=== PATIENT | male | born 1940 | race Caucasian/White ===

== ENCOUNTER 2019-08-16 09:16 | Inpatient (IN) | payer OTHER, MEDICARE ==
[2019-08-16] MEDS ORDERED: IPRATROPIUM-ALBUTEROL 3 ML NEB INHALATION STA (09:26)
[2019-08-16] MEDS ORDERED: methylPREDNISolone SOD SUCCI 125 MG/2 ML VIAL IV STA (09:26)
[2019-08-16] MEDS ORDERED: SODIUM CHLORIDE 0.9% 1,000 ML IV STA (09:26)
[2019-08-16] MEDS ORDERED: KETOROLAC 30 MG/ML 1 ML VIAL IVP STA (09:27)
[2019-08-16 09:49] LABS: Basophils % (A) 0 %; Eosinophils # (A) 0.5 k/uL (0-0.7); Eosinophils % (A) 3 %; HCT 45.1 % (39.0-53.0); HGB 13.7 gm/dL (13.0-17.5); Hypochromasia Slight; Lymphocytes # (A) 1.7 k/uL (1.0-4.8); Lymphocytes % (A) 12 %; MCH 29.4 pg (25.0-35.0); MCHC 30.4 g/dL (31.0-37.0); MCV 96.7 fL (80.0-100.0); Mean Platelet Volume 6.3; Monocytes # (A) 0.9 k/uL (0-1.0); Monocytes % (A) 6 %; Neutrophils # (A) 10.9 k/uL (1.3-7.7); Neutrophils % (A) 77 %; Platelet Count 297 k/uL (150-450); RBC 4.67 m/uL (4.30-5.90); RDW 15.1 % (11.5-15.5); WBC 14.2 k/uL (3.8-10.6)
--- NOTE | 2019-08-16 09:52 | ED ---
Chest Pain HPI - General Chief Complaint: Chest Pain Stated Complaint: chest pain Time Seen by Provider: 08/16/19 09:16 Source: patient, family, EMS, RN notes reviewed Mode of arrival: EMS Limitations: no limitations - History of Present Illness Initial Comments: This 79-year-old male with a history of smoking one half to 2 packs a day for a long period time who presents this morning by EMS with complaints of chest pain and shortness of breath. He states he had a cough with clear phlegm sharp left- sided chest pain currently is 4/10 severity though it was worse earlier. He denies any overt fevers chills or sweats. MD Complaint: chest pain, other - Related Data Previous Rx's Medication Instructions Recorded predniSONE 50 mg PO DAILY #5 tab 06/25/15 Allergies Allergy/AdvReac Type Severity Reaction Status Date / Time No Known Allergies Allergy Verified 06/25/15 11:02 Review of Systems ROS Statement: Those systems with pertinent positive or pertinent negative responses have been documented in the HPI. ROS Other: All systems not noted in ROS Statement are negative. Past Medical History Past Medical History: No Reported History History of Any Multi-Drug Resistant Organisms: None Reported Past Surgical History: No Surgical Hx Reported Past Psychological History: No Psychological Hx Reported Smoking Status: Current every day smoker Past Alcohol Use History: None Reported Past Drug Use History: None Reported General Exam - General Exam Comments Initial Comments: Is a well-developed asthenic appearing male who is awake alert oriented 3 Limitations: no limitations General appearance: alert, anxious Head exam: Present: atraumatic, normocephalic, normal inspection Eye exam: Present: normal appearance, PERRL, EOMI. Absent: scleral icterus, conjunctival injection, periorbital swelling ENT exam: Present: mucous membranes dry Neck exam: Present: normal inspection, full ROM, other (Stridor JVD or bruits). Absent: tenderness, meningismus, lymphadenopathy Respiratory exam: Present: wheezes, decreased breath sounds. Absent: respiratory distress, rales, rhonchi, stridor Cardiovascular Exam: Present: regular rate, normal rhythm, normal heart sounds. Absent: systolic murmur, diastolic murmur, rubs, gallop, clicks GI/Abdominal exam: Present: soft, normal bowel sounds. Absent: distended, tenderness, guarding, rebound, rigid, bruit, pulsatile mass Rectal exam: Present: deferred Extremities exam: Present: full ROM, normal capillary refill, other (Essential tremor noted to his right upper extremity trace edema to the lower extremities). Absent: tenderness, pedal edema, joint swelling, calf tenderness Back exam: Present: normal inspection Neurological exam: Present: alert, oriented X3, CN II-XII intact Psychiatric exam: Present: normal affect, normal mood Skin exam: Present: warm, dry, intact, normal color. Absent: rash Course Vital Signs 08/16/19 08/16/19 08/16/19 09:18 09:19 09:30 Temperature 98.0 F Pulse Rate 81 85 Respiratory 20 18 Rate Blood Pressure 157/69 157/69 O2 Sat by Pulse 98 96 98 Oximetry 08/16/19 08/16/19 08/16/19 09:48 09:57 10:00 Temperature Pulse Rate 72 74 71 Respiratory 18 Rate Blood Pressure 135/62 O2 Sat by Pulse 98 Oximetry 08/16/19 08/16/19 08/16/19 10:30 11:00 11:30 Temperature Pulse Rate 66 65 64 Respiratory 18 20 18 Rate Blood Pressure 133/62 104/60 126/56 O2 Sat by Pulse 98 96 97 Oximetry 08/16/19 12:00 Temperature Pulse Rate 66 Respiratory 18 Rate Blood Pressure 110/47 O2 Sat by Pulse 96 Oximetry - Reevaluation(s) Reevaluation #1: 08/16/19 14:55 Reevaluation patient revealed some improvement in his aeration hour he still markedly dyspneic still his vital signs do appear stable however he has diffuse wheezing still and accessory muscle use. Procedures - Smoking Cessation Time Spent Discussing Smoking Cessation w/Patient (Minutes): 3 Patient Acknowledges Need for Cessation: Yes Chest Pain MDM - MDM Patient already chest pain though he is still dyspneic. I did discuss the case with the patient family as well as with Dr. Vega who is covering Dr. Enoch Vu today. Patient be admitted with consultation by Dr. Longo. Disposition Clinical Impression: COPD exacerbation, Chest pain, Smoking Disposition: ADMITTED IP TO THIS [facility] Condition: Fair Referrals: Carlos Mireles MD [Primary Care Provider] - 1-2 days
[2019-08-16 09:57] LABS: INR 0.9 (<1.2); Partial Thromboplastin Time 23.8 sec (22.0-30.0); Prothrombin Time 10.2 sec (9.0-12.0)
[2019-08-16 10:00] LABS: ALT 32 U/L (21-72); AST 27 U/L (17-59); African American GFR (CKD) >90 (>60 ml/min/1.73 sqM); Albumin 4.1 g/dL (3.5-5.0); Alkaline Phosphatase 78 U/L (38-126); Anion Gap 6 mmol/L; Blood Urea Nitrogen 21 mg/dL (9-20); Calcium 9.4 mg/dL (8.4-10.2); Carbon Dioxide 31 mmol/L (22-30); Chloride 104 mmol/L (98-107); Creatine Kinase <20 U/L (55-170); Glucose 125 mg/dL (74-99); Magnesium 1.9 mg/dL (1.6-2.3); Non-African American GFR(CKD) 86 (>60 ml/min/1.73 sqM); Potassium 5.2 mmol/L (3.5-5.1); Sodium 141 mmol/L (137-145); Total Bilirubin 0.6 mg/dL (0.2-1.3); Total Protein 7.4 g/dL (6.3-8.2)
[2019-08-16] MEDS ORDERED: NICOTINE 21MG/24HR PATCH TRANSDERM STA (15:02)
[2019-08-16] MEDS: IPRATROPIUM-ALBUTEROL 3 ML NEB INHALATION SCH ×3 (15:44→23:48)
[2019-08-16] MEDS: SODIUM CHLORIDE 0.9% 1,000 ML IV SCH ×2 (17:01→22:56)
--- NOTE | 2019-08-16 17:27 | XR ---
EXAMINATION TYPE: XR chest 2V DATE OF EXAM: 08/16/2019 COMPARISON: NONE TECHNIQUE: PA and lateral views submitted. HISTORY: Difficulty breathing FINDINGS: The lungs are clear and there is no pneumothorax, pleural effusion, or focal pneumonia. Hyperinflat ion suggests COPD. Degenerative change of the spine. No overt failure. Diffuse osteopenia. IMPRESSION: 1. Correlate for COPD. Mild interstitial prominence may represent chronic lung disease. With no prior exam available for comparison mild venous congestion would be difficult to exclude correlate clinica lly..
[2019-08-16] MEDS: methylPREDNISolone SOD SUCCI 125 MG/2 ML VIAL IV SCH ×2 (18:10→22:56)
[2019-08-16] MEDS: HEPARIN SODIUM,PORCINE 5,000 UNIT/ML 1 ML VIAL SQ SCH (19:30)
[2019-08-16] MEDS: ATORVASTATIN 20 MG TAB PO SCH (19:30)
[2019-08-16 20:10] LABS: Glucose,Whole Blood 314 mg/dL (75-99)
[2019-08-16] MEDS: INSULIN ASPART (NovoLOG) 100 UNIT/ML VIAL SQ SCH (20:12)
[2019-08-17] MEDS: IPRATROPIUM-ALBUTEROL 3 ML NEB INHALATION SCH ×5 (03:48→19:57)
[2019-08-17 06:29] LABS: Glucose,Whole Blood 174 mg/dL (75-99)
[2019-08-17] MEDS: INSULIN ASPART (NovoLOG) 100 UNIT/ML VIAL SQ SCH ×4 (06:29→20:57)
[2019-08-17] MEDS: PANTOPRAZOLE 40 MG TABLET PO SCH (06:29)
[2019-08-17] MEDS: methylPREDNISolone SOD SUCCI 125 MG/2 ML VIAL IV SCH ×4 (06:29→23:16)
[2019-08-17] MEDS: HEPARIN SODIUM,PORCINE 5,000 UNIT/ML 1 ML VIAL SQ SCH ×2 (08:15→20:57)
[2019-08-17] MEDS: NADOLOL 20 MG TAB PO SCH (08:15)
[2019-08-17] MEDS: CLOPIDOGREL 75 MG TAB PO SCH (08:15)
[2019-08-17] MEDS: SODIUM CHLORIDE 0.9% 1,000 ML IV SCH ×2 (11:24→23:18)
[2019-08-17] MEDS: AZITHROMYCIN 500 MG TAB PO SCH (11:24)
--- NOTE | 2019-08-17 11:54 | P.HPIM ---
History of Present Illness H&P Date: 08/17/19 Chief Complaint: Chest pain This is an 79-year-old male patient of Dr. Carlos Mireles with past medical history of severe peripheral vascular disease treated at [facility], COPD, hyperlipidemia. Patient presented complaining of achy-type midsternal chest pain onset while he was watching TV. He states he has never had this type of pain before. He denies any nausea. No dizziness or lightheadedness. No sweats. Patient states his legs do get tired when he ambulates. Patient is noted to have right hand and mouth tremors which he states of been chronic. No new onset of tremors. Patient presented to [facility] emergency center for evaluation. EKG was a sinus arrhythmia. WBC 14.2, hemoglobin 13.7, BUN 21 creatinine 0.75, potassium 5.2. Initial blood sugar 125. Troponins negative on 2 draws. Chest x-ray shows COPD. Mild interstitial prominence may represent chronic lung disease. No prior exam for comparison. Patient was admitted to the cardiac stepdown unit and consult requested with holding medicine and cardiology. Subs equently d-dimer was elevated 1.[address] of the chest will be ordered. Review of Systems Constitutional: Denies chills, Denies fever, Denies poor appetite, Denies weakness Eyes: denies blurred vision, denies pain Ears, nose, mouth and throat: Denies headache, Denies nasal congestion, Denies nasal discharge, Denies sore throat, Denies vertigo Cardiovascular: Reports chest pain, Reports dyspnea on exertion, Reports shortness of breath, Denies edema, Denies leg edema Respiratory: Reports cough, Reports cough with sputum, Reports dyspnea, Denies excessive sputum, Denies hemoptysis, Denies home oxygen, Denies sleep apnea Gastrointestinal: Denies abdominal pain, Denies diarrhea, Denies loss of appetite, Denies nausea, Denies vomiting Genitourinary: Denies dysuria, Denies urinary retention Musculoskeletal: Reports muscle weakness, Denies frequent falls, Denies myalgias Integumentary: Denies pruritus, Denies rash, Denies wounds Neurological: Denies change in mentation, Denies change in speech, Denies numbness, Denies weakness Psychiatric: Denies anxiety, Denies depression Endocrine: Denies fatigue, Denies weight change Past Medical History Past Medical History: No Reported History, Hyperlipidemia, Hypertension Additional Past Medical History / Comment(s): Peripheral vascular disease History of Any Multi-Drug Resistant Organisms: None Reported Past Surgical History: No Surgical Hx Reported Additional Past Surgical History / Comment(s): Fem-fem bypass at [facility] Past Anesthesia/Blood Transfusion Reactions: No Reported Reaction Past Psychological History: No Psychological Hx Reported Smoking Status: Current every day smoker Past Alcohol Use History: None Reported Additional Past Alcohol Use History / Comment(s): Patient is a smoker of 2 packs per day of cigars ([employer]) and has been smoking for almost 70 years. He denies any alcohol use. Past Drug Use History: None Reported - Past Family History Father History Unknown: Yes Additional Family Medical History / Comment(s): Father at age 93 from old age. Mother Family Medical History: CVA/TIA Additional Family Medical History / Comment(s): Mother in her 70s. Unknown cause. Sister(s) Additional Family Medical History / Comment(s): Patient has 4 sisters and 2 from motor vehicle accident. Patient has one son that suffers from alcohol abuse. Patient has 2 daughters and one has from a brain aneurysm. Medications and Allergies Home Medications Medication Instructions Recorded Confirmed Type Atorvastatin [Lipitor] 20 mg PO HS 08/16/19 08/16/19 History Clopidogrel [Plavix] 75 mg PO DAILY 08/16/19 08/16/19 History Nadolol 40 mg PO DAILY 08/16/19 08/16/19 History Allergies Allergy/AdvReac Type Severity Reaction Status Date / Time No Known Allergies Allergy Verified 08/16/19 15:47 Physical Exam Vitals: Vital Signs Temp Pulse Pulse Resp BP BP Pulse Ox 08/17/19 08:50 72 93 L 08/17/19 08:00 97.9 F 79 18 111/60 95 08/17/19 04:07 62 08/17/19 03:49 67 94 L 08/17/19 03:36 98.2 F 58 L 18 126/58 97 08/17/19 00:02 64 08/16/19 23:55 57 L 18 124/56 96 08/16/19 23:49 64 08/16/19 20:52 68 16 08/16/19 20:39 65 98 08/16/19 19:31 98 F 59 L 20 148/64 97 08/16/19 16:00 66 22 130/42 125/62 92 L 08/16/19 15:30 130/63 97 08/16/19 15:00 59 L 18 133/64 97 08/16/19 14:00 51 L 18 120/65 96 08/16/19 13:00 56 L 18 105/56 95 08/16/19 12:00 66 18 110/47 96 08/16/19 11:30 64 18 126/56 97 08/16/19 11:00 65 20 104/60 96 08/16/19 10:30 66 18 133/62 98 08/16/19 10:00 71 18 135/62 98 08/16/19 09:57 74 08/16/19 09:48 72 08/16/19 09:30 85 18 157/69 98 08/16/19 09:19 96 08/16/19 09:18 98.0 F 81 20 157/69 98 Intake and Output 08/16/19 08/17/19 08/17/19 22:59 06:59 14:59 Intake Total 700 Balance 700 Intake: Intake, IV Titration 200 Amount Sodium Chloride 0.9% 1, 200 000 ml @ 100 mls/hr IV . Q10H [facility] Rx#:[id number] Oral 500 Other: # Voids 0 1 Weight 45.359 kg 46.1 kg Gen: This is a thin cachectic appearing 79-year-old male. He is resting in bed and appears to be comfortable and in no acute distress. No resp iratory distress noted. HEENT: Head is atraumatic, normocephalic. Pupils equal, round. Sclerae is an icteric. NECK: Supple. No JVD. No lymphadenopathy. No thyromegaly. LUNGS: Bilateral expiratory wheezing. Prolonged expiratory phase. No intercostal retractions. No intercostal retractions. HEART: Regular rate and rhythm. No murmur. ABDOMEN: Soft. Bowel sounds are present. No masses. No tenderness. EXTREMITIES: No pedal edema. No calf tenderness. Dorsalis pedis +1 bilaterally. Right hand and mouth tremor. NEUROLOGICAL: Patient is awake, alert and oriented x3. Cranial nerves 2 through 12 are grossly intact. Results CBC & Chem 7: 08/16/19 09:30 08/16/19 09:30 Labs: Abnormal Lab Results - Last 24 Hours (Table) 08/16/19 08/16/19 08/16/19 Range/Units 09:30 09:30 20:09 WBC 14.2 H (3.8-10.6) k/uL MCHC 30.4 L (31.0-37.0) g/dL Neutrophils # 10.9 H (1.3-7.7) k/uL Potassium 5.2 H (3.5-5.1) mmol/L Carbon Dioxide 31 H (22-30) mmol/L BUN 21 H (9-20) mg/dL Glucose 125 H (74-99) mg/dL POC Glucose (mg/dL) 314 H (75-99) mg/dL Creatine Kinase <20 L (55-170) U/L 08/17/19 Range/Units 06:27 WBC (3.8-10.6) k/uL MCHC (31.0-37.0) g/dL Neutrophils # (1.3-7.7) k/uL Potassium (3.5-5.1) mmol/L Carbon Dioxide (22-30) mmol/L BUN (9-20) mg/dL Glucose (74-99) mg/dL POC Glucose (mg/dL) 174 H (75-99) mg/dL Creatine Kinase (55-170) U/L Thrombosis Risk Factor Assmnt - DVT/VTE Prophylaxis DVT/VTE Prophylaxis: Pharmacologic Prophylaxis ordered - Choose All That Apply Each Factor Represents 1 point: Abnormal pulmonary function (COPD) Each Risk Factor Represents 2 Points: Arthroscopic surgery Other congenital or acquired thrombophilia - If yes, enter type in comment: No Thrombosis Risk Factor Assessment Total Risk Factor Score: 3 Thrombosis Risk Factor Assessment Level: Moderate Risk Assessment and Plan Plan: 1. Acute chest pain. Consult with cardiology, echocardiogram. 2. Acute exacerbation of COPD. Consult with Dr. Aj. Continue DuoNeb sj atments every 4 hours, Solu-Medrol 60 mg IV every 6 hours. CTA of the chest ordered for elevated d-dimer. 3. Severe peripheral vascular disease. Continue Plavix 75 mg daily, atorvastatin 60 mg daily. 4. Hypertension. Continue Corgard 40 mg daily. 5. Tobacco use and dependence. Continue nicotine patch. 6. DVT prophylaxis. Heparin subcu. 7. GI prophylaxis. Protonix. Patient will be admitted to the hospital for a minimum of 2 night stay. Discharge plan: Most likely return home. Impression and plan of care have been directed as dictated by the signing physician. Lexie Montenegro nurse practitioner acting as scribe for signing physician.
[2019-08-17 11:57] LABS: Glucose,Whole Blood 170 mg/dL (75-99)
--- NOTE | 2019-08-17 13:08 | CT ---
EXAMINATION TYPE: CT angio chest DATE OF EXAM: 08/17/2019 12:35 PM COMPARISON: None. HISTORY: Dyspnea CT DLP: 227 mGycm Automated exposure control for dose reduction was used. CONTRAST: CTA scan of the thorax is performed with IV Contrast, patient injected with 68 mL of Isovue 370, pulm onary embolism protocol. . FINDINGS: There are emphysematous changes throughout the lungs with bullous changes at the lung apice s. There is some dependent atelectasis within the dependent portions of the lungs. There is no significant axillary, mediastinal or hilar adenopathy. There is no evidence of pulmonary embolus. The aorta is normal in caliber without evidence of dissection. There is no pleural or pericardial flu id. The heart is not enlarged. Visualized portions of the upper abdomen are unremarkable. There is hypertrophic spondylosis and degenerative disc disease within the dorsal spine. IMPRESSION: 1. THIS EXAMINATION IS NEGATIVE FOR PULMONARY EMBOLUS. 2. MODERATE CHANGES OF EMPHYSEMA. 3. DEGENERATIVE CHANGES IN SPINE
--- NOTE | 2019-08-17 13:08 | P.CNPUL ---
History of Present Illness Consult date: 08/17/19 Reason for consult: dyspnea, chest pain Chief complaint: Dyspnea, chest pain History of present illness: This is a 79-year-old white male patient of Dr. Mireles, with extensive history of smoking, patient smokes 2 packs a day for almost 70 years, COPD, severe peripheral vascular disease, who presented to the emergency department on 08/16/2019 with complaints of increasing shortness of breath and pressure-like sensation in his mid sternum. The pressure in his chest had started on Sunday night, and patient was taken to baby aspirin every 4 hours with no relief, he continued on until 7:00 Sunday morning, and patient came into the emergency department for evaluation, he denied any cough or congestion, denied any wheezing, no fever or chills, nausea, or vomiting. Denied any diaphoresis, denied pain radiating to his arms or his neck. He is not normally on any oxygen, he is not on any inhalers or breathing treatments, has never seen a lung doctor before. EKG showed normal sinus rhythm with sinus arrhythmia with no acute ischemic changes. Chest x-ray showed COPD, mild interstitial prominence, possibly representing chronic lung disease. Labs showed white blood cell count of 14.2, hemoglobin of 13.7, platelet count of 297, coagulation profile was within normal limits, sodium is 141, potassium is 5.2, chloride is 104, CO2 31, BUN is 21 creatinine 0.75, troponin was negative 2, proBNP was 344. Patient was given supplement oxygen, and breathing treatments in the emergency department, and currently his midsternal chest pain has resolved, he is calm and comfortable, he is eating his breakfast. Room air pulse ox is 94%. Occasional cough, not any worse than usual, patient denied any hemoptysis, he does admit to 25 pound weight loss in the last 6 months, however his eating habits have changed as well and patient is eating a lot of frozen dinners. He was started on nebulized bronchodilators, and admitted for further management. Review of Systems All systems: negative Constitutional: Denies chills, Denies fever Eyes: denies blurred vision, denies pain Ears, nose, mouth and throat: Denies headache, Denies sore throat Cardiovascular: Reports chest pain, Denies shortness of breath Respiratory: Reports dyspnea, Denies cough Gastrointestinal: Denies abdominal pain, Denies diarrhea, Denies nausea, Denies vomiting Musculoskeletal: Denies myalgias Integumentary: Denies pruritus, Denies rash Neurological: Denies numbness, Denies weakness Psychiatric: Denies anxiety, Denies depression Endocrine: Denies fatigue, Denies weight change Past Medical History Past Medical History: No Reported History, Hyperlipidemia, Hypertension Additional Past Medical History / Comment(s): Peripheral vascular disease History of Any Multi-Drug Resistant Organisms: None Reported Past Surgical History: No Surgical Hx Reported Additional Past Surgical History / Comment(s): Fem-fem bypass at [facility] Past Anesthesia/Blood Transfusion Reactions: No Reported Reaction Past Psychological History: No Psychological Hx Reported Smoking Status: Current every day smoker Past Alcohol Use History: None Reported Additional Past Alcohol Use History / Comment(s): Patient is a smoker of 2 packs per day of cigars ([employer]) and has been smoking for almost 70 years. He denies any alcohol use. Past Drug Use History: None Reported - Past Family History Father History Unknown: Yes Additional Family Medical History / Comment(s): Father at age 93 from old age. Mother Family Medical History: CVA/TIA Additional Family Medical History / Comment(s): Mother in her 70s. Unknown cause. Sister(s) Additional Family Medical History / Comment(s): Patient has 4 sisters and 2 from motor vehicle accident. Patient has one son that suffers from alcohol abuse. Patient has 2 daughters and one has from a brain aneurysm. Medications and Allergies Home Medications Medication Instructions Recorded Confirmed Type Atorvastatin [Lipitor] 20 mg PO HS 08/16/19 08/16/19 History Clopidogrel [Plavix] 75 mg PO DAILY 08/16/19 08/16/19 History Nadolol 40 mg PO DAILY 08/16/19 08/16/19 History Allergies Allergy/AdvReac Type Severity Reaction Status Date / Time No Known Allergies Allergy Verified 08/16/19 15:47 Physical Exam Vitals: Vital Signs Temp Pulse Pulse Resp BP BP Pulse Ox 08/17/19 12:00 70 18 08/17/19 11:58 72 08/17/19 11:52 72 08/17/19 11:22 97.9 F 70 18 133/65 94 L 08/17/19 09:06 68 08/17/19 08:50 72 93 L 08/17/19 08:00 97.9 F 79 18 111/60 95 08/17/19 04:07 62 08/17/19 03:49 67 94 L 08/17/19 03:36 98.2 F 58 L 18 126/58 97 08/17/19 00:02 64 08/16/19 23:55 57 L 18 124/56 96 08/16/19 23:49 64 08/16/19 20:52 68 16 08/16/19 20:39 65 98 08/16/19 19:31 98 F 59 L 20 148/64 97 08/16/19 16:00 66 22 130/42 125/62 92 L 08/16/19 15:30 130/63 97 08/16/19 15:00 59 L 18 133/64 97 08/16/19 14:00 51 L 18 120/65 96 08/16/19 13:00 56 L 18 105/56 95 Intake and Output 08/16/19 08/17/19 08/17/19 22:59 06:59 14:59 Intake Total 700 480 Balance 700 480 Intake: Intake, IV Titration 200 Amount Sodium Chloride 0.9% 1, 200 000 ml @ 100 mls/hr IV . Q10H [facility] Rx#:[id number] Oral 500 480 Other: # Voids 0 1 Weight 45.359 kg 46.1 kg GENERAL EXAM: Alert, very pleasant, 79-year-old white male, on room air, with a pulse ox of 94% comfortable in no apparent distress. HEAD: Normocephalic/atraumatic. EYES: Normal reaction of pupils, equal size. Conjunctiva pink, sclera white. NOSE: Clear with pink turbinates. THROAT: No erythema or exudates. NECK: No masses, no JVD, no thyroid enlargement, no adenopathy. CHEST: No chest wall deformity. Symmetrical expansion. LUNGS: Equal air entry with basilar crackles, no wheeze, rhonchi or dullness. CVS: Regular rate and rhythm, normal S1 and S2, no gallops, no murmurs, no rubs ABDOMEN: Soft, nontender. No hepatosplenomegaly, normal bowel sounds, no guarding or rigidity. EXTREMITIES: No clubbing, no edema, no cyanosis, 2+ pulses and upper and lower extremities. MUSCULOSKELETAL: Muscle strength and tone normal. SPINE: No scoliosis or deformity SKIN: No rashes CENTRAL NERVOUS SYSTEM: Alert and oriented -3. No focal deficits, tone is normal in all 4 extremities. PSYCHIATRIC: Alert and oriented -3. Appropriate affect. Intact judgment and insight. Results - Laboratory Findings CBC and BMP: 08/16/19 09:30 08/16/19 09:30 PT/INR, D-dimer PT 10.2 sec (9.0-12.0) 08/16/19 09:30 INR 0.9 (<1.2) 08/16/19 09:30 D-Dimer 1.04 mg/L FEU (<0.60) H 08/17/19 08:56 Abnormal lab findings: Abnormal Labs 08/16/19 08/16/19 08/16/19 09:30 09:30 20:09 WBC 14.2 H MCHC 30.4 L Neutrophils # 10.9 H D-Dimer Potassium 5.2 H Carbon Dioxide 31 H BUN 21 H Glucose 125 H POC Glucose (mg/dL) 314 H Creatine Kinase <20 L 08/17/19 08/17/19 08/17/19 06:27 08:56 11:50 WBC MCHC Neutrophils # D-Dimer 1.04 H Potassium Carbon Dioxide BUN Glucose POC Glucose (mg/dL) 174 H 170 H Creatine Kinase - Diagnostic Findings Chest x-ray: report reviewed, image reviewed Assessment and Plan Plan: Assessment: #1. Acute dyspnea likely related to acute exacerbation of chronic obstructive pulmonary disease #2. Elevated d-dimer, rule out thromboembolic disease #3. Chest pain, troponins were negative 2, EKG without acute ischemic changes #4. 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 Chronic and ongoing nicotine dependence, 2 packs per day for 70 years #6. Recent weight loss 25 pounds in the last 6 months #7. Severe peripheral vascular disease #8. Hypertension #9. Hyperlipidemia Plan: Chest x-ray has been reviewed, showing COPD with interstitial prominence could be related to underlying chronic lung disease, CTA chest ending to rule out p ulmonary embolism. Hemodynamically patient is stable. We'll add Zithromax for empiric antibiotic coverage, continue with nebulized bronchodilators, and steroids. We'll continue to follow. Patient is being treated for acute exacerbation of COPD. Cardiac evaluation is pending I performed a history & physical examination of the patient and discussed their management with my nurse practitioner, Olivia Toledo. I reviewed the nurse practitioner's note and agree with the documented findings and plan of care. Lung sounds are positive for diffuse wheezes throughout the lung vazquez. The findings and the impression was discussed with the patient. I attest to the documentation by the nurse practitioner. Time with Patient: Greater than 30
[2019-08-17 14:19] VITALS: BMI 18.6
[2019-08-17 17:01] LABS: Glucose,Whole Blood 166 mg/dL (75-99)
[2019-08-17 17:50] LABS: Glucose,Whole Blood 151 mg/dL (75-99)
[2019-08-17 20:28] LABS: Glucose,Whole Blood 186 mg/dL (75-99)
[2019-08-17] MEDS: ATORVASTATIN 20 MG TAB PO SCH (20:57)
[2019-08-17] MEDS ORDERED: IPRATROPIUM-ALBUTEROL 3 ML NEB INHALATION PRN (22:01)
[2019-08-18] MEDS: methylPREDNISolone SOD SUCCI 125 MG/2 ML VIAL IV SCH ×4 (06:25→23:17)
[2019-08-18] MEDS: PANTOPRAZOLE 40 MG TABLET PO SCH (06:25)
[2019-08-18] MEDS: INSULIN ASPART (NovoLOG) 100 UNIT/ML VIAL SQ SCH ×4 (06:26→20:46)
[2019-08-18] MEDS: IPRATROPIUM-ALBUTEROL 3 ML NEB INHALATION SCH ×4 (07:00→20:07)
[2019-08-18] MEDS: HEPARIN SODIUM,PORCINE 5,000 UNIT/ML 1 ML VIAL SQ SCH ×2 (08:42→20:47)
[2019-08-18] MEDS: AZITHROMYCIN 500 MG TAB PO SCH (08:45)
[2019-08-18] MEDS: NADOLOL 20 MG TAB PO SCH (08:45)
[2019-08-18] MEDS: CLOPIDOGREL 75 MG TAB PO SCH (08:45)
[2019-08-18] MEDS: NICOTINE 21MG/24HR PATCH TRANSDERM SCH (08:45)
--- NOTE | 2019-08-18 10:35 | ECHOF ---
Referral Reason:LVF MEASUREMENTS -------- HEIGHT: 157.5 cm WEIGHT: 45.8 kg BP: IVSd: 1.1 cm (0.6 - 1.1) LVIDd: 3.0 cm (3.9 - 5.3) LVPWd: 1.3 cm (0.6 - 1.1) IVSs: 1.4 cm LVIDs: 2.0 cm LVPWs: 1.7 cm LAESV Index (A-L): 24.41 ml/m Ao Diam: 2.5 cm (2.0 - 3.7) AV Cusp: 1.6 cm (1.5 - 2.6) LA Diam: 3.4 cm (2.7 - 3.8) MV EXCURSION: 11.540 mm (> 18.000) MV EF SLOPE: 67 mm/s (70 - 150) EPSS: 0.6 cm MV E Juan A: 0.85 m/s MV DecT: 193 ms MV A Juan A: 0.91 m/s MV E/A Ratio: 0.93 RAP: 5.00 mmHg RVSP: 35.93 mmHg TAPSE: 21.87 mm FINDINGS -------- Sinus rhythm. This was a technically good study. The left ventricular size is normal. There is mild concentric left ventricular hypertrophy. Overa ll left ventricular systolic function is normal with, an EF between 55 - 60 %. The diastolic fillin g pattern is normal for the age of the patient 13.29. The right ventricle is normal in size. The right ventricular systolic function is normal. The left atrial size is normal. The right atrial size is normal. Aortic valve is trileaflet and is mildly thickened. The mitral valve is normal. The mitral valve leaflets are mildly thickened. Tsmg-gg-icivegyk mitr al regurgitation is present. The tricuspid valve appears structurally normal. Mild tricuspid regurgitation present. There is m ild pulmonary hypertension. The right ventricular systolic pressure, as measured by Doppler, is 35. 93mmHg. There is no pulmonic regurgitation present. The aortic root size is normal. Normal inferior vena cava with normal inspiratory collapse consistent with estimated right atrial pre ssure of 5 mmHg. There is no pericardial effusion. CONCLUSIONS -------- 1. Sinus rhythm. 2. This was a technically good study. 3. The left ventricular size is normal. 4. There is mild concentric left ventricular hypertrophy. 5. Overall left ventricular systolic function is normal with, an EF between 55 - 60 %. 6. The diastolic filling pattern is normal for the age of the patient 13.29 7. The right ventricle is normal in size. 8. The right ventricular systolic function is normal. 9. The left atrial size is normal. 10. The right atrial size is normal. 11. Aortic valve is trileaflet and is mildly thickened. 12. The mitral valve is normal. 13. The mitral valve leaflets are mildly thickened. 14. Oves-rn-cpfbuacv mitral regurgitation is present. 15. The tricuspid valve appears structurally normal. 16. Mild tricuspid regurgitation present. 17. There is mild pulmonary hypertension. 18. The right ventricular systolic pressure, as measured by Doppler, is 35.93mmHg. 19. There is no pulmonic regurgitation present. 20. The aortic root size is normal. 21. Normal inferior vena cava with normal inspiratory collapse consistent with estimated right atrial pressure of 5 mmHg. 22. There is no pericardial effusion. IT CONSULTANT: Gita Lutz RDCS
[2019-08-18 12:04] LABS: Glucose,Whole Blood 157 mg/dL (75-99)
--- NOTE | 2019-08-18 13:31 | CONS ---
CONSULTATION Mr. Leonard is an 79-year-old gentleman who is seen for cardiac evaluation. This patient has an extensive history of smoking. He has smoked 2 packs per day for last 70 years. Has a history of COPD and peripheral vascular disease. Patient presented with the symptoms of shortness of breath with some pressure-like sensation in the sternum. He has been having some cough with expectoration. He denied any significant chest pain. Patient does not have any prior history of myocardial infarction, diabetes or hypertension. Patient denies any orthopnea or PND. He did not have any fever or chills. PAST MEDICAL HISTORY: Past medical history includes history of fem-fem bypass at [facility], history of hypertension, hyperlipidemia, and peripheral vascular disease. HOME MEDICATIONS: Home medications include Lipitor, Plavix, nadolol 40 mg daily. In the emergency room, patient's oxygen saturation was 92% to 94%. At present, patient is lying comfortably in the bed without any respiratory distress. The heart rate is 60 per minute, blood pressure is 121/52 mmHg. HEENT examination is negative. Neck is supple. There is no increase in jugular venous pressure. Both the carotid pulses are felt. There is no bruit. Chest is symmetrical. HEART: The PMI is not felt. First and second heart sounds are heard. Lung examination revealed bilateral rhonchi. Abdomen is soft. Liver and spleen are not enlarged. EXTREMITIES: There is no evidence of any significant leg edema. Patient's chest x-ray does not show any left ventricular failure. The patient's proBNP level he is 344. EKG shows a normal sinus rhythm without any acute ischemic changes. FINAL IMPRESSION: This patient is primarily admitted with acute exacerbation chronic obstructive pulmonary disease. There is no evidence of any significant congestive cardiac failure. We will continue the current medications. Echocardiogram reveals normal left ventricular systolic function. MMODL / IJN: [id number] /
--- NOTE | 2019-08-18 13:51 | P.PN ---
Subjective Progress Note Date: 08/18/19 This is an 79-year-old male patient of Dr. Carlos Mireles with past medical history of severe peripheral vascular disease treated at [facility], COPD, hyperlipidemia. Patient presented complaining of achy-type midsternal chest pain onset while he was watching TV. He states he has never had this type of pain before. He denies any nausea. No dizziness or lightheadedness. No sweats. Patient states his legs do get tired when he ambulates. Patient is noted to have right hand and mouth tremors which he states of been chronic. No new onset of tremors. Patient presented to [facility] emergency center for evaluation. EKG was a sinus arrhythmia. WBC 14.2, hemoglobin 13.7, BUN 21 creatinine 0.75, potassium 5.2. Initial blood sugar 125. Troponins negative on 2 draws. Chest x-ray shows COPD. Mild interstitial prominence may represent chronic lung disease. No prior exam for comparison. Patient was admitted to the cardiac stepdown unit and consult requested with holding medicine and cardiology. Subsequently d-dimer was elevated 1.[address] of the chest will be ordered. 08/18: Patient continues to still have difficulty breathing and lungs are tight with wheezing. No change in medications will be made. He denies having any chest pain. IV fluids will be changed to saline lock. Echocardiogram revealed EF of 55-60%, mild to moderate mitral regurgitation, mild tricuspid regurgitation, mild pulmonary hypertension. Patient was seen in consultation by cardiology. CTA of the chest was negative for pulmonary embolus. Moderate changes of emphysema. Degenerative changes in spine. Patient voices frustration with a heart healthy diet. Patient's diet will be changed to regular and Ensure added. Review of Systems Constitutional: Denies chills, Denies fever, Denies poor appetite, Denies weakness Eyes: denies blurred vision, denies pain Ears, nose, mouth and throat: Denies headache, Denies nasal congestion, Denies nasal discharge, Denies sore throat, Denies vertigo Cardiovascular: Denies chest pain, Reports dyspnea on exertion, Reports shortness of breath, Denies edema, Denies leg edema Respiratory: Reports cough, Reports cough with sputum, Reports dyspnea, Denies excessive sputum, Denies hemoptysis, Denies home oxygen, Denies sleep apnea Gastrointestinal: Denies abdominal pain, Denies diarrhea, Denies loss of appetite, Denies nausea, Denies vomiting Genitourinary: Denies dysuria, Denies urinary retention Musculoskeletal: Reports muscle weakness, Denies frequent falls, Denies myalgias Integumentary: Denies pruritus, Denies rash, Denies wounds Neurological: Denies change in mentation, Denies change in speech, Denies numbness, Denies weakness Psychiatric: Denies anxiety, Denies depression Endocrine: Denies fatigue, Denies weight change Objective - Vital Signs Vital signs: Vital Signs Temp 97.8 F 08/18/19 08:00 Pulse 63 08/18/19 08:00 Resp 20 08/18/19 08:00 BP 138/62 08/18/19 08:00 Pulse Ox 94 L 08/18/19 08:00 Intake & Output 08/17/19 08/18/19 08/18/19 18:59 06:59 18:59 Intake Total 480 480 Balance 480 480 Weight 46.1 kg 47.8 kg Intake: Oral 480 480 Other: Voiding Method Toilet # Voids 3 - Exam Gen: This is a thin cachectic appearing 79-year-old male. He is resting in bed and appears to be comfortable and in no acute distress. No respiratory distress noted. HEENT: Head is atraumatic, normocephalic. Pupils equal, round. Sclerae is anicteric. NECK: Supple. No JVD. No lymphadenopathy. No thyromegaly. LUNGS: Bilateral expiratory wheezing. Prolonged expiratory phase. No intercostal retractions. No intercostal retractions. HEART: Regular rate and rhythm. No murmur. ABDOMEN: Soft. Bowel sounds are present. No masses. No tenderness. EXTREMITIES: No pedal edema. No calf tenderness. Dorsalis pedis +1 bilaterally. Right hand and mouth tremor. NEUROLOGICAL: Patient is awake, alert and oriented x3. Cranial nerves 2 through 12 are grossly intact. - Labs CBC & Chem 7: 08/16/19 09:30 08/16/19 09:30 Labs: Abnormal Lab Results - Last 24 Hours (Table) 08/17/19 08/17/19 08/17/19 Range/Units 11:50 16:59 17:49 POC Glucose (mg/dL) 170 H 166 H 151 H (75-99) mg/dL 08/17/19 Range/Units 20:25 POC Glucose (mg/dL) 186 H (75-99) mg/dL Assessment and Plan Plan: 1. Acute chest pain. Acute coronary syndrome ruled out. Consult with cardiology appreciated, echocardiogram. As above 2. Acute exacerbation of COPD. Consult with Dr. Longo. Continue DuoNeb treatments every 4 hours, Solu-Medrol 60 mg IV every 6 hours. CTA of the chest ruled out pulmonary embolism. 3. Severe peripheral vascular disease. Continue Plavix 75 mg daily, atorvastatin 60 mg daily. 4. Hypertension. Continue Corgard 40 mg daily. 5. Tobacco use and dependence. Continue nicotine patch. 6. DVT prophylaxis. Heparin subcu. 7. GI prophylaxis. Protonix. 8. Moderate protein calorie malnutrition. Diet changed to regular and Ensure added. Discharge plan: Most likely return home. Impression and plan of care have been directed as dictated by the signing physician. Lexie Montenegro nurse practitioner acting as scribe for signing physician.
--- NOTE | 2019-08-18 14:13 | P.PN ---
Subjective Progress Note Date: 08/18/19 Principal diagnosis: Dyspnea, chest pain This is a 79-year-old white male patient of Dr. Mireles, with extensive history of smoking, patient smokes 2 packs a day for almost 70 years, COPD, severe peripheral vascular disease, who presented to the emergency department on 08/16/2019 with complaints of increasing shortness of breath and pressure-like sensation in his mid sternum. The pressure in his chest had started on Sunday night, and patient was taken to baby aspirin every 4 hours with no relief, he continued on until 7:00 Sunday morning, and patient came into the emergency department for evaluation, he denied any cough or congestion, denied any wheezing, no fever or chills, nausea, or vomiting. Denied any diaphoresis, denied pain radiating to his arms or his neck. He is not normally on any oxygen, he is not on any inhalers or breathing treatments, has never seen a lung doctor before. EKG showed normal sinus rhythm with sinus arrhythmia with no acute ischemic changes. Chest x-ray showed COPD, mild interstitial prominence, possibly representing chronic lung disease. Labs showed white blood cell count of 14.2, hemoglobin of 13.7, platelet count of 297, coagulation profile was within normal limits, sodium is 141, potassium is 5.2, chloride is 104, CO2 31, BUN is 21 creatinine 0.75, troponin was negative 2, proBNP was 344. Patient was given supplement oxygen, and breathing treatments in the emergency department, and currently his midsternal chest pain has resolved, he is calm and comfortable, he is eating his breakfast. Room air pulse ox is 94%. Occasional cough, not any worse than usual, patient denied any hemoptysis, he does admit to 25 pound weight loss in the last 6 months, however his eating habits have changed as well and patient is eating a lot of frozen dinners. He was started on nebulized bronchodilators, and admitted for further management. On 08/28/2019 patient seen in follow-up on selective care unit, he is awake and alert, in no acute distress, he denies any chest pain, he denies any worsening of his breathing, lung sounds are diminished and are positive for end expiratory wheezing, no significant cough or congestion, yesterday CT chest was completed showing no evidence of pulmonary embolism and moderate changes of emphysema. 2 Sets of troponins were negative, echocardiogram revealed preserved left ventricular systolic function with an EF of 55-60%, mild to moderate mitral regurg, mild tricuspid regurg, mild pulmonary hypertension with right-sided pressures of 35 mmHg. Patient is on a combination of oral antibiotics, IV steroids, nebulized bronchodilators. Objective - Vital Signs Vital signs: Vital Signs Temp 97.8 F 08/18/19 11:28 Pulse 57 L 08/18/19 11:28 Resp 20 08/18/19 11:28 BP 121/52 08/18/19 11:28 Pulse Ox 95 08/18/19 11:28 Intake & Output 08/17/19 08/18/19 08/18/19 18:59 06:59 18:59 Intake Total 480 480 780 Balance 480 480 780 Weight 46.1 kg 47.8 kg Intake: IV 600 Sodium Chloride 0.9% 1, 600 000 ml @ 75 mls/hr IV . [id number] [facility] Rx#:[id number] Oral 480 480 180 Other: Voiding Method Toilet Toilet # Voids 3 - Exam GENERAL EXAM: Alert, very pleasant, 79-year-old white male, on room air, with a pulse ox of 95% 2 L of oxygen comfortable in no apparent distress. HEAD: Normocephalic/atraumatic. EYES: Normal reaction of pupils, equal size. Conjunctiva pink, sclera white. NOSE: Clear with pink turbinates. THROAT: No erythema or exudates. NECK: No masses, no JVD, no thyroid enlargement, no adenopathy. CHEST: No chest wall deformity. Symmetrical expansion. LUNGS: Equal air entry with basilar crackles, no wheeze, rhonchi or dullness. CVS: Regular rate and rhythm, normal S1 and S2, no gallops, no murmurs, no rubs ABDOMEN: Soft, nontender. No hepatosplenomegaly, normal bowel sounds, no guarding or rigidity. EXTREMITIES: No clubbing, no edema, no cyanosis, 2+ pulses and upper and lower extremities. MUSCULOSKELETAL: Muscle strength and tone normal. SPINE: No scoliosis or deformity SKIN: No rashes CENTRAL NERVOUS SYSTEM: Alert and oriented -3. No focal deficits, tone is normal in all 4 extremities. PSYCHIATRIC: Alert and oriented -3. Appropriate affect. Intact judgment and insight. - Labs CBC & Chem 7: 08/16/19 09:30 08/16/19 09:30 Labs: Abnormal Lab Results - Last 24 Hours (Table) 08/17/19 08/17/19 08/17/19 Range/Units 16:59 17:49 20:25 POC Glucose (mg/dL) 166 H 151 H 186 H (75-99) mg/dL 08/18/19 Range/Units 12:02 POC Glucose (mg/dL) 157 H (75-99) mg/dL Assessment and Plan Plan: Assessment: #1. Acute dyspnea likely related to acute exacerbation of chronic obstructive pulmonary disease #2. Elevated d-dimer, rule out thromboembolic disease #3. Chest pain, troponins were negative 2, EKG without acute ischemic changes #4. 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 Chronic and ongoing nicotine dependence, 2 packs per day for 70 years #6. Recent weight loss 25 pounds in the last 6 months #7. Severe peripheral vascular disease #8. Hypertension #9. Hyperlipidemia Plan: Continue current medical treatment, patient was seen by cardiology, and echocardiogram results were noted, preserved left ventricular systolic function, no recurrence of chest pain, troponins were negative, we'll treat the patient's COPD, patient started to improve some, continue IV steroids, antibiotics and nebulized bronchodilators, will follow I performed a history & physical examination of the patient and discussed their management with my nurse practitioner, Olivia Toledo. I reviewed the nurse practitioner's note and agree with the documented findings and plan of care. Lung sounds are positive for diffuse wheezes throughout the lung vazquez. The findings and the impression was discussed with the patient. I attest to the documentation by the nurse practitioner. Time with Patient: Less than 30
[2019-08-18 16:52] LABS: Glucose,Whole Blood 286 mg/dL (75-99)
[2019-08-18 20:39] LABS: Glucose,Whole Blood 184 mg/dL (75-99)
[2019-08-18] MEDS: ATORVASTATIN 20 MG TAB PO SCH (20:47)
[2019-08-19 06:50] LABS: Glucose,Whole Blood 139 mg/dL (75-99)
[2019-08-19] MEDS: INSULIN ASPART (NovoLOG) 100 UNIT/ML VIAL SQ SCH ×4 (06:50→20:20)
[2019-08-19] MEDS: PANTOPRAZOLE 40 MG TABLET PO SCH (06:50)
[2019-08-19] MEDS: methylPREDNISolone SOD SUCCI 125 MG/2 ML VIAL IV SCH (06:50)
[2019-08-19] MEDS: CLOPIDOGREL 75 MG TAB PO SCH (09:09)
[2019-08-19] MEDS: NADOLOL 20 MG TAB PO SCH (09:09)
[2019-08-19] MEDS: NICOTINE 21MG/24HR PATCH TRANSDERM SCH (09:09)
[2019-08-19] MEDS: HEPARIN SODIUM,PORCINE 5,000 UNIT/ML 1 ML VIAL SQ SCH ×2 (09:09→20:20)
[2019-08-19] MEDS: AZITHROMYCIN 500 MG TAB PO SCH (09:09)
[2019-08-19] MEDS: IPRATROPIUM-ALBUTEROL 3 ML NEB INHALATION SCH ×4 (09:29→19:09)
[2019-08-19 11:43] LABS: Glucose,Whole Blood 228 mg/dL (75-99)
--- NOTE | 2019-08-19 13:06 | P.PN ---
Subjective Progress Note Date: 08/19/19 This is an 79-year-old male patient of Dr. Carlos Mireles with past medical history of severe peripheral vascular disease treated at [facility], COPD, hyperlipidemia. Patient presented complaining of achy-type midsternal chest pain onset while he was watching TV. He states he has never had this type of pain before. He denies any nausea. No dizziness or lightheadedness. No sweats. Patient states his legs do get tired when he ambulates. Patient is noted to have right hand and mouth tremors which he states of been chronic. No new onset of tremors. Patient presented to [facility] emergency center for evaluation. EKG was a sinus arrhythmia. WBC 14.2, hemoglobin 13.7, BUN 21 creatinine 0.75, potassium 5.2. Initial blood sugar 125. Troponins negative on 2 draws. Chest x-ray shows COPD. Mild interstitial prominence may represent chronic lung disease. No prior exam for comparison. Patient was admitted to the cardiac stepdown unit and consult requested with holding medicine and cardiology. Subsequently d-dimer was elevated 1.[address] of the chest will be ordered. 08/18: Patient continues to still have difficulty breathing and lungs are tight with wheezing. No change in medications will be made. He denies having any chest pain. IV fluids will be changed to saline lock. Echocardiogram revealed EF of 55-60%, mild to moderate mitral regurgitation, mild tricuspid regurgitation, mild pulmonary hypertension. Patient was seen in consultation by cardiology. CTA of the chest was negative for pulmonary embolus. Moderate changes of emphysema. Degenerative changes in spine. Patient voices frustration with a heart healthy diet. Patient's diet will be changed to regular and Ensure added. 08/19: Patient has been afebrile, heart rate 60, blood pressure 121/67, pulse ox 90% on 3 L nasal cannula. Blood sugars running between 139 and 228. Patient has been seen by cardiology and pulmonary medicine. He denies having any chest pain. Breathing is improved from yesterday. We will plan to decrease IV steroids to 40 mg every 8 hours with plan for probable discharge on Sunday or . It appears patient most likely will require home oxygen. Review of Systems Constitutional: Denies chills, Denies fever, Denies poor appetite, Denies weakness Ears, nose, mouth and throat: Denies headache, Denies nasal congestion, Denies nasal discharge, Denies sore throat, Denies vertigo Cardiovascular: Denies chest pain, Reports dyspnea on exertion, Reports shortness of breath, Denies edema, Denies leg edema Respiratory: Reports cough, Reports cough with sputum, Reports dyspnea, Denies excessive sputum, Denies hemoptysis, Denies home oxygen, Denies sleep apnea Gastrointestinal: Denies abdominal pain, Denies diarrhea, Denies loss of appetite, Denies nausea, Denies vomiting Genitourinary: Denies dysuria, Denies urinary retention Musculoskeletal: Reports muscle weakness, Denies frequent falls, Denies myalgias Integumentary: Denies pruritus, Denies rash, Denies wounds Neurological: Denies change in mentation, Denies change in speech, Denies numbness, Denies weakness Psychiatric: Denies anxiety, Denies depression Endocrine: Denies fatigue, Denies weight change Objective - Vital Signs Vital signs: Vital Signs Temp 97.7 F 08/19/19 08:00 Pulse 68 08/19/19 09:46 Resp 20 08/19/19 08:00 BP 133/67 08/19/19 08:00 Pulse Ox 90 L 08/19/19 08:00 Intake & Output 08/18/19 08/19/19 08/19/19 18:59 06:59 18:59 Intake Total 1170 240 240 Balance 1170 240 240 Weight 48 kg Intake: IV 600 Sodium Chloride 0.9% 1, 600 000 ml @ 75 mls/hr IV . [id number] [facility] Rx#:[id number] Oral 570 240 240 Other: Voiding Method Toilet Toilet # Voids 1 2 1 - Exam Gen: This is a thin cachectic appearing 79-year-old male. He is resting in bed and appears to be comfortable and in no acute distress. No respiratory distress noted. HEENT: Head is atraumatic, normocephalic. Pupils equal, round. Sclerae is anicteric. NECK: Supple. No JVD. No lymphadenopathy. No thyromegaly. LUNGS: Bilateral expiratory wheezing. Improved from yesterday. Prolonged expiratory phase. No intercostal retractions. No intercostal retractions. HEART: Regular rate and rhythm. No murmur. ABDOMEN: Soft. Bowel sounds are present. No masses. No tenderness. EXTREMITIES: No pedal edema. No calf tenderness. Dorsalis pedis +1 bilaterally. Right hand and mouth tremor. NEUROLOGICAL: Patient is awake, alert and oriented x3. Cranial nerves 2 through 12 are grossly intact. - Labs CBC & Chem 7: 08/16/19 09:30 08/16/19 09:30 Labs: Abnormal Lab Results - Last 24 Hours (Table) 08/18/19 08/18/19 08/18/19 Range/Units 12:02 16:38 20:38 POC Glucose (mg/dL) 157 H 286 H 184 H (75-99) mg/dL 08/19/19 Range/Units 06:48 POC Glucose (mg/dL) 139 H (75-99) mg/dL Assessment and Plan Plan: 1. Acute chest pain. Acute coronary syndrome ruled out. Consult with c ardiology appreciated, echocardiogram. As above 2. Acute exacerbation of COPD. Consult with Dr. Longo. Continue DuoNeb treatments every 4 hours, Solu-Medrol decreased to 40 mg every 8 hours. CTA of the chest ruled out pulmonary embolism. 3. Severe peripheral vascular disease. Continue Plavix 75 mg daily, atorvastatin 60 mg daily. 4. Hypertension. Continue Corgard 40 mg daily. 5. Tobacco use and dependence. Continue nicotine patch. 6. DVT prophylaxis. Heparin subcu. 7. GI prophylaxis. Protonix. 8. Moderate protein calorie malnutrition. Diet changed to regular and Ensure added. Discharge plan: Most likely return home on Sunday or . Impression and plan of care have been directed as dictated by the signing physician. Lexie Montenegro nurse practitioner acting as scribe for signing physician.
--- NOTE | 2019-08-19 13:28 | P.PN ---
Subjective Progress Note Date: 08/19/19 Principal diagnosis: Acute exacerbation of chronic obstructive pulmonary disease. This is a 79-year-old white male patient of Dr. Mireles, with extensive history of smoking, patient smokes 2 packs a day for almost 70 years, COPD, severe peripheral vascular disease, who presented to the emergency department on 08/16/2019 with complaints of increasing shortness of breath and pressure-like sensation in his mid sternum. The pressure in his chest had started on Sunday night, and patient was taken to baby aspirin every 4 hours with no relief, he continued on until 7:00 Sunday morning, and patient came into the emergency department for evaluation, he denied any cough or congestion, denied any wheezing, no fever or chills, nausea, or vomiting. Denied any diaphoresis, de nied pain radiating to his arms or his neck. He is not normally on any oxygen, he is not on any inhalers or breathing treatments, has never seen a lung doctor before. EKG showed normal sinus rhythm with sinus arrhythmia with no acute ischemic changes. Chest x-ray showed COPD, mild interstitial prominence, possibly representing chronic lung disease. Labs showed white blood cell count of 14.2, hemoglobin of 13.7, platelet count of 297, coagulation profile was within normal limits, sodium is 141, potassium is 5.2, chloride is 104, CO2 31, BUN is 21 creatinine 0.75, troponin was negative 2, proBNP was 344. Patient was given supplement oxygen, and breathing treatments in the emergency depar tment, and currently his midsternal chest pain has resolved, he is calm and comfortable, he is eating his breakfast. Room air pulse ox is 94%. Occasional cough, not any worse than usual, patient denied any hemoptysis, he does admit to 25 pound weight loss in the last 6 months, however his eating habits have changed as well and patient is eating a lot of frozen dinners. He was started on nebulized bronchodilators, and admitted for further management. The patient is seen today 08/19/2019 in follow-up on the selective care unit. He is awake and alert in no acute distress. His breathing is improved but not quite back to his baseline. He did desaturate to 85% according to his nurse and will need home oxygen. Currently maintaining O2 saturations 90% on 3 L/m per nasal cannula. He's been afebrile. Hemodynamically stable. He is maintained on DuoNeb inhalations, IV Solu-Medrol, antibiotics in the form of azithromycin and NicoDerm patch. Objective - Vital Signs Vital signs: Vital Signs Temp 97 F L 08/19/19 11:44 Pulse 64 08/19/19 12:33 Resp 20 08/19/19 11:44 BP 121/67 08/19/19 11:44 Pulse Ox 90 L 08/19/19 11:44 Intake & Output 08/18/19 08/19/19 08/19/19 18:59 06:59 18:59 Intake Total 1170 240 240 Balance 1170 240 240 Weight 48 kg Intake: IV 600 Sodium Chloride 0.9% 1, 600 000 ml @ 75 mls/hr IV . [id number] [facility] Rx#:[id number] Oral 570 240 240 Other: Voiding Method Toilet Toilet Toilet # Voids 1 2 1 - Exam GENERAL EXAM: Alert, very pleasant, 79-year-old male patient, on 3 L nasal cannula, with a pulse ox of 90% comfortable in no apparent distress. HEAD: Normocephalic/atraumatic. EYES: Normal reaction of pupils, equal size. Conjunctiva pink, sclera white. NOSE: Clear with pink turbinates. THROAT: No erythema or exudates. NECK: No masses, no JVD, no thyroid enlargement, no adenopathy. CHEST: No chest wall deformity. Symmetrical expansion. LUNGS: Equal air entry with basilar crackles, no wheeze, rhonchi or dullness. CVS: Regular rate and rhythm, normal S1 and S2, no gallops, no murmurs, no rubs ABDOMEN: Soft, nontender. No hepatosplenomegaly, normal bowel sounds, no guarding or rigidity. EXTREMITIES: No clubbing, no edema, no cyanosis, 2+ pulses and upper and lower extremities. MUSCULOSKELETAL: Muscle strength and tone normal. SPINE: No scoliosis or deformity SKIN: No rashes CENTRAL NERVOUS SYSTEM: No focal deficits, tone is normal in all 4 extremities. PSYCHIATRIC: Alert and oriented -3. Appropriate affect. Intact judgment and insight. - Labs CBC & Chem 7: 08/16/19 09:30 08/16/19 09:30 Labs: Abnormal Lab Results - Last 24 Hours (Table) 08/18/19 08/18/19 08/19/19 Range/Units 16:38 20:38 06:48 POC Glucose (mg/dL) 286 H 184 H 139 H (75-99) mg/dL 08/19/19 Range/Units 11:41 POC Glucose (mg/dL) 228 H (75-99) mg/dL Assessment and Plan Assessment: Assessment: #1. Acute dyspnea likely related to acute exacerbation of chronic obstructive pulmonary disease #2. Elevated d-dimer, rule out thromboembolic disease #3. Chest pain, troponins were negative 2, EKG without acute ischemic changes #4. 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 Chronic and ongoing nicotine dependence, 2 packs per day for 70 years #6. Recent weight loss 25 pounds in the last 6 months #7. Severe peripheral vascular disease #8. Hypertension #9. Hyperlipidemia Plan: The patient was seen and evaluated by Dr. Mera. He is improved today compared to yesterday. Not quite back to his baseline. Tapering steroids. Continue bronchodilators. Add Symbicort. He did desaturate to 85% according to staff on room air. Back up into the 90s on 3 L/m per nasal cannula. He will require home oxygen. He is educated again regarding the importance of complete smoking cessation. NicoDerm patch is in place. He would benefit from a follow-up in our office 1-2 weeks post discharge. We'll perform full pulmonary function testing and make further recommendations regarding maintenance medications. We'll continue to follow. I, the cosigning physician, performed a history & physical examination of the patient. Lungs sounds with bilateral end expiratory wheeze, diminished. Maintaining good O2 saturations in the 90s on 3 L/m per nasal cannula. I discussed the assessment and plan of care with my nurse practitioner, Farhana Matthews. I attest to the above note as dictated by her.
[2019-08-19] MEDS: methylPREDNISolone SOD SUCCI 40 MG/ML 1 ML VIAL IV SCH ×2 (16:16→23:25)
[2019-08-19 16:48] LABS: Glucose,Whole Blood 185 mg/dL (75-99)
[2019-08-19] MEDS: SYMBICORT 160-4.5 MCG INHALER INHALATION SCH (19:09)
[2019-08-19 20:04] LABS: Glucose,Whole Blood 223 mg/dL (75-99)
[2019-08-19] MEDS: ATORVASTATIN 20 MG TAB PO SCH (20:20)
[2019-08-20 06:17] LABS: Glucose,Whole Blood 175 mg/dL (75-99)
[2019-08-20] MEDS: INSULIN ASPART (NovoLOG) 100 UNIT/ML VIAL SQ SCH ×2 (06:18→13:31)
[2019-08-20] MEDS: PANTOPRAZOLE 40 MG TABLET PO SCH (06:18)
[2019-08-20 09:13] VITALS: BP 152/70; RESP 18; TEMP 97.5
[2019-08-20] MEDS: SYMBICORT 160-4.5 MCG INHALER INHALATION SCH (09:17)
[2019-08-20] MEDS: IPRATROPIUM-ALBUTEROL 3 ML NEB INHALATION SCH ×2 (09:18→12:47)
[2019-08-20] MEDS: methylPREDNISolone SOD SUCCI 40 MG/ML 1 ML VIAL IV SCH (09:24)
[2019-08-20] MEDS: NICOTINE 21MG/24HR PATCH TRANSDERM SCH (09:24)
[2019-08-20] MEDS: NADOLOL 20 MG TAB PO SCH (09:25)
[2019-08-20] MEDS: AZITHROMYCIN 500 MG TAB PO SCH (09:25)
[2019-08-20] MEDS: CLOPIDOGREL 75 MG TAB PO SCH (09:25)
[2019-08-20] MEDS: HEPARIN SODIUM,PORCINE 5,000 UNIT/ML 1 ML VIAL SQ SCH (09:25)
[2019-08-20 11:08] VITALS: PULSE 56
[2019-08-20 12:25] LABS: Glucose,Whole Blood 223 mg/dL (75-99)
--- NOTE | 2019-08-20 14:10 | P.PN ---
Subjective Progress Note Date: 08/20/19 Principal diagnosis: Acute exacerbation of chronic obstructive pulmonary disease. This is a 79-year-old white male patient of Dr. Mireles, with extensive history of smoking, patient smokes 2 packs a day for almost 70 years, COPD, severe peripheral vascular disease, who presented to the emergency department on 08/16/2019 with complaints of increasing shortness of breath and pressure-like sensation in his mid sternum. The pressure in his chest had started on Sunday night, and patient was taken to baby aspirin every 4 hours with no relief, he continued on until 7:00 Sunday morning, and patient came into the emergency department for evaluation, he denied any cough or congestion, denied any wheezing, no fever or chills, nausea, or vomiting. Denied any diaphoresis, de nied pain radiating to his arms or his neck. He is not normally on any oxygen, he is not on any inhalers or breathing treatments, has never seen a lung doctor before. EKG showed normal sinus rhythm with sinus arrhythmia with no acute ischemic changes. Chest x-ray showed COPD, mild interstitial prominence, possibly representing chronic lung disease. Labs showed white blood cell count of 14.2, hemoglobin of 13.7, platelet count of 297, coagulation profile was within normal limits, sodium is 141, potassium is 5.2, chloride is 104, CO2 31, BUN is 21 creatinine 0.75, troponin was negative 2, proBNP was 344. Patient was given supplement oxygen, and breathing treatments in the emergency depar tment, and currently his midsternal chest pain has resolved, he is calm and comfortable, he is eating his breakfast. Room air pulse ox is 94%. Occasional cough, not any worse than usual, patient denied any hemoptysis, he does admit to 25 pound weight loss in the last 6 months, however his eating habits have changed as well and patient is eating a lot of frozen dinners. He was started on nebulized bronchodilators, and admitted for further management. The patient is seen today 08/19/2019 in follow-up on the selective care unit. He is awake and alert in no acute distress. His breathing is improved but not quite back to his baseline. He did desaturate to 85% according to his nurse and will need home oxygen. Currently maintaining O2 saturations 90% on 3 L/m per nasal cannula. He's been afebrile. Hemodynamically stable. He is maintained on DuoNeb inhalations, IV Solu-Medrol, antibiotics in the form of azithromycin and NicoDerm patch. The patient is seen today 08/20/2019 in follow-up on the selective care unit. He is awake and alert in no acute distress. He is back to his baseline. Hoping to go home. He is maintaining good O2 saturations in the 90s on 2 L/m per nasal cannula. He's been afebrile. Hemodynamically stable. He is continued on DuoNeb inhalations, Symbicort, IV Solu-Medrol and azithromycin. NicoDerm patch in place. Objective - Vital Signs Vital signs: Vital Signs Temp 97.5 F L 08/20/19 08:35 Pulse 64 08/20/19 09:30 Resp 18 08/20/19 08:35 BP 152/70 08/20/19 08:35 Pulse Ox 92 L 08/20/19 08:35 Intake & Output 08/19/19 08/20/19 08/20/19 18:59 06:59 18:59 Intake Total 240 232 240 Balance 240 232 240 Weight 48.9 kg Intake: IV 10 Invasive Line 1 10 Oral 240 222 240 Other: Voiding Method Toilet Toilet Toilet # Voids 1 1 - Exam GENERAL EXAM: Alert, very pleasant, 79-year-old male patient, on 2 L nasal cannula, with a pulse ox of 92% comfortable in no apparent distress. HEAD: Normocephalic/atraumatic. EYES: Normal reaction of pupils, equal size. Conjunctiva pink, sclera white. NOSE: Clear with pink turbinates. THROAT: No erythema or exudates. NECK: No masses, no JVD, no thyroid enlargement, no adenopathy. CHEST: No chest wall deformity. Symmetrical expansion. LUNGS: Equal air entry with basilar crackles, no wheeze, rhonchi or dullness. CVS: Regular rate and rhythm, normal S1 and S2, no gallops, no murmurs, no rubs ABDOMEN: Soft, nontender. No hepatosplenomegaly, normal bowel sounds, no guarding or rigidity. EXTREMITIES: No clubbing, no edema, no cyanosis, 2+ pulses and upper and lower extremities. MUSCULOSKELETAL: Muscle strength and tone normal. SPINE: No scoliosis or deformity SKIN: No rashes CENTRAL NERVOUS SYSTEM: No focal deficits, tone is normal in all 4 extremities. PSYCHIATRIC: Alert and oriented -3. Appropriate affect. Intact judgment and insight. - Labs CBC & Chem 7: 08/16/19 09:30 08/16/19 09:30 Labs: Abnormal Lab Results - Last 24 Hours (Table) 08/19/19 08/19/19 08/20/19 Range/Units 16:47 20:03 06:16 POC Glucose (mg/dL) 185 H 223 H 175 H (75-99) mg/dL 08/20/19 Range/Units 12:14 POC Glucose (mg/dL) 223 H (75-99) mg/dL Assessment and Plan Assessment: Assessment: #1. Acute dyspnea likely related to acute exacerbation of chronic obstructive pulmonary disease #2. Elevated d-dimer, rule out thromboembolic disease #3. Chest pain, troponins were negative 2, EKG without acute ischemic changes #4. 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 Chronic and ongoing nicotine dependence, 2 packs per day for 70 years #6. Recent weight loss 25 pounds in the last 6 months #7. Severe peripheral vascular disease #8. Hypertension #9. Hyperlipidemia Plan: The patient was seen and evaluated by Dr. Mera. He is cleared for discharge from the pulmonary standpoint. Continue bronchodilators. Continue Symbicort. Complete prednisone burst and taper starting at 40 mg daily for 4 days. Complete course of antibiotics. He did desaturate to 84% according to staff on room air. Back up into the 90s on 2 L/m per nasal cannula. He will require home oxygen. He is educated again regarding the importance of complete smoking cessation. NicoDerm patch is in place. He would benefit from a follow-up in our office 1-2 weeks post discharge. We'll perform full pulmonary function testing and make further recommendations regarding maintenance medications. He is encouraged to call sooner with any recurrence of symptoms or other questions or concerns. I, the cosigning physician, performed a history & physical examination of the patient. Lungs sounds with bilateral end expiratory wheeze, diminished. Maintaining good O2 saturations in the 90s on 2 L/m per nasal cannula. I discussed the assessment and plan of care with my nurse practitioner, Farhana Matthews. I attest to the above note as dictated by her.
--- NOTE | 2019-08-20 14:19 | P.DS ---
Providers Date of admission: 08/18/19 11:30 Expected date of discharge: 08/20/19 Attending physician: Kelsey Vega Consults: 08/16/19 14:58 Consult Physician Routine Consulting Provider: Dayday Longo Consult Reason/Comments: COPD with exacerbation Do you want consulting provider notified?: Yes 08/17/19 09:09 Consult Physician Routine Consulting Provider: Monisha Golden Consult Reason/Comments: chest pain Do you want consulting provider notified?: Yes Primary care physician: Carlos Mireles [facility] Course: This is an 79-year-old male patient of Dr. Carlos Mireles with past medical history of severe peripheral vascular disease treated at [facility], COPD, hyperlipidemia. Patient presented complaining of achy-type midsternal chest pain onset while he was watching TV. He states he has never had this type of pain before. He denies any nausea. No dizziness or lightheadedness. No sweats. Patient states his legs do get tired when he ambulates. Patient is noted to have right hand and mouth tremors which he states of been chronic. No new onset of tremors. Patient presented to [facility] emergency center for evaluation. EKG was a sinus arrhythmia. WBC 14.2, hemoglobin 13.7, BUN 21 creatinine 0.75, potassium 5.2. Initial blood sugar 125. Troponins negative on 2 draws. Chest x-ray shows COPD. Mild interstitial prominence may represent chronic lung disease. No prior exam for comparison. Patient was admitted to the cardiac stepdown unit and consult requested with holding medicine and cardiology. Subsequently d-dimer was elevated 1.[address] of the chest will be ordered. 08/18: Patient continues to still have difficulty breathing and lungs are tight with wheezing. No change in medications will be made. He denies having any chest pain. IV fluids will be changed to saline lock. Echocardiogram revealed EF of 55-60%, mild to moderate mitral regurgitation, mild tricuspid regurgitation, mild pulmonary hypertension. Patient was seen in consultation by cardiology. CTA of the chest was negative for pulmonary embolus. Moderate changes of emphysema. Degenerative changes in spine. Patient voices frustrati on with a heart healthy diet. Patient's diet will be changed to regular and Ensure added. 08/19: Patient has been afebrile, heart rate 60, blood pressure 121/67, pulse ox 90% on 3 L nasal cannula. Blood sugars running between 139 and 228. Patient has been seen by cardiology and pulmonary medicine. He denies having any chest pain. Breathing is improved from yesterday. We will plan to decrease IV steroids to 40 mg every 8 hours with plan for probable discharge on Sunday or . It appears patient most likely will require home oxygen. 08/20: Patient states that his breathing is much improved today. He still has some mild muscle wheezing but lung sounds are much improved. His pulse ox is at 88% on room air at rest and on 85% with ambulation. Patient will be set up for home oxygen need as well as a nebulizer will be ordered and a walker. He has been afebrile, heart rate 58, blood pressure 146/62, pulse ox 95% on 2 L nasal cannula. Blood sugars running 175-223 secondary to steroids. Patient will be discharged home today in stable condition. Discharge diagnoses: 1. Acute chest pain. Acute coronary syndrome ruled out. Chest pain secondary to COPD and cough. 2. Acute exacerbation of COPD. 3. Severe peripheral vascular disease. 4. Hypertension. 5. Tobacco use and dependence. 6. Moderate protein calorie malnutrition. 7. Chronic hypoxic respiratory failure requiring home oxygen. 8. Hyperglycemia secondary to steroids Discharge plan: home. Patient refused home care. Home oxygen, nebulizer and walker arranged for home. Impression and plan of care have been directed as dictated by the signing physician. Lexie Montenegro nurse practitioner acting as scribe for signing physician. Patient Condition at Discharge: Good Plan - Discharge Summary Discharge Rx Participant: Yes New Discharge Prescriptions: New Ipratropium-Albuterol Nebulize [Duoneb 0.5 mg-3 mg/3 ml Soln] 3 ml INHALATION RT-QID #120 ampul.neb Nicotine 21Mg/24Hr Patch [Habitrol] 1 patch TRANSDERM DAILY #30 patch predniSONE 0 mg PO DIRECTED #30 tab Pantoprazole [Protonix] 40 mg PO AC-BRKFST #30 tablet. Budesonide-Formot 160-4.5 Mcg [Symbicort 160-4.5 Mcg Inhaler] 2 puff INHALATION RT-BID #1 inhaler Azithromycin [Zithromax] 500 mg PO DAILY #5 tab Continue Nadolol 40 mg PO DAILY Atorvastatin [Lipitor] 20 mg PO HS Clopidogrel [Plavix] 75 mg PO DAILY Discharge Medication List Atorvastatin [Lipitor] 20 mg PO HS 08/16/19 [History] Clopidogrel [Plavix] 75 mg PO DAILY 08/16/19 [History] Nadolol 40 mg PO DAILY 08/16/19 [History] Azithromycin [Zithromax] 500 mg PO DAILY #5 tab 08/20/19 [Rx] Budesonide-Formot 160-4.5 Mcg [Symbicort 160-4.5 Mcg Inhaler] 2 puff INHALATION RT-BID #1 inhaler 08/20/19 [Rx] Ipratropium-Albuterol Nebulize [Duoneb 0.5 mg-3 mg/3 ml Soln] 3 ml INHALATION RT-QID #120 ampul.neb 08/20/19 [Rx] Nicotine 21Mg/24Hr Patch [Habitrol] 1 patch TRANSDERM DAILY #30 patch 08/20/19 [Rx] Pantoprazole [Protonix] 40 mg PO AC-BRKFST #30 tablet. 08/20/19 [Rx] predniSONE 0 mg PO DIRECTED #30 tab 08/20/19 [Rx] Follow up Appointment(s)/Referral(s): Richie Rueda MD [STAFF PHYSICIAN] - 09/02/19 10:45 am (Sunday with CLERK SUPERVISOR) [facility] [NON-STAFF] - As Needed Farhana Matthews NPC [Nurse Practitioner] - 09/04/19 3:15 pm () Carlos Mireles MD [Primary Care Provider] - 08/26/19 1:45 pm (Sunday) Patient Instructions/Handouts: How to Stop Smoking (DC), COPD (Chronic Obstructive Pulmonary Disease) (DC) Discharge Disposition: HOME SELF-CARE
== END 2019-08-20 14:23 | disposition home or self-care (01) | DRG 191 ==
LOC: EC 09:16 → 3SCARD 15:10 → OBSVTOIN 08-18 11:30 → 3SCARD 08-19 22:45
PROVIDERS: ADMIT Internal Medicine; ATTEND Internal Medicine
DX: J43.9 Emphysema, unspecified (principal); E44.0 Moderate protein-calorie malnutrition; Z68.1 Body mass index [BMI] 19.9 or less, adult; J96.11 Chronic respiratory failure with hypoxia; J96.12 Chronic respiratory failure with hypercapnia; E78.5 Hyperlipidemia, unspecified; F17.290 Nicotine dependence, other tobacco product, uncomplicated; I08.1 Rheumatic disorders of both mitral and tricuspid valves; I10 Essential (primary) hypertension; I27.20 Pulmonary hypertension, unspecified; R25.1 Tremor, unspecified; R73.9 Hyperglycemia, unspecified; T38.0X5A Adverse effect of glucocorticoids and synthetic analogues, initial encounter; R79.1 Abnormal coagulation profile; Z79.02 Long term (current) use of antithrombotics/antiplatelets; Z79.899 Other long term (current) drug therapy; Z99.81 Dependence on supplemental oxygen; R63.4 Abnormal weight loss; I73.9 Peripheral vascular disease, unspecified; Z81.1 Family history of alcohol abuse and dependence; Z82.3 Family history of stroke
CPT/HCPCS: 36415; 71046; 71275; 80053; 82550; 83735; 83880; 84484; 85025; 85379; 85610; 85730; 93005; 93306; 94640; 94760; 96361; 96374; 96375; 99285; 99406

== ENCOUNTER 2020-11-14 10:54 | Emergency (ER) | payer MEDICARE, OTHER ==
[2020-11-14] MEDS ORDERED: RX INFO: IV CONTRAST WAS GIVEN 1 EACH MISC MISCELLANE PRN (11:33)
[2020-11-14 12:00] LABS: Basophils # (A) 0.1 k/uL (0-0.2); Basophils % (A) 1 %; Eosinophils # (A) 0.6 k/uL (0-0.7); Eosinophils % (A) 6 %; HCT 43.8 % (39.0-53.0); HGB 14.1 gm/dL (13.0-17.5); Lymphocytes % (A) 31 %; MCH 30.7 pg (25.0-35.0); MCHC 32.3 g/dL (31.0-37.0); MCV 95.1 fL (80.0-100.0); Mean Platelet Volume 6.9; Monocytes # (A) 0.7 k/uL (0-1.0); Monocytes % (A) 7 %; Neutrophils # (A) 5.2 k/uL (1.3-7.7); Neutrophils % (A) 53 %; Platelet Count 299 k/uL (150-450); RDW 14.5 % (11.5-15.5); WBC 9.8 k/uL (3.8-10.6)
[2020-11-14 12:14] LABS: African American GFR (CKD) >90 (>60 ml/min/1.73 sqM); Anion Gap 7 mmol/L; Blood Urea Nitrogen 23 mg/dL (9-20); Calcium 9.1 mg/dL (8.4-10.2); Carbon Dioxide 29 mmol/L (22-30); Chloride 104 mmol/L (98-107); Glucose 93 mg/dL (74-99); Non-African American GFR(CKD) 87 (>60 ml/min/1.73 sqM); Potassium 5.3 mmol/L (3.5-5.1); Sodium 140 mmol/L (137-145)
--- NOTE | 2020-11-14 12:27 | ED ---
Lower Extremity Injury HPI - General Chief Complaint: Extremity Injury, Lower Stated Complaint: Riht Knee Pain Time Seen by Provider: 11/14/20 10:59 Source: patient Mode of arrival: ambulatory Limitations: no limitations - History of Present Illness Initial Comments: 80-year-old male with history of oxygen dependent COPD, peripheral artery disease presents to the emergency department with a chief complaint of right knee pain. Patient reports the pain started at 3 AM and woke him out of his sleep. Patient reports the pain is exacerbated with ambulation and weightbearing. Patient reports she is not able to stand for long periods of time. He denies any injury. He states he feels like the right leg is colder than the other one. He does have history of angioplasty. He denies any ecchymosis on the right lower extremity. - Related Data Home Medications Medication Instructions Recorded Confirmed Atorvastatin [Lipitor] 20 mg PO DAILY 08/16/19 11/14/20 Nadolol 40 mg PO BID 08/16/19 11/14/20 Allergies Allergy/AdvReac Type Severity Reaction Status Date / Time No Known Allergies Allergy Verified 11/14/20 12:16 Review of Systems ROS Statement: Those systems with pertinent positive or pertinent negative responses have been documented in the HPI. ROS Other: All systems not noted in ROS Statement are negative. Past Medical History Past Medical History: COPD, Hyperlipidemia, Hypertension Additional Past Medical History / Comment(s): Peripheral vascular disease History of Any Multi-Drug Resistant Organisms: None Reported Past Surgical History: No Surgical Hx Reported Additional Past Surgical History / Comment(s): Fem-fem bypass at [facility] Past Anesthesia/Blood Transfusion Reactions: No Reported Reaction Past Psychological History: No Psychological Hx Reported Smoking Status: Current every day smoker Past Alcohol Use History: None Reported Past Drug Use History: None Reported - Past Family History Father History Unknown: Yes Additional Family Medical History / Comment(s): Father at age 93 from old age. Mother Family Medical History: CVA/TIA Additional Family Medical History / Comment(s): Mother in her 70s. Unknown cause. Sister(s) Additional Family Medical History / Comment(s): Patient has 4 sisters and 2 from motor vehicle accident. Patient has one son that suffers from alcohol abuse. Patient has 2 daughters and one has from a brain aneurysm. General Exam Limitations: no limitations General appearance: alert, in no apparent distress Head exam: Present: atraumatic, normocephalic, normal inspection Eye exam: Present: normal appearance, PERRL, EOMI Pupils: Present: normal accommodation ENT exam: Present: normal exam, normal oropharynx, mucous membranes moist Neck exam: Present: normal inspection, full ROM. Absent: tenderness Respiratory exam: Present: normal lung sounds bilaterally. Absent: respiratory distress Cardiovascular Exam: Present: regular rate, normal rhythm, normal heart sounds Extremities exam: Present: normal inspection, full ROM (Full range of motion in the right knee), tenderness (Mild tenderness to the lateral aspect of her right knee), normal capillary refill, other (Unable to detect pulses in the right lower extremity even with a Doppler ultrasound.). Absent: pedal edema, joint swelling, calf tenderness Back exam: Present: normal inspection, full ROM Neurological exam: Present: alert, oriented X3 Psychiatric exam: Present: normal affect, normal mood Skin exam: Present: warm, dry, intact, normal color Course Vital Signs 11/14/20 11:01 Temperature 98.1 F Pulse Rate 68 Respiratory 20 Rate Blood Pressure 173/73 O2 Sat by Pulse 97 Oximetry Medical Decision Making - Medical Decision Making 80-year-old male was is to emergency department with a chief complaint of right knee pain. On physical examination, patient does have slight temperature difference right versus left lower extremity. Not able to detect DP and PT them with a Doppler ultrasound. CBC and BMP unremarkable. CTA of the right lower extremity reveals an occlusion at the right iliac stent. We spoke with our vascular team who suggested patient be transferred. Patient had a stent placed about 4-5 years ago by at [facility]. I spoke with Dr Donald who accepted the patient for transfer. Patient is acceptable of transfer. covid Pending. Case discussed with my attending Dr. Osorio. - Lab Data Result diagrams: 11/14/20 11:51 11/14/20 11:51 Lab Results 11/14/20 11/14/20 11/14/20 Range/Units 11:51 11:51 14:33 WBC 9.8 (3.8-10.6) k/uL RBC 4.60 (4.30-5.90) m/uL Hgb 14.1 (13.0-17.5) gm/dL Hct 43.8 (39.0-53.0) % MCV 95.1 (80.0-100.0) fL MCH 30.7 (25.0-35.0) pg MCHC 32.3 (31.0-37.0) g/dL RDW 14.5 (11.5-15.5) % Plt Count 299 (150-450) k/uL MPV 6.9 Neutrophils % 53 % Lymphocytes % 31 % Monocytes % 7 % Eosinophils % 6 % Basophils % 1 % Neutrophils # 5.2 (1.3-7.7) k/uL Lymphocytes # 3.0 (1.0-4.8) k/uL Monocytes # 0.7 (0-1.0) k/uL Eosinophils # 0.6 (0-0.7) k/uL Basophils # 0.1 (0-0.2) k/uL Sodium 140 (137-145) mmol/L Potassium 5.3 H (3.5-5.1) mmol/L Chloride 104 (98-107) mmol/L Carbon Dioxide 29 (22-30) mmol/L Anion Gap 7 mmol/L BUN 23 H (9-20) mg/dL Creatinine 0.72 (0.66-1.25) mg/dL Est GFR (CKD-EPI)AfAm >90 (>60 ml/min/1.73 sqM) Est GFR (CKD-EPI)NonAf 87 (>60 ml/min/1.73 sqM) Glucose 93 (74-99) mg/dL Plasma Lactic Acid Landen 1.2 (0.7-2.0) mmol/L Calcium 9.1 (8.4-10.2) mg/dL Disposition 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 Specs Out of Hospital Transfer - Requested Specifics: Other Emergency Center ([facility])
--- NOTE | 2020-11-14 13:33 | CT ---
CT angiogram of the right leg HISTORY: Limb ischemia, cold leg, no pulse Helical acquisition obtained through the lower extremities following dynamic administration of 100 cc Isovue-370 IV. Three-dimensional reconstructions performed on an alternate workstation. Automated ex posure control for dose reduction, DLP 676.7 mGycentimeters No comparisons Abdominal aorta shows atheromatous change and is patent, at the origin of the right common iliac jean pierre ry there is no enhancement, no enhancement seen to the level of the deep femoral artery branches on t he right. External iliac and common femoral artery on the right are occluded, superficial femoral art jocelynn on the right are occluded. There is reconstitution of the superficial femoral artery distal to it s origin which is diminutive in size. Popliteal arteries are patent, the anterior tibial artery is pa tent peripherally at least to the distal leg, peroneal and posterior tibial arteries are not seen to enhance proximally, there may be some segmental reconstitution of the peroneal artery on the right pr oximally. The left common iliac, internal and external iliac, common femoral, deep and superficial fe moral arteries enhance. There is extensive atheromatous change, segmental occlusion of the superficia l femoral artery on the left likely at Gerson's canal with reconstitution of the popliteal artery scotty triston high-grade stenosis is present. The tibioperoneal trunk, anterior tibial arteries enhance, perone al artery also show some enhancement, there is poor enhancement of the posterior tibial artery distal to its origin. Anterior tibial artery also shows poor enhancement distal to the mid leg, peroneal ar fransisco also shows poor enhancement distally. Stent placement is present throughout the distribution of the right iliac system as well as left exte rnal iliac artery. The left common iliac artery shows stenosis at its midportion, suspect there is a stent present and stenosis is present distal to the stent. Femoral femoral bypass graft appears blind -ending right of midline and does not enhance. IMPRESSION: Occlusion of patient's right iliac stents, extensive peripheral vascular occlusive diseas e as described
[2020-11-14 16:20] LABS: Prothrombin Time 10.3 sec (9.0-12.0)
[2020-11-14 16:22] LABS: Partial Thromboplastin Time 19.6 sec (22.0-30.0)
[2020-11-14 16:58] VITALS: BP 143/63; PULSE 55; RESP 17; TEMP 97.7
== END 2020-11-14 17:03 | disposition other institution (70) ==
LOC: EC 10:54
DX: I74.5 Embolism and thrombosis of iliac artery (principal); I73.9 Peripheral vascular disease, unspecified; J44.9 Chronic obstructive pulmonary disease, unspecified; E78.5 Hyperlipidemia, unspecified; I10 Essential (primary) hypertension; F17.200 Nicotine dependence, unspecified, uncomplicated; Z99.81 Dependence on supplemental oxygen
CPT/HCPCS: 36415; 86900; 86901; 80048; 83605; 85025; 85610; 85730; 86850; 87635; 73706; 99284; Q9967

== ENCOUNTER 2021-11-07 18:52 | Inpatient (IN) | payer MEDICARE, OTHER ==
[2021-11-07] MEDS ORDERED: SODIUM CHLORIDE 0.9% 1,000 ML IV ONE (20:04)
[2021-11-07 20:35] LABS: Anisocytosis Slight; Basophils % (A) 0 %; Eosinophils # (A) 0.2 k/uL (0-0.7); Eosinophils % (A) 2 %; HCT 44.9 % (39.0-53.0); Hypochromasia Slight; Lymphocytes # (A) 1.3 k/uL (1.0-4.8); Lymphocytes % (A) 20 %; MCH 28.9 pg (25.0-35.0); MCHC 31.2 g/dL (31.0-37.0); MCV 92.8 fL (80.0-100.0); Mean Platelet Volume 7.7; Monocytes # (A) 0.4 k/uL (0-1.0); Monocytes % (A) 6 %; Neutrophils # (A) 4.7 k/uL (1.3-7.7); Neutrophils % (A) 69 %; Platelet Count 287 k/uL (150-450); RBC 4.84 m/uL (4.30-5.90); RDW 17.2 % (11.5-15.5); WBC 6.8 k/uL (3.8-10.6)
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
[2021-11-07 20:51] LABS: ALT 15 U/L (4-49); AST 25 U/L (17-59); Acetaminophen <10.0 ug/mL; African American GFR (CKD) 33 (>60 ml/min/1.73 sqM); Alcohol <10 mg/dL; Alkaline Phosphatase 73 U/L (38-126); Anion Gap 12 mmol/L; Blood Urea Nitrogen 50 mg/dL (9-20); Calcium 8.6 mg/dL (8.4-10.2); Carbon Dioxide 23 mmol/L (22-30); Chloride 102 mmol/L (98-107); Glucose 152 mg/dL (74-99); Non-African American GFR(CKD) 28 (>60 ml/min/1.73 sqM); Potassium 4.3 mmol/L (3.5-5.1); Salicylate <1.0 mg/dL; Sodium 137 mmol/L (137-145); Total Bilirubin 0.4 mg/dL (0.2-1.3); Total Protein 7.3 g/dL (6.3-8.2)
[2021-11-07 20:58] LABS: INR 0.9 (<1.2); Prothrombin Time 9.9 sec (9.0-12.0)
--- NOTE | 2021-11-07 21:07 | XR ---
EXAMINATION TYPE: XR chest 2V DATE OF EXAM: 11/07/2021 COMPARISON: 08/16/2019 HISTORY: Chest pain TECHNIQUE: FINDINGS: There is no heart failure nor confluent pneumonic infiltrate. Costophrenic angles are clear . There are no hilar masses. Thoracic aorta is atheromatous. There is no pleural effusion. IMPRESSION: No active cardiopulmonary disease. No change
--- NOTE | 2021-11-07 21:42 | CT ---
EXAMINATION TYPE: CT brain cspine wo con DATE OF EXAM: 11/07/2021 COMPARISON: CT scan cervical spine 06/25/2015 HISTORY: Pain CT DLP: mGycm Automated exposure control for dose reduction was used. Images of the brain and cervical spine obtained without contrast. There is cerebral cortical atrophy. There is 3.5 cm area of hypodensity in the mckeon and white matter of left parietal lobe consistent with an old infarct. There is no mass effect or midline shift. There is no sign of intracranial hemorrhage. There is 8 mm hypodensities in the left thalamus consistent w ith old lacunar infarcts. The calvarium is intact. The skull base is intact. There is normal aeration of the mastoid sinuses. The cervical vertebra show fairly normal alignment. There is no compression fracture. There is some d egenerative disc space narrowing at C5-6 and C6-7 with spurring of the endplates. Facet joints are in tact. Prevertebral soft tissues are intact. IMPRESSION: Spondylotic changes in the lower cervical spine. No fracture. There is slight progression of the spur formation compared to old exam. Cerebral atrophy. 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 No acute intracranial abnormality.
[2021-11-07] MEDS ORDERED: NALOXONE 0.4 MG/ML 1 ML VIAL IV PRN (23:37)
[2021-11-08 00:04] LABS: Appearance,Urine Clear (Clear); Bilirubin,Urine Negative (Negative); Blood,Urine Negative (Negative); Color,Urine Yellow; Glucose,Urine (UA) Negative (Negative); Ketones,Urine Negative (Negative); Leukocyte Esterase,Urine Negative (Negative); Nitrite,Urine Negative (Negative); Protein,Urine Trace (Negative); Specific Gravity,Urine 1.017 (1.001-1.035); Urobilinogen,Urine <2.0 mg/dL (<2.0)
--- NOTE | 2021-11-08 00:32 | US ---
EXAMINATION TYPE: US renals and bladder DATE OF EXAM: 11/07/2021 COMPARISON: NONE CLINICAL HISTORY: sherita. EXAM MEASUREMENTS: Right Kidney: 10.7 x 3.5 x 4.4 cm Left Kidney: 9.8 x 4.6 x 4.0 cm Limited exam due to patient immobility Right Kidney: No hydronephrosis or masses seen Left Kidney: No hydronephrosis or masses seen; limited visualization due to overlying bowel gas and r ib shadowing. Bladder: Not seen; patient voided just prior to examination Bilateral Jets seen: No IMPRESSION: No evidence of renal mass or obstruction. Urinary bladder was empty during the exam.
[2021-11-08 06:01] LABS: Anisocytosis Slight; Basophils # (A) 0.1 k/uL (0-0.2); Basophils % (A) 1 %; Eosinophils # (A) 0.3 k/uL (0-0.7); Eosinophils % (A) 4 %; HCT 40.9 % (39.0-53.0); HGB 12.8 gm/dL (13.0-17.5); Hypochromasia Slight; Lymphocytes # (A) 2.1 k/uL (1.0-4.8); Lymphocytes % (A) 27 %; MCH 28.9 pg (25.0-35.0); MCHC 31.4 g/dL (31.0-37.0); Mean Platelet Volume 7.5; Monocytes # (A) 0.6 k/uL (0-1.0); Monocytes % (A) 7 %; Neutrophils # (A) 4.7 k/uL (1.3-7.7); Neutrophils % (A) 60 %; Platelet Count 231 k/uL (150-450); RBC 4.44 m/uL (4.30-5.90); RDW 16.6 % (11.5-15.5); WBC 7.8 k/uL (3.8-10.6)
[2021-11-08 06:17] LABS: Calcium 8.3 mg/dL (8.4-10.2); Potassium 4.7 mmol/L (3.5-5.1)
[2021-11-08] MEDS ORDERED: CLOPIDOGREL 75 MG TAB PO STA (12:38)
[2021-11-08] MEDS: ASPIRIN 81 MG PO SCH (13:51)
--- NOTE | 2021-11-08 13:56 | US ---
EXAMINATION TYPE: US carotid duplex BILAT DATE OF EXAM: 11/08/2021 COMPARISON: NONE CLINICAL HISTORY: cva. cva EXAM MEASUREMENTS: RIGHT: Peak Systolic Velocity (PSV) cm/sec ----- Right CCA: 91.5 ----- Right ICA: 87.1 ----- Right ECA: 107.5 ICA/CCA ratio: 1.0 RIGHT: End Diastole cm/sec ----- Right CCA: 17.3 ----- Right ICA: 18.8 ----- Right ECA: 0 LEFT: Peak Systolic Velocity (PSV) cm/sec ----- Left CCA: 67.1 ----- Left ICA: 76.9 ----- Left ECA: 82.7 ICA/CCA ratio: 0.9 LEFT: End Diastole cm/sec ----- Left CCA: 15.8 ----- Left ICA: 12.9 ----- Left ECA: 8.9 VERTEBRALS (direction of flow): Right Vertebral: Antegrade Left Vertebral: Antegrade Rhythm: Normal No significant stenosis seen Moderate hyperechoic plaque right carotid bulb extending into the external carotid artery. Moderate t o severe peripheral plaque left carotid bulb. Blastic measurements and ratios remain within normal li mits bilaterally. IMPRESSION: Moderate to severe atherosclerotic changes bilaterally without hemodynamically signifi cant stenosis clearly seen in either internal carotid artery. Criteria for Assigning % of Stenosis / Diameter reduction (Estimation based on the indirect measurements of the internal carotid artery velocities (ICA PSV). 1. Normal (no stenosis)=ICA PSV < 125 cm/s: ratio < 2.0: ICA EDV<40 cm/s. 2. Less than 50% stenosis=ICA PSV < 125 cm/s: ratio < 2.0: ICA EDV<40 cm/s. 3. 50 to 69% stenosis=ICA PSV of 125 to 230 cm/s: ration 2.0 ? 4.0: ICA EDV 40-100 cm/s. 4. Greater than 70% stenosis to near occlusion= ICA PSV > 230 cm/s: ratio > 4.0: ICA EDV > 100 cm/s. 5. Near occlusion= ICA PSV velocities may be low or undetectable: variable ratio and ICA EDV. 6. Total occlusion=unable to detect flow.
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
[2021-11-08] MEDS: ATORVASTATIN 40 MG TAB PO SCH (20:40)
[2021-11-09 00:43] LABS: Chol/HDL Ratio 5.35 Ratio
[2021-11-09] MEDS: ASPIRIN 81 MG PO SCH (07:40)
[2021-11-09] MEDS: CLOPIDOGREL 75 MG TAB PO SCH (07:40)
--- NOTE | 2021-11-09 10:00 | ECHOF ---
Referral Reason:LVF MEASUREMENTS -------- HEIGHT: 152.4 cm WEIGHT: 45.4 kg BP: RVIDd: 2.2 cm (< 3.3) IVSd: 0.9 cm (0.6 - 1.1) LVIDd: 4.2 cm (3.9 - 5.3) LVPWd: 1.0 cm (0.6 - 1.1) IVSs: 1.2 cm LVIDs: 2.6 cm LVPWs: 1.4 cm LA Diam: 3.0 cm (2.7 - 3.8) MV EXCURSION: 13.550 mm (> 18.000) MV EF SLOPE: 72 mm/s (70 - 150) EPSS: 0.3 cm MV E Juan A: 0.45 m/s MV DecT: 174 ms MV A Juan A: 0.69 m/s MV E/A Ratio: 0.65 RAP: 5.00 mmHg RVSP: 29.62 mmHg FINDINGS -------- Sinus rhythm. This was a technically adequate study. LV size, wall thickness and systolic function are normal, with an EF greater than 55%. The left maksim tricular size is normal. The right ventricle is normal in size. The left atrial size is normal. The right atrial size is normal. There is mild aortic valve sclerosis. There is no evidence of aortic regurgitation. Mild mitral regurgitation is present. The tricuspid valve appears structurally normal. No regurgitation noted There is no pulmonic regurgitation present. There is no pericardial effusion. CONCLUSIONS -------- 1. LV size, wall thickness and systolic function are normal, with an EF greater than 55%. 2. The left ventricular size is normal. 3. The right ventricle is normal in size. 4. The left atrial size is normal. 5. The right atrial size is normal. 6. There is mild aortic valve sclerosis. 7. Mild mitral regurgitation is present. 8. The tricuspid valve appears structurally normal. 9. There is no pulmonic regurgitation present. 10. There is no pericardial effusion. TICKET PRINTER AND TAGGER: Yancy Leija RDCS
--- NOTE | 2021-11-09 12:14 | P.PN ---
Subjective Progress Note Date: 11/09/21 The patient is seen at bedside and he feels from neurologically he is doing well. He denies of any neurological problems. Per nurse no seizure-like activity noted. Objective - Vital Signs Vital signs: Vital Signs Temp 97.5 F L 11/09/21 11:56 Pulse 53 L 11/09/21 11:56 Resp 16 11/09/21 11:56 BP 134/72 11/09/21 11:56 Pulse Ox 100 11/09/21 11:56 Intake & Output 11/08/21 11/09/21 11/09/21 18:59 06:59 18:59 Output Total 800 Balance -800 Weight 45.359 kg Output: Urine 800 Other: Voiding Method Urinal Urinal - Exam GENERAL: The patient is lying in bed and appers uncared for (long nails and seem discolored) and somewhat cachectic. Patient is in no acute distress. NEUROLOGICAL: Higher mental function: The patient is awake, alert, oriented to self, place and time. Patient is following commands. No aphasia and no neglect. Cranial nerves: The pupils are round, equal and reactive to light and accommodation. Visual vazquez are full to confrontation throughout. Extraocular movement is intact no nystagmus is noted. Facial sensation is normal to touch throughout. The facial strength is normal throughout. Hearing is very hard of hearing bilaterally to hand rub. Tongue is midline and moved [id number] without any difficulty. No dysarthria is noted. Shoulder shrug is normal bilaterally. Motor: Gait is deferred. The strength is lifting all extremities above gravity and no focality noted. Appears seems decreased bulk throughout. Normal tone. Cerebellum: Normal finger to nose bilaterally. Sensation: Sensation is normal to touch throughout. Reflexes (right/left): 1+ throughout. Plantars are downgoing bilaterally. WORK-UP: Urine analysis is negative for urinary tract infection. Urine drug screen is sessile it's less than 1.0, serum within less than 10.0, serum alcohol was less than 10 Lipid panel triglycerides 185, cholesterol is 2:30, LDL is 158, HDL is 43. Serum folate 7.80 Vitamin B12 is a 50 TSH is the 2.[address] is 5.8. [address] of the head is reported as cerebral atrophy. Old left parietal infarct and lacunar infarct in the left thalamus and left internal capsule. No acute intracranial abnormality. It seems that the comparison to this current CT was in 2015. I personally reviewed the CT of the head and I agree that the patient has old stroke over the left frontal parietal region, patient has lacunar infarct in the left basal ganglia and left thalamus. I do not appreciate any acute subacute ischemic stroke or any interpretable hemorrhage. There is no prior CT of head in the system for me to review. CT cervical spine is a reported as spondylitic changes in the lower cervical spine. There are no fracture. There is slight progression of the aspirin form ation compared to old exam. And is reported in the body report there is some degenerative disc space narrowing at C5-C6 C6-C7 with spurring of the endplate. Carotid duplex is reported as moderate to severe at this chronic changes bilaterally without hemodynamically significant stenosis clearly seen in either internal carotid artery. 2-D echo was reported as limbic O size is normal. Ejection fraction 55% and greater. Left atrial size is normal. - Labs CBC & Chem 7: 11/08/21 05:41 11/08/21 05:41 Labs: Abnormal Lab Results - Last 24 Hours (Table) 11/08/21 Range/Units 15:46 Triglycerides 185.00 H (0.00-149.00) mg/dL Cholesterol 230.00 H (0.00-200.00) mg/dL LDL Cholesterol, Calc 150.0 H (0.0-131.0) mg/dL Assessment and Plan Assessment: Encephalopathy of unknown etiology. Patient has been having lack of appetite and eating recently and as a result he has acute kidney injury. Cannot rule out seizure since daughter found him down (history of stroke can increase risk of seizure). 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 If negative for acute or subacute stroke (on MRI Brain) recommend only ASA 81mg daily from neurological perspective. Continue Lipitor 40 mg daily at bedtime Pending routine EEG. I will not start the patient on antiepileptic drug unless there is epileptiform discharges or seizure on the EEG. Pending MRI the brain w/o Primary team consulted cardiology for a JOSIE for multiple strokes. From a neurologic perspective JOSIE is not needed as inpatient and can be considered as outpatient. Patient had left basal ganglia stroke which is due to patient's small vessel disease which includes hypertension age. Left parietal frontal ischemic stroke seems more due to embolic. Continue neuro checks PT and OT is consulted We'll defer the rest of the medical management to primary team Since the patient's son is having difficulty taking care of him recommend placement and we'll defer that to the social service director/primary team. Patient was counseled on tobacco cessation. Upon discharge recommend the patient follow-up with a neurologist as an outpatient. The plan is discussed with the patient's nurse. Star Mera M.D. Neuro-hospitalist Time with Patient: Less than 30
--- NOTE | 2021-11-09 14:08 | EEG ---
ELECTROENCEPHALOGRAM REPORT DATE OF SERVICE: 11/09/2021. CLINICAL HISTORY: This is an 81-year-old gentleman who has a history of stroke and presented to the hospital because of altered mental status. The video EEG is obtained to evaluate for seizure epileptiform activity. RELEVANT MEDICATION: The patient is not on any antiepileptic drugs. EEG TYPE: A routine 21-channel EEG is performed with video using the 10/20 electrode placement system. DESCRIPTION: Wakefulness and drowsiness are obtained. During wakefulness, the posterior- dominant rhythm consists of low to moderate voltage, well modulated, well sustained of 7.5 to 8 hertz activity. There is no physiological stage 2 sleep architecture. There is no focal slowing. Interictal and ictal is none. ACTIVATION PROCEDURE: Photic stimulation did not evoke a posterior driving response. There is no abnormality during photic stimulation. Hyperventilation was not performed. CLINICAL INTERPRETATION: This is a normal routine EEG. There is no focal slowing, epileptiform discharges or seizure on the EEG. Clinical correlation is recommended. LATESHA / NIRALI: [id number] / BREANN
[2021-11-09] MEDS ORDERED: IPRATROPIUM-ALBUTEROL 3 ML NEB INHALATION PRN (14:42)
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
--- NOTE | 2021-11-09 15:52 | MR ---
MR brain without contrast HISTORY: Altered mental status, encephalopathy, stroke Multiplanar multisequence imaging obtained through the brain without contrast Correlation to CT brain 10/30/2021 There is a focus of hyperintensity seen on inversion recovery sequences in the periventricular white matter with corresponding hyperintensity on inversion recovery T2-weighted sequences, vague hypoatten uation on brain CT, on axial image 20 of series 305 ADC map there is a question of some crescentic lo w signal suggesting the possibility of small area of subacute infarct at the periphery of what is lik david a chronic infarct. Cortical atrophy is again noted. Fast brain protocol was utilized due to patient's debility. The corpus callosum, pituitary, cervical medullary junction are within normal limits. There is confluent and scattered hyperintensity within t he periventricular, pericallosal and subcortical white matter greater in the left frontoparietal albaro on. There is no hemorrhage or hydrocephalus. Cerebellopontine angles are unremarkable, orbits are sym metric. Mild mucosal disease present in the ethmoid air cells. Lacunar infarct present within the reg ion of the thalamus and posterior limb of the internal capsule. There are expected vascular flow void s. IMPRESSION: Difficult to exclude a component of subacute on chronic small vessel ischemic changes as described, findings of questionable acuity. Mild sinus disease.
[2021-11-09] MEDS: ATORVASTATIN 40 MG TAB PO SCH (19:53)
[2021-11-09] MEDS: SYMBICORT 160-4.5 MCG INHALER INHALATION SCH (20:19)
[2021-11-10 04:24] VITALS: RESP 16
[2021-11-10] MEDS: SYMBICORT 160-4.5 MCG INHALER INHALATION SCH (07:21)
[2021-11-10] MEDS: ASPIRIN 81 MG PO SCH (08:41)
[2021-11-10] MEDS: CLOPIDOGREL 75 MG TAB PO SCH (08:41)
[2021-11-10 09:28] LABS: African American GFR (CKD) 42.3 (60.0-200.0); Albumin 3.1 g/dL (3.8-4.9); Albumin/Globulin Ratio 1.35 (1.60-3.17); Anion Gap 9.7 mmol/L (10.00-18.00); BUN/Creat Ratio 20.76 Ratio (12.00-20.00); Blood Urea Nitrogen 35.3 mg/dL (9.0-27.0); Calcium 8.1 mg/dL (8.7-10.3); Carbon Dioxide 24.3 mmol/L (20.0-27.5); Globulin 2.3 g/dL (1.6-3.3); Non-African American GFR(CKD) 36.5 (60.0-200.0); Potassium 4.7 mmol/L (3.5-5.5); Total Bilirubin 0.2 mg/dL (0.30-1.20); Total Protein 5.4 g/dL (6.2-8.2)
--- NOTE | 2021-11-10 11:12 | P.DS ---
Providers Date of admission: 11/07/21 23:38 Expected date of discharge: 11/10/21 Attending physician: Ale Ochoa MD Consults: 11/08/21 12:36 Consult Physician Routine Consulting Provider: Willi Hines Consult Reason/Comments: multiple cvas JOSIE Do you want consulting provider notified?: Yes 11/08/21 12:39 Consult Physician Routine Consulting Provider: Star Mera Consult Reason/Comments: r/o cva, multiple infarcts on CT, MS change Do you want consulting provider notified?: Yes Primary care physician: Carlos Mireles [facility] Course: HISTORY OF PRESENT ILLNESS This is an 81-year-old male patient of Dr. Carlos Mireles with past medical history of COPD, hypertension, hyperlipidemia, peripheral vascular disease, history of fem-fem bypass, tobacco use and dependence. Patient's been brought into the hospital due to confusion. Patient is not had anything to eat or drink in several days and not getting base. Patient possibly has not been taking any home medications. Patient's medication list is no home medications. Patient is very vague and unable to obtain full information from him. He just states that his son is a drunken no longer able to take care of him. He states there is no one else at home to help him. Apparently he last saw Dr. Enoch Mireles one year ago. Patient is obviously not been bathing and is unkempt. Patient presented to [facility] emergency center for evaluation. He was found to be afebrile, heart rate in the 50s, blood pressure 110/58, pulse ox 100% on room air. EKG sinus rhythm with no acute ST changes. CBC is unremarkable. Electrolytes normal. BUN 15 creatinine 2.09. Liver function tests are normal. CK 21, troponin negative. Albumin 4.0. Urinalysis negative for infection. Salicylate acetaminophen and alcohol levels normal. CAT scan of the brain and cervical spine revealed cerebral atrophy. 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 No acute intracranial abnormality. Spondylotic changes in the lower cervical spine. No fracture. Slight progression of the spur formation compared to old exam. Chest x-ray reveals no acute cardiopulmonary disease. Bladder scan was done and patient was straight cath for 400 ML's. Renal ultrasound revealed no evidence of renal mass or obstruction. Patient has been started on IV fluids 0.9 normal saline at 75 mL per hour. Patient is seen today in the emergency center waiting for a bed on the MedSurg floor. Consults added for neurology for mental status change rule out CVA, cardiology due to multiple strokes and JOSIE, patient started on aspirin, Plavix, Lipitor. Carotid ultrasound, echocardiogram and lipid panel ordered. 3/2: Patient has been seen by neurology and advised that JOSIE is not needed as inpatient can be considered as an outpatient and cardiology is also in agreement we'll plan for outpatient follow-up and cancel cardiology consult. EEG has been ordered and no antiepileptic drug has been started and last EEG is showing signs of seizure disorder. MRI of the brain without contrast has been ordered and if negative recommendations are for only aspirin 81 mg daily from neurology as well as continuing the Lipitor. No need at that point for Plavix. Echocardiogram reveals EF of 55% with mild aortic valve sclerosis, mild mitral regurgitation. Carotid ultrasound reveals moderate to severe atherosclerotic changes bilaterally without hemodynamically significant stenosis. Repeat blood work reveals sodium 136, BUN 47 creatinine 1.9. Hemoglobin is 1 2.8. Triglycerides 185, cholesterol 230, LDL 150, HDL 43. TSH 2.08. Homocystine 11.4. Folate 7.8. Vitamin B12 815. PT has evaluated the patient with recommendations for subacute rehab with / are. 3/3: Patient is seen today sitting in a chair and appears to be in no acute distress. He denies any new concerns. Patient has been afebrile, heart rate in the 60s, blood pressure 134/58, pulse ox 100% on 2 L nasal cannula. Repeat blood work today reveals BUN of 35 and creatinine 1.7. Patient is awake alert and oriented 3 and cooperative. No seizure activity has been noted. Neurology is recommended outpatient follow-up with neurologist. Discharge plan is for subacute rehab at [facility]. Patient will be discharged today in stable condition. Patient will be discharged on aspirin 81 mg daily which will be discontinued after 21 days, Plavix will be continued indefinitely. MRI of the brain reads difficult to exclude component of subacute on chronic small vessel ischemic changes. Mild sinus disease. EEG is normal. DISCHARGE DIAGNOSES 1. Metabolic encephalopathy secondary to acute kidney injury 2. Acute kidney injury. 3. 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 History of left basal ganglia stroke due to small vessel disease 5. Hypertension. 6. Hyperlipidemia. 7. Peripheral vascular disease status post fem-fem bypass. 8. COPD, stable without exacerbation. 9. Tobacco use and dependence. 10. Cachexia with moderate protein calorie malnutrition, BMI 18 CODE STATUS: No code DISCHARGE PLAN Subacute rehab at [facility] Greater than 35 minutes was utilized and coordinating patient's discharge. Impression and plan of care have been directed as dictated by the signing physician. Lexie Montenegro nurse practitioner acting as scribe for signing physician. Patient Condition at Discharge: Stable Plan - Discharge Summary New Discharge Prescriptions: New Atorvastatin [Lipitor] 40 mg PO HS tab Clopidogrel [Plavix] 75 mg PO DAILY tab Budesonide-Formot 160-4.5 Mcg [Symbicort 160-4.5 Mcg Inhaler] 2 puff INHALATION RT-BID gm Aspirin 81 mg PO DAILY Ipratropium-Albuterol Nebulize [Duoneb 0.5 mg-3 mg/3 ml Soln] 3 ml INHALATION RT-TID PRN ml PRN Reason: Shortness Of Breath Or Wheezing Discharge Medication List Aspirin 81 mg PO DAILY 11/10/21 [Rx] Atorvastatin [Lipitor] 40 mg PO HS tab 11/10/21 [Rx] Budesonide-Formot 160-4.5 Mcg [Symbicort 160-4.5 Mcg Inhaler] 2 puff INHALATION RT-BID gm 11/10/21 [Rx] Clopidogrel [Plavix] 75 mg PO DAILY tab 11/10/21 [Rx] Ipratropium-Albuterol Nebulize [Duoneb 0.5 mg-3 mg/3 ml Soln] 3 ml INHALATION RT-TID PRN ml 11/10/21 [Rx] Follow up Appointment(s)/Referral(s): Richie Rueda MD [STAFF PHYSICIAN] - 1 Week Jose Juan Jacobson [NON-STAFF] - 1 Week Carlos Mireles MD [Primary Care Provider] - 1 Week (after discharge from rehab) Discharge Disposition: TRANSFER TO SNF/ECF
[2021-11-10 11:47] VITALS: BP 161/62; PULSE 59; TEMP 97.4
--- NOTE | 2021-11-10 12:24 | P.PN ---
Subjective Progress Note Date: 11/10/21 The patient is seen at bedside and he feels he is about the same. Per the same no change in his neurological exam. Objective - Vital Signs Vital signs: Vital Signs Temp 97.4 F L 11/10/21 11:08 Pulse 59 L 11/10/21 11:08 Resp 16 11/10/21 11:08 BP 161/62 11/10/21 11:08 Pulse Ox 99 11/10/21 11:08 Intake & Output 11/09/21 11/10/21 11/10/21 18:59 06:59 18:59 Output Total 330 400 Balance -330 -400 Output: Urine 330 400 Other: Voiding Method Urinal Urinal Urinal - Exam GENERAL: The patient is lying in bed and appers uncared for (long nails and seem discolored) and somewhat cachectic. Patient is in no acute distress. NEUROLOGICAL: Higher mental function: The patient is awake, alert, oriented to self, place and time. Patient is following commands. No aphasia and no neglect. Cranial nerves: The pupils are round, equal and reactive to light and accommodation. Visual vazquez are full to confrontation throughout. Extraocular movement is intact no nystagmus is noted. Facial sensation is normal to touch throughout. The facial strength is normal throughout. Hearing is very hard of hearing bilaterally to hand rub. Tongue is midline and moved [id number] without any difficulty. No dysarthria is noted. Shoulder shrug is normal bilaterally. Motor: Gait is deferred. The strength is lifting all extremities above gravity and no focality noted. Appears seems decreased bulk throughout. Normal tone. Cerebellum: Normal finger to nose bilaterally. Sensation: Sensation is normal to touch throughout. Reflexes (right/left): 1+ throughout. Plantars are downgoing bilaterally. WORK-UP: Urine analysis is negative for urinary tract infection. Urine drug screen is sessile it's less than 1.0, serum within less than 10.0, serum alcohol was less than 10 Lipid panel triglycerides 185, cholesterol is 2:30, LDL is 158, HDL is 43. Serum folate 7.80 Vitamin B12 is a 50 TSH is the 2.[address]c is 5.8. CT of the head is reported as cerebral atrophy. Old left parietal infarct and lacunar infarct in the left thalamus and left internal capsule. No acute intracranial abnormality. It seems that the comparison to this current CT was in 2014. I personally reviewed the CT of the head and I agree that the patient has old stroke over the left frontal parietal region, patient has lacunar infarct in the left basal ganglia and left thalamus. I do not appreciate any acute subacute ischemic stroke or any interpretable hemorrhage. There is no prior CT of head in the system for me to review. CT cervical spine is a reported as spondylitic changes in the lower cervical spine. There are no fracture. There is slight progression of the aspirin formation compared to old exam. And is reported in the body report there is some degenerative disc space narrowing at C5-C6 C6-C7 with spurring of the endplate. MRI of the brain on 11/09/2021 is reported as difficult to exclude a component of subacute on chronic small vessel ischemic change. In the body report and it is reported the patient has focused hyperintensity seen in inversion recovery sequences in the periventricular white matter with corresponding hyperintensity on emerging recovery T2 weighted sequence, vague hypoattenuation on the brain CT I felt the location was mostly the right periventricular white matter and it appears more chronic. Carotid duplex is reported as moderate to severe at this chronic changes bilaterally without hemodynamically significant stenosis clearly seen in either internal carotid artery. 2-D echo was reported as limbic O size is normal. Ejection fraction 55% and greater. Left atrial size is normal. Routine EEG is normal. There is no focal slowing, epileptiform discharges or seizure in the EEG - Labs CBC & Chem 7: 11/08/21 05:41 11/10/21 06:11 Labs: Abnormal Lab Results - Last 24 Hours (Table) 11/10/21 Range/Units 06:11 Anion Gap 9.70 L (10.00-18.00) mmol/L BUN 35.3 H (9.0-27.0) mg/dL Creatinine 1.7 H (0.6-1.5) mg/dL Est GFR (CKD-EPI)AfAm 42.3 L (60.0-200.0) Est GFR (CKD-EPI)NonAf 36.5 L (60.0-200.0) BUN/Creatinine Ratio 20.76 H (12.00-20.00) Ratio Calcium 8.1 L (8.7-10.3) mg/dL Total Bilirubin 0.20 L (0.30-1.20) mg/dL ALT 8 L (10-49) U/L Total Protein 5.4 L (6.2-8.2) g/dL Albumin 3.1 L (3.8-4.9) g/dL Albumin/Globulin Ratio 1.35 L (1.60-3.17) g/dL Assessment and Plan Assessment: Probable subacute to chronic ischemic stroke over right periventricular (on examination no focal deficits). Encephalopathy of unknown etiology. Patient has been having lack of appetite and eating recently and as a result he has acute kidney injury. --he was back to baseline on presentation to hospital History of old left frontal parietal ischemic stroke History of left basal ganglia stroke (seems due to small vessel disease) Dyslipidemia Acute kidney injury--slightly trending down Hypertension and on presentation blood pressure is controlled History of peripheral vascular disease History of COPD Tobacco use (1.5 PPD for years) Plan: MRI of the brain on 11/09/2021 is reported as difficult to exclude a component of subacute on chronic small vessel ischemic change. In the body report and it is reported the patient has focused hyperintensity seen in inversion recovery sequences in the periventricular white matter with corresponding hyperintensity on emerging recovery T2 weighted sequence, vague hypoattenuation on the brain CT I felt the location was mostly the right periventricular white matter and it appears more chronic. Routine EEG is normal. Ppatient is on dual antiplatelets, aspirin 81 mg daily and Plavix 75 mg daily (new during this addmission). Continue dual antiplatelets for 21 days then after that stop Plavix but continue aspirin indefinitelyContinue Lipitor 40 mg daily at bedtime Primary team consulted cardiology for a JOSIE for multiple strokes. From a neurologic perspective JOSIE is not needed as inpatient and can be considered as outpatient. Patient had left basal ganglia stroke which is due to patient's small vessel disease which includes hypertension age. Left parietal frontal ischemic stroke seems more due to embolic. Continue neuro checks PT and OT is consulted We'll defer the rest of the medical management to primary team Since the patient's son is having difficulty taking care of him recommend placement and we'll defer that to the clinical social work aide/primary team. Patient was counseled on tobacco cessation. Upon discharge recommend the patient follow-up with a neurologist as an outpatient within 1-2 weeks as outpatient. The plan is discussed with the patient and his nurse. There is no further neurological work-up. Star Mera M.D. Neuro-hospitalist Time with Patient: Less than 30
== END 2021-11-10 14:57 | DRG 64 ==
LOC: EC 18:52 → 5NMEDONC 23:38
PROVIDERS: ADMIT Internal Medicine; ATTEND Internal Medicine
DX: I63.89 Other cerebral infarction (principal); G93.41 Metabolic encephalopathy; N17.9 Acute kidney failure, unspecified; E44.0 Moderate protein-calorie malnutrition; Z68.1 Body mass index [BMI] 19.9 or less, adult; R64 Cachexia; E78.5 Hyperlipidemia, unspecified; E86.0 Dehydration; F17.210 Nicotine dependence, cigarettes, uncomplicated; H91.90 Unspecified hearing loss, unspecified ear; Z71.6 Tobacco abuse counseling; I10 Essential (primary) hypertension; I73.9 Peripheral vascular disease, unspecified; J44.9 Chronic obstructive pulmonary disease, unspecified; M50.322 Other cervical disc degeneration at C5-C6 level; Z86.73 Personal history of transient ischemic attack (TIA), and cerebral infarction without residual deficits; Z95.828 Presence of other vascular implants and grafts; Z82.3 Family history of stroke
CPT/HCPCS: 36415; 51798; 70450; 70551; 71046; 72125; 76770; 80048; 80053; 80061; 80143; 80179; 80320; 81003; 82140; 82550; 82607; 82746; 83036; 83090; 84443; 84484; 85025; 85610; 85730; 93005; 93306; 93880; 94640; 95816; 96360; 99285

== ENCOUNTER 2022-08-05 15:03 | Inpatient (IN) | payer MEDICARE, OTHER ==
[2022-08-05 15:57] LABS: Basophils # (A) 0.1 k/uL (0-0.2); Basophils % (A) 1 %; Eosinophils # (A) 0.1 k/uL (0-0.7); Eosinophils % (A) 1 %; HCT 42.5 % (39.0-53.0); HGB 13.9 gm/dL (13.0-17.5); Lymphocytes # (A) 1.4 k/uL (1.0-4.8); Lymphocytes % (A) 17 %; MCH 30.5 pg (25.0-35.0); MCHC 32.6 g/dL (31.0-37.0); MCV 93.7 fL (80.0-100.0); Mean Platelet Volume 7.6; Monocytes # (A) 0.5 k/uL (0-1.0); Monocytes % (A) 6 %; Neutrophils # (A) 6.4 k/uL (1.3-7.7); Neutrophils % (A) 74 %; Platelet Count 306 k/uL (150-450); RBC 4.54 m/uL (4.30-5.90); RDW 13.6 % (11.5-15.5); WBC 8.7 k/uL (3.8-10.6)
--- NOTE | 2022-08-05 15:59 | CT ---
CT scan of the brain. History weakness. Comparison 11/07/2021. FINDINGS: There is 3 cm area of mckeon and white matter hypodensity left parietal lobe consistent with old infarc t. There is no mass effect nor midline shift. There is cerebral cortical atrophy. No evidence of intr acranial hemorrhage. The calvarium is intact. Skull base is intact. There is a 1 cm hypodensity in the left thalamus related to old lacunar infarct. There is 6 mm hypode nsity in the anterior left internal capsule related to old lacunar infarct. IMPRESSION: Old left-sided infarcts as above. Cerebral atrophy. No acute intracranial abnormality. No significant change compared to the old exam.
[2022-08-05 16:11] LABS: Albumin 4.2 g/dL (3.5-5.0); Calcium 8.8 mg/dL (8.4-10.2); Potassium 5.7 mmol/L (3.5-5.1); Total Bilirubin 0.7 mg/dL (0.2-1.3); Total Protein 7.1 g/dL (6.3-8.2)
--- NOTE | 2022-08-05 16:22 | CT ---
EXAMINATION TYPE: CODE STROKE: CTA head neck DATE OF EXAM: 08/05/2022 COMPARISON: None HISTORY: Neuro deficit, acute, stroke suspected CT DLP: 347.4 mGycm Automated exposure control for dose reduction was used. CONTRAST: Performed with IV Contrast, patient injected with 65cc mL of Isovue 370. Images obtained from the aortic arch to the vertex of the brain with the IV contrast. There are Three -D postprocessed images. Thoracic aorta is atheromatous. No mediastinal adenopathy. No evidence of aortic dissection. There is arterial flow in both subclavian arteries. There is arterial flow in the common internal and externa l carotid arteries bilaterally. There is mild plaque formation at the carotid artery bifurcations and estimated 10% stenosis left internal carotid artery origin. There is estimated 40% stenosis at the o rigin of the right internal carotid artery. There is arterial flow in both vertebral arteries. There is arterial flow in the vertebral basilar artery system. No evidence of carotid or vertebral artery a neurysm or dissection. There is arterial flow in the anterior middle and posterior cerebral arteries bilaterally. No mass ef fect. No evidence of intracranial aneurysm or neovascularity. No evidence of intracranial hemodynamic arterial stenosis. There is normal enhancement of the venous sinuses. IMPRESSION: Mild plaque formation at the carotid artery bifurcations and mild stenosis at the origins of both int ernal carotid arteries. No evidence of hemodynamic stenosis. No evidence of intracranial angiographic abnormality.
--- NOTE | 2022-08-05 16:54 | ED ---
General Adult HPI - General Chief complaint: Altered Mental Status Stated complaint: SOB Time Seen by Provider: 08/05/22 15:11 Source: patient Mode of arrival: EMS Limitations: no limitations - History of Present Illness Initial comments: This is an 82-year-old male with a past medical history including COPD and coronary artery disease presented to [facility] department via EMS after being found down in the hallway of his assisted home with reported shortness of breath. When they arrived, the patient did have a right facial droop and some drooling. The patient was taken to the emergency department immediately however reported stroke scale by EMS was negative. The patient was pleasantly confused, ANO 2. The patient was unable to provide any history at the sun did present to the emergency department. It is reported the patient was last seen normal at 11 AM approximately 4 hours and 40 minutes prior to arrival. The patient denied of any facial droop nor drooling or any weakness noted. The patient was however resting in bed comfortably without any acute pain or distress. - Related Data Home Medications Medication Instructions Recorded Confirmed No Known Home Medications 08/05/22 08/05/22 Allergies Allergy/AdvReac Type Severity Reaction Status Date / Time No Known Allergies Allergy Verified 08/05/22 16:05 Review of Systems ROS Statement: Those systems with pertinent positive or pertinent negative responses have been documented in the HPI. ROS Other: All systems not noted in ROS Statement are negative. Past Medical History Past Medical History: COPD, Hyperlipidemia, Hypertension Additional Past Medical History / Comment(s): Peripheral vascular disease History of Any Multi-Drug Resistant Organisms: None Reported Past Surgical History: No Surgical Hx Reported Additional Past Surgical History / Comment(s): Fem-fem bypass at [facility] Past Anesthesia/Blood Transfusion Reactions: No Reported Reaction Past Psychological History: No Psychological Hx Reported Smoking Status: Current every day smoker Past Alcohol Use History: None Reported Past Drug Use History: None Reported - Past Family History Father History Unknown: Yes Additional Family Medical History / Comment(s): Father at age 93 from old age. Mother Family Medical History: CVA/TIA Additional Family Medical History / Comment(s): Mother in her 70s. Unknown cause. Sister(s) Additional Family Medical History / Comment(s): Patient has 4 sisters and 2 from motor vehicle accident. Patient has one son that suffers from alcohol abuse. Patient has 2 daughters and one has from a brain aneurysm. General Exam Limitations: altered mental status General appearance: alert, in no apparent distress Head exam: Present: atraumatic, normocephalic Eye exam: Present: normal appearance, PERRL Pupils: Present: normal accommodation ENT exam: Present: normal exam, normal oropharynx, mucous membranes moist Neck exam: Present: normal inspection, full ROM Respiratory exam: Present: normal lung sounds bilaterally Cardiovascular Exam: Present: regular rate, normal rhythm, normal heart sounds GI/Abdominal exam: Present: soft, normal bowel sounds Extremities exam: Present: normal inspection, full ROM Back exam: Present: normal inspection, full ROM Neurological exam: Present: alert, altered, other (Patient had right-sided facial droop with right tongue deviation. Patient denied of any weakness or deficits noted in the bilateral upper or lower extremities.) Psychiatric exam: Present: normal affect, normal mood Skin exam: Present: warm, dry Course Vital Signs 08/05/22 08/05/22 08/05/22 15:14 15:20 19:17 Temperature 97.7 F Pulse Rate 72 87 74 Respiratory 16 16 18 Rate Blood Pressure 178/66 178/66 169/79 O2 Sat by Pulse 97 99 95 Oximetry 08/05/22 08/05/22 08/05/22 19:36 20:00 20:20 Temperature Pulse Rate 78 71 70 Respiratory 16 16 18 Rate Blood Pressure 179/73 179/70 174/72 O2 Sat by Pulse 96 97 93 L Oximetry 08/05/22 22:03 Temperature Pulse Rate 71 Respiratory 16 Rate Blood Pressure 178/78 O2 Sat by Pulse 96 Oximetry EKG Findings - EKG Comments: EKG Findings:: An EKG was obtained and was read by myself. EKG showed a rate of 77, OH interval 133, QRS duration of 83 and QTC of 380. This EKG showed a normal sinus rhythm however had some artifact secondary to the patient movement. There is no ST segment elevations or depressions noted however. Medical Decision Making - Medical Decision Making The patient was seen and evaluated numerous department. Physical exam, the patient did have a right facial droop with right-sided tongue deviation which was confirmed by the son to be new. The patient was outside the TPA window on arrival however a code stroke was called immediately. CT head and CTA of the head and neck was obtained. Laboratory workup was also obtained at this time. All CT images were negative and the neuro interventional physician, was contacted and did state there was no further intervention needed at this time and for medical management. The only lab abnormality was hyperkalemia however there was no EKG changes noted so this was not treated at this time. While the patient was in the emergency department, the patient had an evolving right-sided deficit including inability to have any motor function in the right arm as well as worsening a fascia and right-sided facial droop. The patient's family was witnessing this and was concerned about this however there was no intervention that can be done. The neuro interventional physician was also contacted once again and continued to reinforce this. The patient did have a d- dimer elevation of 1.66 however due to the patient's contrast load from the angioma of the head and neck, a CTA of the chest was not obtained at this time. The patient will have deferred VQ scan potential for the admitting team. Due to the patient's evolving CVA and right-sided deficit, the patient's primary care physician, was covered by Dr. Duran and did recommend admission to the ICU. The patient was accepted for admission at 1914. The counter professional was contacted shortly after 193. The patient's family was told this plan of admis mercy and an MRI of the brain with and without contrast was obtained. Neurology was also placed on consult. The patient continued to remain stable and was left nothing by mouth at this time. The patient was placed in ICU in critical condition with a worsening evolving right-sided stroke. - Lab Data Result diagrams: 08/05/22 15:49 08/05/22 15:49 Lab Results 08/05/22 08/05/22 08/05/22 Range/Units 15:49 15:49 15:49 WBC 8.7 (3.8-10.6) k/uL RBC 4.54 (4.30-5.90) m/uL Hgb 13.9 (13.0-17.5) gm/dL Hct 42.5 (39.0-53.0) % MCV 93.7 (80.0-100.0) fL MCH 30.5 (25.0-35.0) pg MCHC 32.6 (31.0-37.0) g/dL RDW 13.6 (11.5-15.5) % Plt Count 306 (150-450) k/uL MPV 7.6 Neutrophils % 74 % Lymphocytes % 17 % Monocytes % 6 % Eosinophils % 1 % Basophils % 1 % Neutrophils # 6.4 (1.3-7.7) k/uL Lymphocytes # 1.4 (1.0-4.8) k/uL Monocytes # 0.5 (0-1.0) k/uL Eosinophils # 0.1 (0-0.7) k/uL Basophils # 0.1 (0-0.2) k/uL D-Dimer 1.66 H (<0.60) mg/L FEU Sodium 140 (137-145) mmol/L Potassium 5.7 H (3.5-5.1) mmol/L Chloride 102 (98-107) mmol/L Carbon Dioxide 31 H (22-30) mmol/L Anion Gap 7 mmol/L BUN 19 (9-20) mg/dL Creatinine 1.11 (0.66-1.25) mg/dL Est GFR (CKD-EPI)AfAm 70 (>60 ml/min/1.73 sqM) Est GFR (CKD-EPI)NonAf 61 (>60 ml/min/1.73 sqM) Glucose 207 H (74-99) mg/dL Calcium 8.8 (8.4-10.2) mg/dL Total Bilirubin 0.7 (0.2-1.3) mg/dL AST 23 (17-59) U/L ALT 16 (4-49) U/L Alkaline Phosphatase 91 (38-126) U/L Troponin I (0.000-0.034) ng/mL NT-Pro-B Natriuret Pep pg/mL Total Protein 7.1 (6.3-8.2) g/dL Albumin 4.2 (3.5-5.0) g/dL Lipase 97 (23-300) U/L 08/05/22 08/05/22 Range/Units 15:49 15:49 WBC (3.8-10.6) k/uL RBC (4.30-5.90) m/uL Hgb (13.0-17.5) gm/dL Hct (39.0-53.0) % MCV (80.0-100.0) fL MCH (25.0-35.0) pg MCHC (31.0-37.0) g/dL RDW (11.5-15.5) % Plt Count (150-450) k/uL MPV Neutrophils % % Lymphocytes % % Monocytes % % Eosinophils % % Basophils % % Neutrophils # (1.3-7.7) k/uL Lymphocytes # (1.0-4.8) k/uL Monocytes # (0-1.0) k/uL Eosinophils # (0-0.7) k/uL Basophils # (0-0.2) k/uL D-Dimer (<0.60) mg/L FEU Sodium (137-145) mmol/L Potassium (3.5-5.1) mmol/L Chloride (98-107) mmol/L Carbon Dioxide (22-30) mmol/L Anion Gap mmol/L BUN (9-20) mg/dL Creatinine (0.66-1.25) mg/dL Est GFR (CKD-EPI)AfAm (>60 ml/min/1.73 sqM) Est GFR (CKD-EPI)NonAf (>60 ml/min/1.73 sqM) Glucose (74-99) mg/dL Calcium (8.4-10.2) mg/dL Total Bilirubin (0.2-1.3) mg/dL AST (17-59) U/L ALT (4-49) U/L Alkaline Phosphatase (38-126) U/L Troponin I 0.035 H* (0.000-0.034) ng/mL NT-Pro-B Natriuret Pep 335 pg/mL Total Protein (6.3-8.2) g/dL Albumin (3.5-5.0) g/dL Lipase (23-300) U/L Critical Care Time Total Critical Care Time: 62 Disposition Clinical Impression: CVA (cerebral vascular accident) Disposition: ADMITTED IP TO THIS HOSP Condition: Critical Is patient prescribed a controlled substance at d/c from ED?: No Time of Disposition: 19:15 Decision to Admit Reason: Admit from EC Decision Date: 08/05/22 Decision Time: 19:15
--- NOTE | 2022-08-05 17:53 | XR ---
EXAMINATION TYPE: XR chest 2V DATE OF EXAM: 08/05/2022 COMPARISON: 11/07/2021 HISTORY: Altered mental status TECHNIQUE: 2 views FINDINGS: There is no heart failure nor confluent pneumonic infiltrate. Costophrenic angles are clear . There are no hilar masses. Bony thorax is intact. There are chest leads. IMPRESSION: No active cardiopulmonary disease. No change.
[2022-08-05] MEDS ORDERED: ASPIRIN 300 MG SUPP RECTAL STA (18:46)
[2022-08-05] MEDS ORDERED: TICAGRELOR 90 MG TAB PO STA (18:46)
[2022-08-05] MEDS ORDERED: NALOXONE 0.4 MG/ML 1 ML VIAL IV PRN (19:41)
[2022-08-05 23:23] LABS: Glucose,Whole Blood 109 mg/dL (70-110)
[2022-08-06 03:59] LABS: Basophils # (A) 0.1 k/uL (0-0.2); Basophils % (A) 1 %; Eosinophils # (A) 0.3 k/uL (0-0.7); Eosinophils % (A) 3 %; HCT 40.1 % (39.0-53.0); Lymphocytes # (A) 2.2 k/uL (1.0-4.8); Lymphocytes % (A) 27 %; MCH 29.8 pg (25.0-35.0); MCHC 32.3 g/dL (31.0-37.0); MCV 92.3 fL (80.0-100.0); Mean Platelet Volume 7.5; Monocytes # (A) 0.6 k/uL (0-1.0); Monocytes % (A) 8 %; Neutrophils # (A) 4.8 k/uL (1.3-7.7); Neutrophils % (A) 59 %; Platelet Count 315 k/uL (150-450); RBC 4.35 m/uL (4.30-5.90); RDW 13.8 % (11.5-15.5); WBC 8.3 k/uL (3.8-10.6)
[2022-08-06 04:06] LABS: Albumin 3.8 g/dL (3.5-5.0); Calcium 8.6 mg/dL (8.4-10.2); Potassium 3.9 mmol/L (3.5-5.1); Total Bilirubin 0.6 mg/dL (0.2-1.3); Total Protein 6.6 g/dL (6.3-8.2)
[2022-08-06] MEDS: SODIUM CHLORIDE 0.9% 1,000 ML IV SCH (08:00)
[2022-08-06 08:43] LABS: Glucose,Whole Blood 83 mg/dL (70-110)
--- NOTE | 2022-08-06 10:02 | P.CNPUL ---
History of Present Illness Consult date: 08/06/22 Chief complaint: CVA History of present illness: Male patient with known history of COPD, hypertension, hyperlipidemia, peripheral vascular disease and previous history of fem-fem bypass surgery and the patient is a chronic smoker who lives in an assisted living. The patient has a previous history of CVA also. 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 He was treated and he was discharged to subacute rehabilitation at [facility] and following that to assisted living. He was taking Plavix 75 mg by mouth daily on outpatient basis. The patient came into the hospital yesterday and he was found down in the hallway of his assisted home. When he arrived to our ED, the patient had a right facial droop and right-sided weakness involving the right upper and right lower extremity. He was confused and aphasic. The patient was unable to provide any history in the emergency department. He was last seen normal at around 11 AM and he was outside the window for thrombolytics. Based on that, no thrombus 6 was done and the patient was admitted to the hospital. The cardiac rhythm is sinus. He is hemodynamically stable. His initial CAT scan of the brain that was done in the emergency department showed old left-sided infarct and cerebral atrophy. The patient also had an old lacunar infarct. This involved the left thalamus and old infarct in the internal capsule. There was also an old frontoparietal infarct. The CT angiogram was also done in the same setting and the patient was found to have mild plaque formation of the carotids and there was no evidence of any intra cerebral artery stenosis. As such, the patient was not given any thrombolytics. He was admitted to the intensive care unit. His chest x-ray showed no acute abnormalities. He is white cell cause of 8.3 with a hemoglobin of 15. Rest of the blood work and electrodes are normal. Troponins at 0.03 and a proBNP level is not elevated and the morning blood sugars at 83. D-dimer was at 1.16 6. He is currently resting comfortably in bed. No further neurologic decompensation since yesterday. His morning Review of Systems Constitutional: No fever, no chills, no night sweats. No weight change. No weakness, fatigue or lethargy. No daytime sleepiness. EENT: No headache. No blurred vision or double vision, no loss of vision. No loss of Hearing, no ringing in the ears, no dizziness. No nasal drainage or congestion. No epistaxis. No sore throat. Lungs: No shortness of breath, cough, no sputum production. No wheezing. Cardiovascular: No chest pain, no lower extremity edema. No palpitations. No paroxysmal nocturnal dyspnea. No orthopnea. No lightheadedness or dizziness. No syncopal episodes. Abdominal: No abdominal pain. No nausea, vomiting. No diarrhea. No constipation. No bloody or tarry stools. No loss of appetite. Genitourinary: No dysuria, increased frequency, urgency. No urinary retention. Musculoskeletal: No myalgias. No muscle weakness, no gait dysfunction, no frequent falls. No back pain. No neck pain. Integumentary: No wounds, no lesions. No rash or pruritus. No unusual bruising. No change in hair or nails. Neurologic: aphasia , right sided weakness Psychiatric: No depression. No anxiety. No mood swings. Endocrine: No abnormal blood sugars. No weight change. No excessive sweating or thirst. No cold intolerance. 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 History of Any Multi-Drug Resistant Organisms: None Reported Past Surgical History: No Surgical Hx Reported Additional Past Surgical History / Comment(s): Fem-fem bypass at [facility] Past Anesthesia/Blood Transfusion Reactions: No Reported Reaction Past Psychological History: No Psychological Hx Reported Smoking Status: Current every day smoker Past Alcohol Use History: None Reported Past Drug Use History: None Reported - Past Family History Father History Unknown: Yes Additional Family Medical History / Comment(s): Father at age 93 from old age. Mother Family Medical History: CVA/TIA Additional Family Medical History / Comment(s): Mother in her 70s. Unknown cause. Sister(s) Additional Family Medical History / Comment(s): Patient has 4 sisters and 2 from motor vehicle accident. Patient has one son that suffers from alcohol abuse. Patient has 2 daughters and one has from a brain aneurysm. Medications and Allergies Home Medications Medication Instructions Recorded Confirmed Type No Known Home Medications 08/05/22 08/05/22 History Allergies Allergy/AdvReac Type Severity Reaction Status Date / Time No Known Allergies Allergy Verified 08/05/22 16:05 Physical Exam Vitals: Vital Signs Temp Pulse Resp BP Pulse Ox 08/06/22 08:00 97.8 F 63 17 136/55 95 08/06/22 07:00 66 16 136/55 96 08/06/22 06:00 69 16 124/110 96 08/06/22 05:00 63 12 124/110 96 08/06/22 04:00 64 18 157/80 97 08/06/22 03:00 77 23 144/100 94 L 08/06/22 02:00 97.5 F L 73 16 159/73 95 08/06/22 01:30 66 17 155/76 86 L 08/06/22 01:00 93 25 H 174/86 91 L 08/06/22 00:30 98 F 78 21 174/86 93 L 08/06/22 00:00 81 20 92 L 08/05/22 23:34 76 20 92 L 08/05/22 23:00 173/93 08/05/22 22:33 75 16 140/50 96 08/05/22 22:30 89 183/81 95 08/05/22 22:03 71 16 178/78 96 08/05/22 22:00 75 186/86 96 08/05/22 21:30 88 169/68 95 08/05/22 21:00 71 176/72 94 L 08/05/22 20:30 75 164/63 95 08/05/22 20:20 70 18 174/72 93 L 08/05/22 20:00 79 16 179/73 95 08/05/22 19:36 78 16 179/73 96 08/05/22 19:30 80 169/79 96 08/05/22 19:17 74 18 169/79 95 08/05/22 19:00 76 191/76 97 08/05/22 18:30 80 174/76 98 08/05/22 18:00 69 178/66 97 08/05/22 17:30 69 178/66 98 08/05/22 17:00 75 178/66 97 08/05/22 16:30 75 178/66 96 08/05/22 16:00 80 / 96 08/05/22 15:30 96 08/05/22 15:20 87 16 99 08/05/22 15:14 97.7 F 72 16 98 Intake and Output 08/05/22 08/06/22 08/06/22 22:59 06:59 14:59 Intake Total 85 Output Total 300 0 Balance -300 85 Intake: IV 85 Invasive Line 1 10 Sodium Chloride 0.9% 1, 75 000 ml @ 75 mls/hr IV . [id number] Rx#:[id number] Output: Urine 300 0 Stool 0 Emesis 0 Other: Voiding Method Urinal Urinal # Voids 0 0 # Bowel Movements 0 Weight 45.359 kg 46 kg GENERAL EXAM: Alert, very pleasant, 82-year-old white male, on room air, with a pulse ox of 95% 2 L of oxygen comfortable in no apparent distress. HEAD: Normocephalic/atraumatic. EYES: Normal reaction of pupils, equal size. Conjunctiva pink, sclera white. NOSE: Clear with pink turbinates. THROAT: No erythema or exudates. NECK: No masses, no JVD, no thyroid enlargement, no adenopathy. CHEST: No chest wall deformity. Symmetrical expansion. LUNGS: Equal air entry with basilar crackles, no wheeze, rhonchi or dullness. CVS: Regular rate and rhythm, normal S1 and S2, no gallops, no murmurs, no rubs ABDOMEN: Soft, nontender. No hepatosplenomegaly, normal bowel sounds, no guarding or rigidity. EXTREMITIES: No clubbing, no edema, no cyanosis, 2+ pulses and upper and lower extremities. MUSCULOSKELETAL: Muscle strength and tone normal. SPINE: No scoliosis or deformity SKIN: No rashes CENTRAL NERVOUS SYSTEM: Unable to communicate, aphasic, following simple commands, withdraws to painful stimulation in the right lower extremity, the right upper extremity is extremely weak and had a tick. There is some facial asymmetry with a facial droop on the right. Pupils are equal and reactive to light. No preferential gaze. Tongue is in the midline. Babinski's are mute. Motor function is also reduced on the left. Predominantly is reduced on the right where the motor function is 0 out of 5 in the right upper extremity. Positive cough and a gag. Following dictated failed swallow evaluation and emergency department. PSYCHIATRIC: Alert and oriented -3. Appropriate affect. Intact judgment and insight. Results - Laboratory Findings CBC and BMP: 08/06/22 03:28 08/06/22 03:28 PT/INR, D-dimer D-Dimer 1.66 mg/L FEU (<0.60) H 08/05/22 15:49 Abnormal lab findings: Abnormal Labs 08/05/22 08/05/22 08/05/22 15:49 15:49 15:49 D-Dimer 1.66 H Sodium Potassium 5.7 H Carbon Dioxide 31 H Glucose 207 H Troponin I 0.035 H* 08/06/22 03:28 D-Dimer Sodium 136 L Potassium Carbon Dioxide Glucose Troponin I - Diagnostic Findings Chest x-ray: image reviewed Assessment and Plan Plan: Acute CVA with aphasia and right-sided weakness. Rule out left sided MCA distribution stroke. Initial CAT scan of the brain showed old infarcts involving the left parietal lobe and left internal capsule/thalamus lacunar infarcts. No acute abnormalities were noted. Repeat CAT scan of the brain/MRI will be needed. The patient was outside the window for thrombolytics and the patient is currently hemodynamically stable. Cardiac rhythm is sinus. Bilateral nonocclusive carotid artery disease Old CVA Failed swallow evaluation secondary to CVA COPD Chronic smoker more than [id number] Ongoing weight loss Severe peripheral vascular disease with the various fem-fem bypass surgery Hypertension Hyperlipidemia Plan Will need follow-up CAT scan of the brain and MRI is the follow Neurology consultation Continue rectal aspirin The patient was supposed to be on Plavix on outpatient basis. I'm not sure if he was taken the medication Consult neurology Evaluate swallow Avoid any systolic blood pressure above 180 and diastolic above 110 IV fluids with 0.9 saline at rate of 75 mL's an hour Keep the patient nothing by mouth for now Unable to take aggressively oral medication for now and those will be placed on hold Compression devices lower extremities Do a fasting lipid profile We'll continue to follow Time with Patient: Greater than 30
[2022-08-06] MEDS ORDERED: ASPIRIN 300 MG SUPP RECTAL SCH (10:30)
[2022-08-06] MEDS: PANTOPRAZOLE 40 MG/10 ML VIAL IVP SCH (11:54)
[2022-08-06 12:27] LABS: Appearance,Urine Clear (Clear); Bilirubin,Urine Negative (Negative); Blood,Urine Trace (Negative); Color,Urine Yellow; Glucose,Urine (UA) Negative (Negative); Ketones,Urine 1+ (Negative); Leukocyte Esterase,Urine Negative (Negative); Mucus,Urine Rare /hpf; Nitrite,Urine Negative (Negative); PH, Urine 6.5 (5.0-8.0); Protein,Urine Trace (Negative); RBC,Urine 10 /hpf (0-5); Specific Gravity,Urine 1.037 (1.001-1.035); WBC,Urine 1 /hpf (0-5)
--- NOTE | 2022-08-06 13:56 | MR ---
EXAMINATION TYPE: MR brain wo/w con DATE OF EXAM: 08/06/2022 COMPARISON: None HISTORY: CVA. TECHNIQUE: Multiplanar, multisequence images of the brain and brainstem is performed without and with IV contras t, utilizing 4.5 mL intravenous Gadavist . FINDINGS: On the T1-weighted sagittal images midline structures including the craniovertebral junction relation ships appear normal. The ventricles, basal cisterns and sulci over the convexities are within normal limits for the patien t's age and there is no mass, mass effect or shift of the midline structures. On the FLAIR axial images there are mild scattered areas of chronic ischemic white matter demyelinati on. On the diffusion-weighted images, there is a focal area of diffusion restriction in the left basal g anglia and adjacent deep periventricular white matter consistent with an acute ischemic infarct. There is a small remote lacunar infarct in the left internal capsule. There is a lacunar deep white matter of the left frontal lobe white matter adjacent to the anterior h orn of the left lateral ventricle Following contrast administration, there is no pathological enhancement throughout the brain parenchy ma. The posterior fossa including the brainstem, fourth ventricle and cerebellar pontine angles appear no rmal. The intraorbital contents appear normal and symmetric. Visualized paranasal sinuses and mastoid air cells are well aerated. IMPRESSION: 1 Acute infarct involving the left basal ganglia and adjacent periventricular white matter 2. Few scattered remote lacunar infarcts as described above. 3. No mass mass effect or shift of midline structures. .
[2022-08-06] MEDS ORDERED: TICAGRELOR 90 MG TAB PO STA (14:25)
--- NOTE | 2022-08-06 15:42 | P.CNNES ---
History of Present Illness Consult date: 08/06/22 Requesting physician: Anthony Hutton Reason for Consult: CVA History of Present Illness: Patient is a 82-year-old right-handed male, with history of hypertension, hyperlipidemia, previous stroke, chronic heavy tobacco use, noncompliant with medications, was brought to the hospital by ambulance yesterday at 3:03 PM. Sanjiv auguste's multiple family members were present, who provided with a history. One of the son who was present at the time of this interview, mentioned that he was with his dad in the morning and talked to the patient yesterday and he was fine before he left at 11 am. Apparently the other son came to him at around 2:30 PM and patient was laying in the hallway, with strokelike symptoms. He called the ambulance and patient was brought to the hospital. As per EMS flow sheet, when they arrived, patient was in the hallway supine on the floor with staff just outside of his door residence at [facility]. Patient was alert and oriented 3 with GCS of 14 with some confusion. Patient is on home oxygen at 2-3 L/m. Patient is a current smoker COPD and hypertension. Patient tried to answer questions but speech was not normal, difficult to express himself and becomes very emotional. [place] stroke scale was positive for right facial droop. Bilateral equal wave solder offbearer. Patient able to move lower extremities. Patient's blood glucose was 268. Patient was confused as to how he got in the hallway. No bleeding noticed. Patient's son concurred that patient's speech was slightly more garbled than usual. Patient's vitals at the scene was blood pressure 188/81, pulse rate 98, respiration 18, saturation 100% and blood sugar 268. Patient's blood test shows normal CBC, d-dimer is 1.66, sodium is normal potassium 5.7. Renal functions are normal. Hepatic panel normal. Troponin borderline 0.035. UA is negative. CT head showed old left-sided infarct in the thalamus. Cerebral atrophy. No acute intracranial abnormality. No significant change compared to the old exam. I personally reviewed CT head and is evidence of an old lacunar infarct left thalamus and subacute to chronic infarct in the left interior capsule. Also evidence of old encephalomalacia in the left posterior frontal region. CTA of head and neck showed mild plaque formation at the carotid artery bifurcations and mild stenosis at the origin of both ICAs. No evidence of hemodynamic stenosis. No evidence of intracranial angiographic abnormality. EKG shows sinus rhythm with marked sinus arrhythmia. Chest x-ray showed no active cardiopulmonary disease. On review of the ED records, initial NIH stroke scale was documented as 4. Stroke code was activated and ED staff discussed case with Neuro-intervention Dr. Go and patient was considered not a candidate for TPA, as per ED report, he was outside the window for TPA at that time. Please refer to ED note for further details. Apparently while in t ER at around 6:30 PM patient's symptoms got worse and he became right hemiparetic with NIHSS of 7. It appears that ED staff contacted stroke neurologist Dr Velez again and no intervention was recommended, as there was no LVO. Aspirin and Brilinta was recommended. Patient was not able to take anything by mouth therefore patient was given aspirin 300 mg rectally in ED, and patient could not receive Brilinta in the ER due to dysphagia. I was informed about this patient this morning. Per nurse and patient's family report, patient was worse in the morning today, but now he is slightly better. Patient has passed bedside swallow as per nurse statement. On review of records, patient was seen by Dr. Star Mera on 11/08/2021 for confusion, unable to take care of himself and decreased oral intake. MRI of the brain was done, which revealed subacute to chronic ischemic stroke over the right periventricular region. Examination showed no focal deficits at that time. Patient has history of left basal ganglia stroke due to small vessel disease. Patient had dyslipidemia, acute kidney injury, hypertension, PAD and tobacco use. Patient was placed on dual antiplatelet medication at that time including Plavix and aspirin. Patient was discharged on aspirin 81 mg, Lipitor 40 mg and Plavix 75 mg. Apparently patient has stopped taking all medications including aspirin. He is not taking any medication as per family's statement. I called [facility] pharmacy, and he was prescribed Plavix 75 mg, #90 tablets and Lipitor 40 mg, #90 tablets by his visiting physician Dr. Peter العراقي. He picked both of these scripts on 12/19/2021. Both of these scripts had two refills available (for 6 months), which he never availed. Patient has history of smoking at least 2 pack per day for 70 years, just recently cut back to smoking half pack per day. He started smoking since age 12. No history of diabetes or hypertension. Patient currently lives at [facility], which is a assisted living facility. Per patient's family, he has a walker, but usually does not use any device at home. He has slight speech slurring, but family can understand him very easily. Review of Systems Constitutional: Denies chills, Denies fever Eyes: denies blurred vision, denies pain Ears, nose, mouth and throat: Denies headache, Denies sore throat Cardiovascular: Denies chest pain, Denies shortness of breath Respiratory: Reports cough, Denies wheezing Gastrointestinal: Denies abdominal pain, Denies diarrhea, Denies nausea, Denies vomiting Genitourinary: Denies incontinence Musculoskeletal: Denies myalgias Neurological: Denies numbness, Denies weakness Psychiatric: Denies anxiety, Denies depression Endocrine: Denies fatigue, Denies weight change Past Medical History Past Medical History: COPD, Hyperlipidemia, Hypertension Additional Past Medical History / Comment(s): Peripheral vascular disease also be able and the frontal, the patient has an old CVA involving the left parietal lobe and various other lacunar infarcts involving the left thalamus and internal capsule. History of Any Multi-Drug Resistant Organisms: None Reported Past Surgical History: No Surgical Hx Reported Additional Past Surgical History / Comment(s): Fem-fem bypass at [facility] Past Anesthesia/Blood Transfusion Reactions: No Reported Reaction Past Psychological History: No Psychological Hx Reported Smoking Status: Current every day smoker Past Alcohol Use History: None Reported Past Drug Use History: None Reported - Past Family History Father History Unknown: Yes Additional Family Medical History / Comment(s): Father at age 93 from old age. Mother Family Medical History: CVA/TIA Additional Family Medical History / Comment(s): Mother in her 70s. Unknown cause. Sister(s) Additional Family Medical History / Comment(s): Patient has 4 sisters and 2 from motor vehicle accident. Patient has one son that suffers from alcohol abuse. Patient has 2 daughters and one has from a brain aneurysm. Medications and Allergies Home Medications Medication Instructions Recorded Confirmed Type No Known Home Medications 08/05/22 08/05/22 History Allergies Allergy/AdvReac Type Severity Reaction Status Date / Time No Known Allergies Allergy Verified 08/05/22 16:05 Physical Examination - Vital Signs Vital Signs: Vital Signs Temp Pulse Resp BP Pulse Ox 08/06/22 12:00 97.8 F 64 15 147/60 95 08/06/22 11:00 66 18 177/70 96 08/06/22 10:00 71 17 131/67 97 08/06/22 09:00 65 16 118/84 93 L 08/06/22 08:00 97.8 F 63 17 136/55 95 08/06/22 07:00 66 16 136/55 96 08/06/22 06:00 69 16 124/110 96 08/06/22 05:00 63 12 124/110 96 08/06/22 04:00 64 18 157/80 97 08/06/22 03:00 77 23 144/100 94 L 08/06/22 02:00 97.5 F L 73 16 159/73 95 08/06/22 01:30 66 17 155/76 86 L 08/06/22 01:00 93 25 H 174/86 91 L 08/06/22 00:30 98 F 78 21 174/86 93 L 08/06/22 00:00 81 20 92 L 08/05/22 23:34 76 20 92 L 08/05/22 23:00 173/93 08/05/22 22:33 75 16 140/50 96 08/05/22 22:30 89 183/81 95 08/05/22 22:03 71 16 178/78 96 08/05/22 22:00 75 186/86 96 08/05/22 21:30 88 169/68 95 08/05/22 21:00 71 176/72 94 L 08/05/22 20:30 75 164/63 95 08/05/22 20:20 70 18 174/72 93 L 08/05/22 20:00 79 16 179/73 95 08/05/22 19:36 78 16 179/73 96 08/05/22 19:30 80 169/79 96 08/05/22 19:17 74 18 169/79 95 08/05/22 19:00 76 191/76 97 08/05/22 18:30 80 174/76 98 08/05/22 18:00 69 178/66 97 08/05/22 17:30 69 178/66 98 08/05/22 17:00 75 178/66 97 08/05/22 16:30 75 96 08/05/22 16:00 80 96 08/05/22 15:30 96 08/05/22 15:20 87 16 99 08/05/22 15:14 97.7 F 72 16 98 Intake and Output 08/05/22 08/06/22 08/06/22 22:59 06:59 14:59 Intake Total 395 Output Total 300 400 Balance -300 -5 Intake: IV 395 Invasive Line 1 20 Sodium Chloride 0.9% 1, 375 000 ml @ 75 mls/hr IV . [id number] RAAD Rx#:[id number] Output: Urine 300 400 Stool 0 Emesis 0 Other: Voiding Method Urinal Indwelling Catheter # Voids 0 0 # Bowel Movements 0 Weight 45.359 kg 46 kg Patient is an elderly male, laying comfortably in the bed, in no acute distress. Patient is alert awake. He knows his age 82. He could not tell the month, and per family, he does not keep track of it. Speech is mild to moderately dysarthric, but quite easily understandable. There is no aphasia. Patient can name and repeat very well. Patient was able to name 5/5 objects presented (pen, eyeglasses, thumb, knuckles and ear lobe). Patient can repeat very well. His comprehension is fully intact. Attention, concentration is intact and fund of knowledge slightly limited. Detailed cognitive function testing deferred. On cranial nerve examination, pupils are equal, round and reacting to light, visual vazquez are full on confrontation, with no neglect on double simultaneous stimulation. His extraocular muscles are intact with no nystagmus. patient has moderate right facial weakness, central type. Patient's tongue deviates slightly to the right. Palatal elevation and sensation normal, hearing and facial sensation normal. Shoulder shrug significantly decreased on the right. On muscle strength testing, patient's right arm is flaccid. Patient's right lower extremity with hip flexion 3+4-, plantar flexion 5, ankle dorsiflexion 4. The strength is completely normal in the left arm and left leg. Deep tendon reflexes are (right/left) biceps 1/2, brachioradialis 1/2, knee 2/2, ankles 1/1 and plantar is up on the right, down on the left. Sensory to touch is slightly decreased in the right arm as compared to the left. It was equal in the lower extremities bilaterally. There is no neglect on double simultaneous stimulation. Cerebellar function cannot be performed in the right upper limb. No ataxia for right lower limb. No ataxia on the left side. He is slightly tremulous for aceeci-du-blpi testing with the left hand. Tone and bulk of muscles normal. Gait not able to be checked. On general examination, there is no carotid bruit or murmur, S1-S2 audible. Chest is clear on consultation. Abdomen is soft nontender. No organomegaly, bowel sounds present. Peripheral pulses are present. No edema. Results - Laboratory Findings CBC and BMP: 08/07/22 03:57 08/07/22 03:57 Abnormal Lab Findings: Abnormal Labs 08/05/22 08/05/22 08/05/22 15:49 15:49 15:49 D-Dimer 1.66 H Sodium Potassium 5.7 H Carbon Dioxide 31 H Glucose 207 H Troponin I 0.035 H* Ur Specific [place] Urine Protein Urine Ketones Urine Blood Urine RBC Urine Mucus 08/06/22 08/06/22 03:28 12:08 D-Dimer Sodium 136 L Potassium Carbon Dioxide Glucose Troponin I Ur Specific [place] 1.037 H Urine Protein Trace H Urine Ketones 1+ H Urine Blood Trace H Urine RBC 10 H Urine Mucus Rare H Assessment and Plan Assessment: * Acute ischemic stroke, with right hemiparesis. Patient's current NIH stroke scale is 9. Patient did not receive TPA. No LVO noted on CTA of head and neck. * Hypertension * Hyperlipidemia * Chronic heavy tobacco use * History of subacute stroke in November 2021. * Noncompliant with medication Plan: * MRI of the brain just completed, which confirmed an acute ischemic stroke involving the left basal ganglia. I reviewed MRI of the brain, and agree with the findings. * CTA of head and neck did not show any significant intracranial or extracranial stenosis. No LVO. * 2-D echo with bubble study to rule out PFO * Fasting lipid panel, hemoglobin A1c * Patient was given aspirin 300 mg rectally in the ER yesterday and also received this am as well. Brilinta was initiated in the ER, but patient could not swallow yesterday. Today he has passed bedside swallow. Patient will be given Brilinta 180 mg loading dose followed by 90 mg twice a day. * Continue aspirin 81 mg daily. * Lipid panel from 11/10/2021 revealed cholesterol 230, LDL 150, HDL 43 and triglycerides 185. Patient will be started again on Lipitor 80 mg daily. Repeat lipid panel from this admission is pending. * Hemoglobin A1c * Permissive hypertension for 24-48 hours. Do not treat blood pressure unless > 220/120. * DVT prophylaxis: Patient on Lovenox 40 mg subcu daily. Patient also on Protonix for gastric ulcer prophylaxis. * PT OT, speech therapy. * Discussed with patient's family and nursing staff in detail. * Neurology will follow. Thank you for the consult.
[2022-08-06] MEDS ORDERED: SODIUM CHLORIDE 0.9% 2,000 ML IV ONE (15:55)
[2022-08-06 17:06] LABS: Chol/HDL Ratio 4.57 Ratio; LDL Cholesterol,Calculated 152.5 mg/dL (0.0-131.0)
[2022-08-06] MEDS ORDERED: CALCIUM CARBONATE 500 MG CHEWABLE PO PRN (17:33)
[2022-08-06] MEDS ORDERED: MELATONIN 3 MG TABLET PO PRN (17:33)
[2022-08-06] MEDS ORDERED: ONDANSETRON 4 MG/2 ML VIAL IVP PRN (17:33)
[2022-08-06] MEDS ORDERED: LORazepam 0.5 MG TAB PO PRN (17:33)
[2022-08-06] MEDS ORDERED: LACTULOSE 20 GM/30 ML CUP PO PRN (17:33)
[2022-08-06] MEDS ORDERED: ACETAMINOPHEN TAB 325 MG TAB PO PRN (17:33)
--- NOTE | 2022-08-06 17:39 | P.HPIM ---
History of Present Illness H&P Date: 08/06/22 Chief Complaint: Found on the floor This is a pleasant 82-year-old patient follows with visiting physicians Dr. Tejada. Chronic stable medical conditions include COPD, hypertension, hyperlipidemia, PAD prior strokes and infarcts, cognitive impairment, smoker, lives in assisted living. Accompanied by son and daughter in the ICU today.. Patient lives of [facility]. EMS arrived to find the patient in the hallway supine on the floor, just outside his door residence. Patient's son who arrived found that the speech was also different. There was some right-sided facial droop noted. Along with drooling. In the ER stroke scale with EMS was negative. Patient was reported to be normal at 11 AM was about 4 hours and 40 minutes prior to arrival as per the ER notes. Patient bit of the ICU/production bow maker consulted. In addition to neurologist. This morning patient speech remains slow. Applesauce being tried. Right-sided weakness both the arm and the leg. No change in vision. No headache. Review of systems: GEN.: Tired EYES: None HEENT: None NECK: None RESPIRATORY: Some shortness of breath CARDIOVASCULAR: None GASTROINTESTINAL: None GENITOURINARY: None MUSCULOSKELETAL: Some joint pains LYMPHATICS: None HEMATOLOGICAL: None PSYCHIATRY: None NEUROLOGICAL: Right-sided weakness, facial asymmetry Past medical history to include: COPD, hypertension, hyperlipidemia, PAD, prior CVA including the left parietal lobe and other lacunar infarcts including the left thalamus and internal capsule. Social history: Patient supposed use a walker but does not use one. Lives of [facility]. Smoking a pack a day for close to 70 years. Alcohol occasionally. Physical examination: VITAL SIGNS: 97.5, 64, 18, 157/80, 97% on 2 L GENERAL: BMI 18.5, declining with awake, slightly anxious. EYES: Pupils equal. Conjunctiva normal. HEENT: External appearance of nose and ears normal, oral cavity grossly normal. NECK: JVD not raised; masses not palpable. HEART: First and second heart sounds are normal; no edema. LUNGS:[ Respiratory rate increased, diminished breath sounds. ABDOMEN: Soft, nontender, liver spleen not palpable, no masses palpable. PSYCH: Patient able tonsil simple questions, more affect anxiousl. MUSCULOSKELETAL:No Clubbing/cyanosis;muscles-grossly intact evidence of OA NEUROLOGICAL: Facial asymmetry, with speech slurred, power in the right arm 1/5, power in the right leg 2/5. Reflexes increased on the right side. Upgoing Babinski on the right side. LYMPHATICS: No lymph nodes palpable in the axilla and neck INVESTIGATIONS, reviewed in the clinical context: WBC 8.3 hemoglobin 13 platelets 315 progression 3.9 creatinine 0.98 Troponin I 0.[address] brain: Old left-sided infarct. Cerebral atrophy. No change from before CT angiogram head and neck: Mild plate formation of the carotid artery bifurcation. Not otherwise. EKG tracing personally reviewed by me-normal sinus rhythm Chest x-ray film personally reviewed by me-possible chronic changes Assessment and plan: -Acute stroke in the left cerebral hemisphere distribution clinically, with progression from initial presentation, affecting speech and right arm right leg Pending MRI. Aspirin, Brillinta, Lipitor. 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 -COPD, and a current smoker DuoNeb 3 times a day -Essential hypertension Avoid blood pressure and bloating for first 24 hours. We will treat systolic blood pressure only above 221 or diastolic above 120 -Hyperlipidemia Lipitor -Chronic nicotine dependence, cigarette smoker Nicotine patch 21 -Acute dysarthria secondary to stroke Speech therapy. -PAD Aspirin, Lipitor -Questionable dysphagia. Applesauce consistency including medications for now. Further evaluation by speech therapy. -Full code Aspirin, Brillinta, Lipitor. Neuro checks. MRI. 2-D echo. Consultation to production bow maker, neurology. PTOT. Speech Therapy..pureed diet. Advanced care planning: Patient's daughter and son at the bedside. It's unclear between the 2 who is the power for claim attorney. I discussed with the patient and the family the bedside. They will discuss further to decide who will be the power of claim attorney. But they'll be taking group decision. CODE STATUS was also discussed. At this point patient remained full code. They'll meet later today to decide if patient should be a DO NOT RESUSCITATE. Questions were answered in detail. Total time spent about 30 minutes for this. 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 History of Any Multi-Drug Resistant Organisms: None Reported Past Surgical History: No Surgical Hx Reported Additional Past Surgical History / Comment(s): Fem-fem bypass at [facility] Past Anesthesia/Blood Transfusion Reactions: No Reported Reaction Past Psychological History: No Psychological Hx Reported Smoking Status: Current every day smoker Past Alcohol Use History: None Reported Past Drug Use History: None Reported - Past Family History Father History Unknown: Yes Additional Family Medical History / Comment(s): Father at age 93 from old age. Mother Family Medical History: CVA/TIA Additional Family Medical History / Comment(s): Mother in her 70s. Unknown cause. Sister(s) Additional Family Medical History / Comment(s): Patient has 4 sisters and 2 from motor vehicle accident. Patient has one son that suffers from alcohol abuse. Patient has 2 daughters and one has from a brain aneurysm. Medications and Allergies Home Medications Medication Instructions Recorded Confirmed Type No Known Home Medications 08/05/22 08/05/22 History Allergies Allergy/AdvReac Type Severity Reaction Status Date / Time No Known Allergies Allergy Verified 08/05/22 16:05 Physical Exam Vitals: Vital Signs Temp Pulse Resp BP Pulse Ox 08/06/22 08:00 97.8 F 63 17 136/55 95 08/06/22 07:00 66 16 136/55 96 08/06/22 06:00 69 16 124/110 96 08/06/22 05:00 63 12 124/110 96 08/06/22 04:00 64 18 157/80 97 08/06/22 03:00 77 23 144/100 94 L 08/06/22 02:00 97.5 F L 73 16 159/73 95 08/06/22 01:30 66 17 155/76 86 L 08/06/22 01:00 93 25 H 174/86 91 L 08/06/22 00:30 98 F 78 21 174/86 93 L 08/06/22 00:00 81 20 92 L 08/05/22 23:34 76 20 92 L 08/05/22 23:00 173/93 08/05/22 22:33 75 16 140/50 96 08/05/22 22:30 89 183/81 95 08/05/22 22:03 71 16 178/78 96 08/05/22 22:00 75 186/86 96 08/05/22 21:30 88 169/68 95 08/05/22 21:00 71 176/72 94 L 08/05/22 20:30 75 164/63 95 08/05/22 20:20 70 18 174/72 93 L 08/05/22 20:00 79 16 179/73 95 08/05/22 19:36 78 16 179/73 96 08/05/22 19:30 80 169/79 96 08/05/22 19:17 74 18 169/79 95 08/05/22 19:00 76 191/76 97 08/05/22 18:30 80 174/76 98 08/05/22 18:00 69 178/66 97 08/05/22 17:30 69 178/66 98 08/05/22 17:00 75 178/66 97 08/05/22 16:30 75 178/66 96 08/05/22 16:00 80 178/66 96 08/05/22 15:30 178/66 96 08/05/22 15:20 87 16 178/66 99 08/05/22 15:14 97.7 F 72 16 178/66 98 Intake and Output 08/05/22 08/06/22 08/06/22 22:59 06:59 14:59 Intake Total 235 Output Total 300 0 Balance -300 235 Intake: IV 235 Invasive Line 1 10 Sodium Chloride 0.9% 1, 225 000 ml @ 75 mls/hr IV . [id number] [facility] Rx#:[id number] Output: Urine 300 0 Stool 0 Emesis 0 Other: Voiding Method Urinal Urinal # Voids 0 0 # Bowel Movements 0 Weight 45.359 kg 46 kg Results CBC & Chem 7: 08/06/22 03:28 08/06/22 03:28 Labs: Abnormal Lab Results - Last 24 Hours (Table) 08/05/22 08/05/22 08/05/22 Range/Units 15:49 15:49 15:49 D-Dimer 1.66 H (<0.60) mg/L FEU Sodium (137-145) mmol/L Potassium 5.7 H (3.5-5.1) mmol/L Carbon Dioxide 31 H (22-30) mmol/L Glucose 207 H (74-99) mg/dL Troponin I 0.035 H* (0.000-0.034) ng/mL 08/06/22 Range/Units 03:28 D-Dimer (<0.60) mg/L FEU Sodium 136 L (137-145) mmol/L Potassium (3.5-5.1) mmol/L Carbon Dioxide (22-30) mmol/L Glucose (74-99) mg/dL Troponin I (0.000-0.034) ng/mL
[2022-08-06] MEDS: NICOTINE 21MG/24HR PATCH TRANSDERM SCH (18:42)
[2022-08-06] MEDS: ENOXAPARIN 40 MG/0.4 ML SYRINGE SQ SCH (18:42)
[2022-08-06] MEDS: FUROSEMIDE 10 MG/ML 4 ML VIAL IV SCH (18:42)
[2022-08-06] MEDS: IPRATROPIUM-ALBUTEROL 3 ML NEB INHALATION SCH ×2 (18:49→19:36)
[2022-08-06] MEDS: TICAGRELOR 90 MG TAB PO SCH (18:50)
[2022-08-06] MEDS: ATORVASTATIN 80 MG TAB PO SCH (20:04)
[2022-08-06 22:06] LABS: Urine Alcohol Negative (Negative); Urine Barbiturate Negative (Negative); Urine Cocaine Negative (Negative); Urine Methadone Negative (Negative); Urine Opiates Negative (Negative); Urine Phencyclidine Negative (Negative)
[2022-08-07 04:17] LABS: Basophils # (A) 0.1 k/uL (0-0.2); Basophils % (A) 1 %; Eosinophils # (A) 0.1 k/uL (0-0.7); Eosinophils % (A) 1 %; HCT 41.5 % (39.0-53.0); HGB 13.5 gm/dL (13.0-17.5); Lymphocytes # (A) 1.6 k/uL (1.0-4.8); Lymphocytes % (A) 15 %; MCH 30.4 pg (25.0-35.0); MCHC 32.6 g/dL (31.0-37.0); MCV 93.1 fL (80.0-100.0); Mean Platelet Volume 7.5; Monocytes # (A) 0.8 k/uL (0-1.0); Monocytes % (A) 7 %; Neutrophils # (A) 7.9 k/uL (1.3-7.7); Neutrophils % (A) 75 %; Platelet Count 340 k/uL (150-450); RBC 4.46 m/uL (4.30-5.90); RDW 13.8 % (11.5-15.5); WBC 10.5 k/uL (3.8-10.6)
[2022-08-07 04:29] LABS: Albumin 3.8 g/dL (3.5-5.0); Calcium 8.1 mg/dL (8.4-10.2); Potassium 3.7 mmol/L (3.5-5.1); Total Protein 6.6 g/dL (6.3-8.2)
[2022-08-07] MEDS ORDERED: Potassium Replacement Protocol 1 EACH MISC MISCELLANE PRN (05:10)
[2022-08-07] MEDS ORDERED: POTASSIUM CHLORIDE 10 MEQ in WATER FOR INJECTION 1 100ML.BAG IVPB SCH (05:15)
[2022-08-07] MEDS: POTASSIUM CHLORIDE 10 MEQ in WATER FOR INJECTION 1 100ML.BAG IVPB SCH ×2 (06:20→08:08)
[2022-08-07] MEDS: SODIUM CHLORIDE 0.9% 1,000 ML IV SCH ×2 (06:22→10:01)
[2022-08-07] MEDS: NICOTINE 21MG/24HR PATCH TRANSDERM SCH (08:10)
[2022-08-07] MEDS: PANTOPRAZOLE 40 MG/10 ML VIAL IVP SCH (08:10)
[2022-08-07] MEDS: FUROSEMIDE 10 MG/ML 4 ML VIAL IV SCH (08:10)
[2022-08-07] MEDS: ENOXAPARIN 40 MG/0.4 ML SYRINGE SQ SCH (08:10)
[2022-08-07] MEDS: TICAGRELOR 90 MG TAB PO SCH ×2 (08:10→21:31)
[2022-08-07] MEDS: ASPIRIN 81 MG PO SCH (08:10)
[2022-08-07] MEDS: IPRATROPIUM-ALBUTEROL 3 ML NEB INHALATION SCH ×3 (08:33→19:12)
--- NOTE | 2022-08-07 10:28 | P.PN ---
Subjective Progress Note Date: 08/07/22 Principal diagnosis: Acute CVA Male patient with known history of COPD, hypertension, hyperlipidemia, peripheral vascular disease and previous history of fem-fem bypass surgery and the patient is a chronic smoker who lives in an assisted living. The patient has a previous history of CVA also. 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 He was treated and he was discharged to subacute rehabilitation at [facility] and following that to assisted living. He was taking Plavix 75 mg by mouth daily on outpatient basis. The patient came into the hospital yesterday and he was found down in the hallway of his senior care home. When he arrived to our ED, the patient had a right facial droop and right-sided weakness involving the right upper and right lower extremity. He was confused and aphasic. The patient was unable to provide any history in the emergency department. He was last seen normal at around 11 AM and he was outside the window for thrombolytics. Based on that, no thrombus 6 was done and the patient was admitted to the hospital. The cardiac rhythm is sinus. He is hemodynamically stable. His initial CAT scan of the brain that was done in the emergency department showed old left-sided infarct and cerebral atrophy. The patient also had an old lacunar infarct. This involved the left thalamus and old infarct in the internal capsule. There was also an old frontoparietal infarct. The CT angiogram was also done in the same setting and the patient was found to have mild plaque formation of the carotids and there was no evidence of any intracerebral artery stenosis. As such, the patient was not given any thrombolytics. He was admitted to the intensive care unit. His chest x-ray showed no acute abnormalities. He is white cell cause of 8.3 with a hemoglobin of 15. Rest of the blood work and electrodes are normal. Troponins at 0.03 and a proBNP level is not elevated and the morning blood sugars at 83. D-dimer was at 1.16 6. He is currently resting comfortably in bed. No further neurologic decompensation since yesterday. Reevaluated today on 08/07/22, patient remains in the ICU, he has significant aphasia and he has right-sided weakness, however patient is not in any form of pulmonary distress. Patient is on 2 L, FiO2 is 96%. Again the patient does not seem to be in any distress. His WBC count is 10.5 hemoglobin is 13.7. Electrolytes are normal renal profile showed a pO2 of 60 and creatinine 1.23. Patient was seen by neurology yesterday. [place] that the patient had an acute ischemic stroke, did not feel that the patient was a candidate for TPA. And the recommendation is to have MRI which was done, and the findings were noted by the neurologist. The recommendation is to continue permissive hypertension. And PTT prophylaxis, continue Lovenox, continue Protonix, continue PTOT and speech therapy, Objective - Vital Signs Vital signs: Vital Signs Temp 97.5 F L 08/07/22 08:00 Pulse 88 08/07/22 10:00 Resp 19 08/07/22 10:00 BP 154/70 08/07/22 10:00 Pulse Ox 92 L 08/07/22 10:00 FiO2 70 08/06/22 17:33 Intake & Output 08/06/22 08/07/22 08/07/22 18:59 06:59 18:59 Intake Total 2855 1030 400 Output Total 717 3055 315 Balance 2137 -2024 85 Weight 48.2 kg Intake: IV 2855 930 300 Invasive Line 1 30 30 Sodium Chloride 0.9% 1, 825 900 300 000 ml @ 75 mls/hr IV . [id number] [facility] Rx#:[id number] Sodium Chloride 0.9% 2, 2000 000 ml @ 999 mls/hr IV . Q2H1M [facility] Rx#:[id number] Intake, IV Titration 100 100 Amount Potassium Chloride 10 meq 100 100 In Water For Injection 1 100ml.bag @ 100 mls/hr IVPB Q1H [facility] Rx#: [id number] Output: Urine 717 3055 315 Stool 0 Emesis 0 Other: Voiding Method Indwelling Catheter Indwelling Catheter Indwelling Catheter # Voids 0 # Bowel Movements 0 - Exam GENERAL EXAM: Alert, very pleasant, on 2 L nasal cannula HEAD: Normocephalic/atraumatic. HEENT: PERRLA, EOMI, anicteric, patient has aphasic CHEST: No chest wall deformity. Symmetrical expansion. LUNGS: Equal air entry with basilar crackles, no wheeze, rhonchi or dullness. CVS: Regular rate and rhythm, normal S1 and S2, no gallops, no murmurs, no rubs ABDOMEN: Soft, nontender. No hepatosplenomegaly, normal bowel sounds, no guarding or rigidity. EXTREMITIES: No clubbing, no edema, no cyanosis, 2+ pulses and upper and lower extremities. MUSCULOSKELETAL: Muscle strength and tone normal. SKIN: No rashes CENTRAL NERVOUS SYSTEM: Unable to communicate, aphasic, following simple commands, right-sided paralysis as noted involving the right upper extremity and right lower extremities. - Labs CBC & Chem 7: 08/07/22 03:57 08/07/22 03:57 Labs: Abnormal Lab Results - Last 24 Hours (Table) 08/06/22 08/06/22 08/07/22 Range/Units 03:28 12:08 03:57 Neutrophils # 7.9 H (1.3-7.7) k/uL Calcium (8.4-10.2) mg/dL Cholesterol 215.00 H (0.00-200.00) mg/dL LDL Cholesterol, Calc 152.5 H (0.0-131.0) mg/dL Ur Specific [place] 1.037 H (1.001-1.035) Urine Protein Trace H (Negative) Urine Ketones 1+ H (Negative) Urine Blood Trace H (Negative) Urine RBC 10 H (0-5) /hpf Urine Mucus Rare H (None) /hpf 08/07/22 Range/Units 03:57 Neutrophils # (1.3-7.7) k/uL Calcium 8.1 L (8.4-10.2) mg/dL Cholesterol (0.00-200.00) mg/dL LDL Cholesterol, Calc (0.0-131.0) mg/dL Ur Specific [place] (1.001-1.035) Urine Protein (Negative) Urine Ketones (Negative) Urine Blood (Negative) Urine RBC (0-5) /hpf Urine Mucus (None) /hpf Assessment and Plan Assessment: Impression: Acute CVA with aphasia and right-sided weakness Bilaterally nonocclusive coronary artery disease History of previous CVA COPD, presently inactive. Failed swallow evaluation [id number] smoking history Severe peripheral vessel occlusive disease Hypertension Dyslipidemia Recommendation: Continue present supportive care measures as recommended by neurology Continue GI and DVT prophylaxis Patient will need physical therapy, occupational therapy We will likely transfer out of the ICU if agreeable with neurology We will continue to follow. Time with Patient: Less than 30
--- NOTE | 2022-08-07 12:41 | CA ---
Transthoracic Echo Report Name: Ernie Leonard Age: 82 Gender: M : 1940 Exam Date: 08/07/2022 08:05 Exam Location: [place] [facility] Ht (in): 62 Wt (lb): 101 Ordering Physician: Dimitry Gomez MD Attending/Referring Phys: Cellular Equipment Repairer Madina Brandt RDCS Procedure CPT: Indications: CVA Cardiac Hx: Technical Quality: Good Contrast 1: Total Dose (mL): Contrast 2: Total Dose (mL): MEASUREMENTS (Male / Female) Normal Values 2D ECHO LV Diastolic Diameter PLAX 3.5 cm 4.2 - 5.9 / 3.9 - 5.3 cm LV Systolic Diameter PLAX 1.7 cm IVS Diastolic Thickness 0.8 cm 0.6 - 1.0 / 0.6 - 0.9 cm LVPW Diastolic Thickness 1.1 cm 0.6 - 1.0 / 0.6 - 0.9 cm LV Relative Wall Thickness 0.5 RV Internal Dim ED PLAX 2.7 cm LA Systolic Diameter LX 3.2 cm 3.0 - 4.0 / 2.7 - 3.8 cm M-MODE Aortic Root Diameter MM 2.9 cm MV E Point Septal Separation 1.9 cm AV Cusp Separation MM 1.4 cm DOPPLER AV Peak Velocity 132.7 cm/s AV Peak Gradient 7.0 mmHg MV Area PHT 2.3 cm??? Mitral E Point Velocity 65.9 cm/s Mitral A Point Velocity 99.3 cm/s Mitral E to A Ratio 0.7 MV Deceleration Time 324.1 ms MV E' Velocity 3.3 cm/s Mitral E to MV E' Ratio 19.8 TR Peak Velocity 207.8 cm/s TR Peak Gradient 17.3 mmHg Right Ventricular Systolic Press 22.3 mmHg FINDINGS Left Ventricle Left ventricular ejection fraction is estimated at 55-60 %. Small left ventricular cavity. Left ventricular wall thickness normal. Right Ventricle Normal right ventricular size and function. Right ventricular systolic pressure within normal limits. Right Atrium Normal right atrial size. Negative agitated saline bubble study for right to left shunt. Left Atrium Normal left atrial size. No evidence for an atrial septal defect. Mitral Valve Structurally normal mitral valve. Aortic Valve Trileaflet aortic valve. Focal thickening of the aortic valve cusps. Tricuspid Valve Structurally normal tricuspid valve. Trace to mild tricuspid regurgitation. Pulmonic Valve Pulmonic valve not well visualized. Pericardium Normal pericardium. No pericardial effusion. Aorta Normal size aortic root and proximal ascending aorta. CONCLUSIONS Normal left ventricular systolic function Previewed by: Dr. Richie Rueda MD (Electronically Signed) Final Date: 07 August 2022 12:40
[2022-08-07] MEDS ORDERED: METOPROLOL TARTRATE 12.5 MG TAB PO STA (13:22)
--- NOTE | 2022-08-07 13:26 | P.PN ---
Progress Note - Text Progress Note Date: 08/07/22 Chief Complaint: Found on the floor This is a pleasant 82-year-old patient follows with visiting physicians Dr. Tejada. Chronic stable medical conditions include COPD, hypertension, hyperlipidemia, PAD prior strokes and infarcts, cognitive impairment, smoker, lives in assisted living. Accompanied by son and daughter in the ICU today.. Patient lives of [facility]. EMS arrived to find the patient in the hallway supine on the floor, just outside his door residence. Patient's son who arrived found that the speech was also different. There was some right-sided facial droop noted. Along with drooling. In the ER stroke scale with EMS was negative. Patient was reported to be normal at 11 AM was about 4 hours and 40 minutes prior to arrival as per the ER notes. Patient bit of the ICU/maintenance journeyman consulted. In addition to neurologist. This morning patient speech remains slow. Applesauce being tried. Right-sided weakness both the arm and the leg. No change in vision. No headache. 08/07/2022: ICU. No worsening from yesterday neuro symptoms. Speech slurred. On pured diet. Weakness in the right arm greater than right leg. Seen by speech. Stroke confirmed left basal ganglia area. no code. Spoke to patient's other son at the bedside. Looking at rehab. Active Medications Acetaminophen (Acetaminophen Tab 325 Mg Tab) 650 mg PO Q6HR PRN PRN Reason: Mild Pain or Fever > 100.5 Albuterol/Ipratropium (Ipratropium-Albuterol 3 Ml Neb) 3 ml INHALATION RT-TID [facility] Last Admin: 08/07/22 12:29 Dose: Not Given Aspirin (Aspirin 81 Mg) 81 mg PO DAILY [facility] Last Admin: 08/07/22 08:10 Dose: 81 mg Atorvastatin Calcium (Atorvastatin 80 Mg Tab) 80 mg PO HS [facility] Last Admin: 08/06/22 20:04 Dose: 80 mg Calcium Carbonate/Glycine (Calcium Carbonate 500 Mg Chewable) 1,000 mg PO Q4HR PRN PRN Reason: Dyspepsia Enoxaparin Sodium (Enoxaparin 40 Mg/0.4 Ml Syringe) 40 mg SQ DAILY [facility] Last Admin: 08/07/22 08:10 Dose: 40 mg Furosemide (Furosemide 10 Mg/Ml 4 Ml Vial) 40 mg IV DAILY [facility] Last Admin: 08/07/22 08:10 Dose: 40 mg Sodium Chloride (Saline 0.9%) 1,000 mls @ 10 mls/hr IV .Q24H [facility] Last Admin: 08/07/22 10:01 Dose: 75 mls/hr Lactulose (Lactulose 20 Gm/30 Ml Cup) 20 gm PO DAILY PRN PRN Reason: Constipation Lorazepam (Lorazepam 0.5 Mg Tab) 0.5 mg PO Q6HR PRN PRN Reason: Anxiety Melatonin (Melatonin 3 Mg Tablet) 3 mg PO HS PRN PRN Reason: Insomnia Miscellaneous Information (Potassium Replacement Protocol 1 Each Misc) 1 each MISCELLANE DAILY PRN; Protocol PRN Reason: Per Protocol Naloxone HCl (Naloxone 0.4 Mg/Ml 1 Ml Vial) 0.2 mg IV Q2M PRN PRN Reason: Opioid Reversal Nicotine (Nicotine 21mg/24hr Patch) 1 patch TRANSDERM DAILY [facility] Last Admin: 08/07/22 08:10 Dose: 1 patch Ondansetron HCl (Ondansetron 4 Mg/2 Ml Vial) 4 mg IVP Q8HR PRN PRN Reason: Nausea And Vomiting Pantoprazole Sodium (Pantoprazole 40 Mg Tablet) 40 mg PO AC-BRKFST [facility] Ticagrelor (Ticagrelor 90 Mg Tab) 90 mg PO BID [facility] Last Admin: 08/07/22 08:10 Dose: 90 mg Past medical history to include: COPD, hypertension, hyperlipidemia, PAD, prior CVA including the left parietal lobe and other lacunar infarcts including the left thalamus and internal capsule. Social history: Patient supposed use a walker but does not use one. Lives of [employer]. Smoking a pack a day for close to 70 years. Alcohol occasionally. Physical examination: VITAL SIGNS: 97.8, 82, 19, 1 39 x 76, 96% on 2 L GENERAL: declining with awake, comfortable EYES: Pupils equal. Conjunctiva normal. HEENT: External appearance of nose and ears normal, oral cavity grossly normal. NECK: JVD not raised; masses not palpable. HEART: First and second heart sounds are normal; no edema. LUNGS:[ Respiratory rate increased, diminished breath sounds. ABDOMEN: Soft, nontender, liver spleen not palpable, no masses palpable. PSYCH: Patient able tonsil simple questions, more affect anxiousl. MUSCULOSKELETAL:No Clubbing/cyanosis;muscles-grossly intact evidence of OA NEUROLOGICAL: mouth pulled to the left, with speech slurred, power in the right arm 1/5, power in the right leg 3/5. Reflexes increased on the right side. Upgoing Babinski on the right side. INVESTIGATIONS, reviewed in the clinical context: 2-D echocardiogram: EF 55-60%. MRI brain: Left basal ganglia infarct. WBC 8.3 hemoglobin 13 platelets 315 progression 3.9 creatinine 0.98 Troponin I 0.[address] brain: Old left-sided infarct. Cerebral atrophy. No change from before CT angiogram head and neck: Mild plate formation of the carotid artery bifurcation. Not otherwise. EKG tracing personally reviewed by me-normal sinus rhythm Chest x-ray film personally reviewed by me-possible chronic changes Assessment and plan: -Acute stroke in the left basal ganglia, affecting speech and right arm right leg . Aspirin, Brillinta, Lipitor. PTOT. She is therapy. 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 -COPD, in a current smoker DuoNeb 3 times a day -Essential hypertension Lopressor 25 mg twice a day -Hyperlipidemia Lipitor -Chronic nicotine dependence, cigarette smoker Nicotine patch 21 -Acute dysarthria secondary to stroke Speech therapy. -PAD Aspirin, Lipitor -Pharyngeal dysphagia. , Secondary to stroke Seen by speech therapy. Pured diet with nectar thick liquids. One is to 1 assist. Medications crushed.. -DO NOT RESUSCITATE Aspirin, Brillinta, Lipitor. PTOT. Speech Therapy..pureed diet, nectar thick liquid. Consult Dr. Irwin. Looking disposition to rehab in 24-48 hours.
--- NOTE | 2022-08-07 13:40 | P.CONS ---
History of Present Illness - Chief Complaint Gait disturbance, right hemiparesthesias - History of Present Illness I had the opportunity to see patient for inpatient rehab consultation for regard to gait disturbance. Patient admitted Dr. Duran August 05 with shortness of breath found to have right-sided weakness and facial weakness including drooling. Seen by Dr. Blanca for ICU care. She may neurology, Dr. Gomez for the stroke. Initial head CT demonstrated only old left infarct and cerebral a trophy. Angiogram CT negative. Chest x-ray negative. Brain MRI with infarcts or diffusion changes left basal ganglia, with old left internal capsule and left frontal infarcts. PT, OT, JIG BUILDER all prescribed. Previous functional history as elicited patient and nurse: 82-year-old right- handed white male who is but currently resides at [facility]. Poor historian. Review of Systems Review of systems: ENT: Denies sneezes or discharge. Eyes: Denies discharge or photophobia. Cardiac: Denies chest pain or palpitation. Pulmonary: Denies cough or shortness of breath. Gastrointestinal: Denies nausea, emesis, constipation, diarrhea. Genitourinary: Denies discharge or frequency. Musculoskeletal: Denies muscle or bone aches. Neurologic: Speech disturbance and right-sided weakness and numbness. Endocrine: Denies shakes or sweats. Oncology: Denies cancers. Dermatologic: Denies rash, itching, pruritus. ALLERGY/immunology: Denies sneezes, rashes. 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 History of Any Multi-Drug Resistant Organisms: None Reported Past Surgical History: No Surgical Hx Reported Additional Past Surgical History / Comment(s): Fem-fem bypass at [facility] Past Anesthesia/Blood Transfusion Reactions: No Reported Reaction Past Psychological History: No Psychological Hx Reported Smoking Status: Current every day smoker Past Alcohol Use History: None Reported Past Drug Use History: None Reported - Past Family History Father History Unknown: Yes Additional Family Medical History / Comment(s): Father at age 93 from old age. Mother Family Medical History: CVA/TIA Additional Family Medical History / Comment(s): Mother in her 70s. Unknown cause. Sister(s) Additional Family Medical History / Comment(s): Patient has 4 sisters and 2 from motor vehicle accident. Patient has one son that suffers from alcohol abuse. Patient has 2 daughters and one has from a brain aneurysm. Medications and Allergies Home Medications Medication Instructions Recorded Confirmed Type No Known Home Medications 08/05/22 08/05/22 History Allergies Allergy/AdvReac Type Severity Reaction Status Date / Time No Known Allergies Allergy Verified 08/05/22 16:05 Physical Exam Vitals: Vital Signs Temp Pulse Resp BP Pulse Ox FiO2 08/07/22 12:00 97.8 F 82 19 139/76 96 08/07/22 11:00 79 23 117/66 95 08/07/22 10:00 88 19 154/70 92 L 08/07/22 09:00 82 17 135/67 96 08/07/22 08:43 86 08/07/22 08:34 85 08/07/22 08:00 97.5 F L 79 16 153/81 97 08/07/22 07:00 90 17 146/67 95 08/07/22 06:00 86 21 149/82 95 08/07/22 05:00 82 18 148/78 93 L 08/07/22 04:00 98.2 F 89 20 149/80 94 L 08/07/22 03:00 93 18 157/71 93 L 08/07/22 02:00 93 21 165/82 94 L 08/07/22 01:00 93 19 153/84 96 08/07/22 00:16 98 17 153/84 93 L 08/07/22 00:00 95 18 144/82 94 L 08/06/22 23:00 98.4 F 92 19 138/83 95 08/06/22 22:00 98 18 164/78 96 08/06/22 21:00 102 H 16 153/72 94 L 08/06/22 20:00 98.5 F 100 19 168/79 94 L 08/06/22 19:05 87 08/06/22 19:00 91 18 162/74 98 08/06/22 18:51 85 08/06/22 18:45 92 L 08/06/22 18:00 84 15 179/88 97 08/06/22 17:33 92 L 70 08/06/22 17:00 93 16 185/79 97 08/06/22 16:00 98.2 F 87 18 166/88 96 08/06/22 15:00 85 17 177/89 96 08/06/22 14:00 94 18 186/80 96 Intake and Output 08/06/22 08/07/22 08/07/22 22:59 06:59 14:59 Intake Total 2620 720 550 Output Total 2362 980 580 Balance 258 -260 -30 Intake: IV 2620 620 450 Invasive Line 1 20 20 Sodium Chloride 0.9% 1, 600 600 450 000 ml @ 75 mls/hr IV . [id number] [facility] Rx#:[id number] Sodium Chloride 0.9% 2, 2000 000 ml @ 999 mls/hr IV . Q2H1M [facility] Rx#:[id number] Intake, IV Titration 100 100 Amount Potassium Chloride 10 meq 100 100 In Water For Injection 1 100ml.bag @ 100 mls/hr IVPB Q1H [facility] Rx#: [id number] Output: Urine 2362 980 580 Other: Voiding Method Indwelling Catheter Indwelling Catheter Indwelling Catheter Weight 48.2 kg 48.2 kg Skin: Atrophic, intact. General: Thin build and comfortable appearance. Head: Normocephalic, atraumatic. Eyes: Symmetric. Pupils equal round. Ears: Symmetric. Hearing within normal limits. Mouth: Clear. Neck: Supple. Carotid without bruit. Cardiac: Regular rate and rhythm. Lungs: Clear anteriorly and posteriorly. Abdomen: Soft active nontender. Extremities: Normal tone. Neurological: Mental status: Has difficulty answering biographical questions. Cranial nerves: Symmetric facial tone and trapezius. Motor: Active movement left side. Right arm and right leg poor. Sensation: Intact left side and diminished right-sided. DTRs: Symmetric and equal throughout. Mobility: Requires physical assist for any bed mobility. Results CBC & Chem 7: 08/07/22 03:57 08/07/22 03:57 Labs: Abnormal Lab Results - Last 24 Hours (Table) 08/06/22 08/07/22 08/07/22 Range/Units 03:28 03:57 03:57 Neutrophils # 7.9 H (1.3-7.7) k/uL Calcium 8.1 L (8.4-10.2) mg/dL Cholesterol 215.00 H (0.00-200.00) mg/dL LDL Cholesterol, Calc 152.5 H (0.0-131.0) mg/dL Assessment and Plan (1) CVA (cerebral vascular accident) Current Visit: Yes Status: Acute Code(s): I63.9 - CEREBRAL INFARCTION, UNSPECIFIED SNOMED Code(s): 212918101 (2) NAYA (acute kidney injury) Current Visit: No Status: Acute Code(s): N17.9 - ACUTE KIDNEY FAILURE, UNSPECIFIED SNOMED Code(s): 45205074 (3) Acute dehydration Current Visit: No Status: Acute Code(s): E86.0 - DEHYDRATION SNOMED Code(s): 71310220 (4) COPD exacerbation Current Visit: No Status: Acute Code(s): J44.1 - CHRONIC OBSTRUCTIVE PULMONARY DISEASE W (ACUTE) EXACERBATION SNOMED Code(s): 968975475 Plan: Comments and plan: Patient's main diagnoses gait disturbance related to stroke result in right hemiparesthesias and aphasia. At this time safety concerns are noted. Therapies prescribed and will follow closely with yourself. Currently unsure how well patient can tolerate them.
[2022-08-07] MEDS: ATORVASTATIN 80 MG TAB PO SCH (21:31)
[2022-08-07] MEDS: METOPROLOL TARTRATE 25 MG TAB PO SCH (21:32)
[2022-08-08] MEDS: IPRATROPIUM-ALBUTEROL 3 ML NEB INHALATION SCH ×3 (07:20→19:35)
[2022-08-08] MEDS: TICAGRELOR 90 MG TAB PO SCH ×2 (08:26→21:09)
[2022-08-08] MEDS: NICOTINE 21MG/24HR PATCH TRANSDERM SCH (08:26)
[2022-08-08] MEDS: ASPIRIN 81 MG PO SCH (08:26)
[2022-08-08] MEDS: PANTOPRAZOLE 40 MG TABLET PO SCH (08:26)
[2022-08-08] MEDS: ENOXAPARIN 40 MG/0.4 ML SYRINGE SQ SCH (08:26)
--- NOTE | 2022-08-08 08:33 | P.PN ---
Subjective Progress Note Date: 08/07/22 Patient was seen for a follow-up. Patient's family members were not present today. Patient is essentially unchanged. Telemetry monitoring showing no A. fib. Patient can move right leg but right arm continues to be very weak. Patient denies any headache, no dizziness. No new symptoms. Patient has slight cough. Patient able to take medications with applesauce. Objective - Vital Signs Vital signs: Vital Signs Temp 97.5 F L 08/07/22 08:00 Pulse 88 08/07/22 10:00 Resp 19 08/07/22 10:00 BP 154/70 08/07/22 10:00 Pulse Ox 92 L 08/07/22 10:00 FiO2 70 08/06/22 17:33 Intake & Output 08/06/22 08/07/22 08/07/22 18:59 06:59 18:59 Intake Total 2855 1030 400 Output Total 717 3055 315 Balance 2137 -2024 85 Weight 48.2 kg Intake: IV 2855 930 300 Invasive Line 1 30 30 Sodium Chloride 0.9% 1, 825 900 300 000 ml @ 75 mls/hr IV . [id number] [facility] Rx#:[id number] Sodium Chloride 0.9% 2, 2000 000 ml @ 999 mls/hr IV . Q2H1M [facility] Rx#:[id number] Intake, IV Titration 100 100 Amount Potassium Chloride 10 meq 100 100 In Water For Injection 1 100ml.bag @ 100 mls/hr IVPB Q1H [facility] Rx#: [id number] Output: Urine 717 3055 315 Stool 0 Emesis 0 Other: Voiding Method Indwelling Catheter Indwelling Catheter Indwelling Catheter # Voids 0 # Bowel Movements 0 - Exam Patient is alert and awake in no distress. Speech is at least moderately dysarthric. Patient can name and repeat objects. Language functions are intact. Patient has right facial weakness, central type, moderate. Visual vazquez are full with no neglect. Extraocular muscles are intact. Tongue deviates slightly to the right. Muscle strength is normal in the left arm and left leg. On the right side, patient has only 2 at the multiple pressure riveter operator. No movement proximally. Patient not able to hold the leg straight up and it droops down. Ankle dorsiflexion is 4+5-. Sensory to touch is decreased in the right arm as compared to the left. Cannot check [id number]-jo-[id number] testing or [id number]-[id number] on the right. Tone and bulk of muscles normal. - Labs CBC & Chem 7: 08/07/22 03:57 08/07/22 03:57 Labs: Abnormal Lab Results - Last 24 Hours (Table) 08/06/22 08/06/22 08/07/22 Range/Units 03:28 12:08 03:57 Neutrophils # 7.9 H (1.3-7.7) k/uL Calcium (8.4-10.2) mg/dL Cholesterol 215.00 H (0.00-200.00) mg/dL LDL Cholesterol, Calc 152.5 H (0.0-131.0) mg/dL Ur Specific Bradford 1.037 H (1.001-1.035) Urine Protein Trace H (Negative) Urine Ketones 1+ H (Negative) Urine Blood Trace H (Negative) Urine RBC 10 H (0-5) /hpf Urine Mucus Rare H (None) /hpf 08/07/22 Range/Units 03:57 Neutrophils # (1.3-7.7) k/uL Calcium 8.1 L (8.4-10.2) mg/dL Cholesterol (0.00-200.00) mg/dL LDL Cholesterol, Calc (0.0-131.0) mg/dL Ur Specific Bradford (1.001-1.035) Urine Protein (Negative) Urine Ketones (Negative) Urine Blood (Negative) Urine RBC (0-5) /hpf Urine Mucus (None) /hpf Assessment and Plan Assessment: * Acute ischemic stroke, with right hemiparesis. MRI revealed acute infarct involving the left basal ganglia and adjacent periventricular white matter. Patient did not receive TPA. No LVO noted on CTA of head and neck. * Dysphagia, due to above * Hypertension * Hyperlipidemia * Chronic heavy tobacco use * History of subacute stroke in November 2021. * Noncompliant with medication Plan: * Patient is clinically not improved as compared to yesterday. * MRI of the brain revealed acute infarct involving the left basal ganglia and adjacent periventricular white matter * CTA of head and neck did not show any significant intracranial or extracranial stenosis. No LVO. * 2-D echo revealed normal left ventricular systolic function. Left atrial size is normal. No evidence for an atrial septal defect. EF is normal 55-60%. Small left ventricular cavity. * Fasting lipid panel with cholesterol 215, LDL 152, HDL 47 triglycerides 77. Continue Lipitor 80 mg daily. * Hemoglobin A1c 5.8 on 11/08/2021. * Continue aspirin 81 mg daily and Brilinta 90 mg twice a day. * Permissive hypertension for 24-48 hours. Do not treat blood pressure unless > 220/120. * DVT prophylaxis: Patient on Lovenox 40 mg subcu daily. Patient also on Protonix for gastric ulcer prophylaxis. * PT OT, speech therapy recommended initiation of dysphagia 1 (pure) textured diet.
[2022-08-08] MEDS: SODIUM CHLORIDE 0.9% 1,000 ML IV SCH (09:18)
[2022-08-08] MEDS: METOPROLOL TARTRATE 25 MG TAB PO SCH (10:50)
--- NOTE | 2022-08-08 10:51 | P.PN ---
Subjective Progress Note Date: 08/08/22 Principal diagnosis: Acute CVA Male patient with known history of COPD, hypertension, hyperlipidemia, peripheral vascular disease and previous history of fem-fem bypass surgery and the patient is a chronic smoker who lives in an assisted living. The patient has a previous history of CVA also. 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 He was treated and he was discharged to subacute rehabilitation at [facility] and following that to assisted living. He was taking Plavix 75 mg by mouth daily on outpatient basis. The patient came into the hospital yesterday and he was found down in the hallway of his [facility] home. When he arrived to our ED, the patient had a right facial droop and right-sided weakness involving the right upper and right lower extremity. He was confused and aphasic. The patient was unable to provide any history in the emergency department. He was last seen normal at around 11 AM and he was outside the window for thrombolytics. Based on that, no thrombus 6 was done and the patient was admitted to the hospital. The cardiac rhythm is sinus. He is hemodynamically stable. His initial CAT scan of the brain that was done in the emergency department showed old left-sided infarct and cerebral atrophy. The patient also had an old lacunar infarct. This involved the left thalamus and old infarct in the internal capsule. There was also an old frontoparietal infarct. The CT angiogram was also done in the same setting and the patient was found to have mild plaque formation of the carotids and there was no evidence of any intracerebral artery stenosis. As such, the patient was not given any thrombolytics. He was admitted to the intensive care unit. His chest x-ray showed no acute abnormalities. He is white cell cause of 8.3 with a hemoglobin of 15. Rest of the blood work and electrodes are normal. Troponins at 0.03 and a proBNP level is not elevated and the morning blood sugars at 83. D-dimer was at 1.16 6. He is currently resting comfortably in bed. No further neurologic decompensation since yesterday. Reevaluated today on 08/07/22, patient remains in the ICU, he has significant aphasia and he has right-sided weakness, however patient is not in any form of pulmonary distress. Patient is on 2 L, FiO2 is 96%. Again the patient does not seem to be in any distress. His WBC count is 10.5 hemoglobin is 13.7. Electrolytes are normal renal profile showed a pO2 of 60 and creatinine 1.23. Patient was seen by neurology yesterday. [facility] that the patient had an acute ischemic stroke, did not feel that the patient was a candidate for TPA. And the recommendation is to have MRI which was done, and the findings were noted by the neurologist. The recommendation is to continue permissive hypertension. And PTT prophylaxis, continue Lovenox, continue Protonix, continue PTOT and speech therapy, Reevaluated today on 08/08/22, patient remains in the ICU as an overflow, he is on 2 L nasal cannula, O2 sat is 97%, patient was seen by Dr. Lin, and he is be ing considered for rehab. Overall clinically the patient is about the same, not much of a change since the last 24 hours CBC is relatively normal elect lites are normal renal profile is abnormal with a creatinine 1.23 these labs were actually from yesterday Objective - Vital Signs Vital signs: Vital Signs Temp 97.5 F L 08/08/22 07:00 Pulse 77 08/08/22 09:00 Resp 16 08/08/22 09:00 BP 137/60 08/08/22 09:00 Pulse Ox 97 08/08/22 09:00 FiO2 70 08/06/22 17:33 Intake & Output 08/07/22 08/08/22 08/08/22 18:59 06:59 18:59 Intake Total 610 120 Output Total 1165 400 Balance -555 -280 Weight 48.2 kg 45.8 kg Intake: IV 510 120 Sodium Chloride 0.9% 1, 510 120 000 ml @ 10 mls/hr IV . Q24H [facility] Rx#:[id number] Intake, IV Titration 100 Amount Potassium Chloride 10 meq 100 In Water For Injection 1 100ml.bag @ 100 mls/hr IVPB Q1H [facility] Rx#: [id number] Output: Urine 1165 400 Other: Voiding Method Indwelling Catheter Indwelling Catheter Urinal - Exam GENERAL EXAM: Alert, very pleasant, on 2 L nasal cannula HEAD: Normocephalic/atraumatic. HEENT: PERRLA, EOMI, anicteric, patient has aphasic CHEST: No chest wall deformity. Symmetrical expansion. LUNGS: Equal air entry with basilar crackles, no wheeze, rhonchi or dullness. CVS: Regular rate and rhythm, normal S1 and S2, no gallops, no murmurs, no rubs ABDOMEN: Soft, nontender. No hepatosplenomegaly, normal bowel sounds, no guarding or rigidity. EXTREMITIES: No clubbing, no edema, no cyanosis, 2+ pulses and upper and lower extremities. MUSCULOSKELETAL: Muscle strength and tone normal. SKIN: No rashes CENTRAL NERVOUS SYSTEM: Unable to communicate, aphasic, following simple commands, right-sided paralysis as noted involving the right upper extremity and right lower extremities. - Labs CBC & Chem 7: 08/07/22 03:57 08/07/22 03:57 Assessment and Plan Assessment: Impression: Acute CVA with aphasia and right-sided weakness Bilaterally nonocclusive coronary artery disease History of previous CVA COPD, presently inactive. Failed swallow evaluation [id number] smoking history Severe peripheral vessel occlusive disease Hypertension Dyslipidemia Recommendation: Agree with rehab referral. Patient could be transferred out of the ICU once a bed is available on the regular medical floor. Continue present supportive care measures Continue GI and DVT prophylaxis Patient will need physical therapy, occupational therapy Will follow as needed Time with Patient: Less than 30
--- NOTE | 2022-08-08 12:50 | FL ---
EXAMINATION TYPE: FL barium swallow w video DATE OF EXAM: 08/08/2022 COMPARISON: NONE HISTORY: Abnormal bedside TECHNIQUE: Fluoroscopy. FINDINGS: Fluoroscopic guidance was provided for the procedure performed in conjunction with the [facility] pathology department. Please see complete report forthcoming from the Speech Pathology departmen t. Various consistencies from thin liquid to solids were administered. Fluoroscopy time 2 minutes 39 seconds. Number of images: 0. No aspiration was evident. There is transient penetration with thin liquids with a straw. Thin liquid s by cup. Mild pooling was observed in the vallecula. Mild hesitancy of bolus formation with more delayed mastication. IMPRESSION: 1. Transient penetration with thin liquids with straw. 2. No aspiration or penetration otherwise evident exam. 3. Fluid within the vallecula. 4. Hesitancy of bolus formation
--- NOTE | 2022-08-08 13:46 | P.PN ---
Subjective Progress Note Date: 08/08/22 Patient was seen for a follow-up. Patient's family members were not present today. Patient is definitely improved today. Per nursing report, patient worked with physical therapy and stood up on the side of the bed. His speech continues to be quite dysarthric. Patient's right leg has improved. Able to move his right hand a little. Patient denies any headache, no dizziness. No new symptoms. Objective - Vital Signs Vital signs: Vital Signs Temp 97.5 F L 08/08/22 07:00 Pulse 93 08/08/22 13:00 Resp 20 08/08/22 13:00 BP 152/71 08/08/22 13:00 Pulse Ox 97 08/08/22 11:00 FiO2 70 08/06/22 17:33 Intake & Output 08/07/22 08/08/22 08/08/22 18:59 06:59 18:59 Intake Total 610 120 Output Total 1165 400 Balance -555 -280 Weight 48.2 kg 45.8 kg Intake: IV 510 120 Sodium Chloride 0.9% 1, 510 120 000 ml @ 10 mls/hr IV . Q24H [facility] Rx#:[id number] Intake, IV Titration 100 Amount Potassium Chloride 10 meq 100 In Water For Injection 1 100ml.bag @ 100 mls/hr IVPB Q1H [facility] Rx#: [id number] Output: Urine 1165 400 Other: Voiding Method Indwelling Catheter Indwelling Catheter Urinal - Exam Patient is alert and awake in no distress. Speech is at least moderately dysarthric. Patient can name and repeat objects. Language functions are intact, although he has significant expressive dysphasia. Patient has right facial weakness, central type, moderate. Visual vazquez are full with no neglect. Extraocular muscles are intact. Tongue deviates slightly to the right. Muscle strength is normal in the left arm and left leg. On the right side, patient has 2+3 at the human resources services specialist. No movement proximally. Patient able to hold his right leg off the bed, and hip flexion is 4+, ankle dorsiflexion 5. Sensory to touch is decreased in the right arm as compared to the left. Cannot check qafj-rf-ngbl testing or [id number]-yn-bvfj on the right. Tone is decreased in the right upper limb and bulk of muscles normal. - Labs CBC & Chem 7: 08/07/22 03:57 08/07/22 03:57 Assessment and Plan Assessment: * Acute ischemic stroke, with right hemiparesis. MRI revealed acute infarct involving the left basal ganglia and adjacent periventricular white matter. Patient did not receive TPA. No LVO noted on CTA of head and neck. * Dysphagia, due to above * Hypertension * Hyperlipidemia * Chronic heavy tobacco use * History of subacute stroke in November 2021. * Noncompliant with medication Plan: * Patient is clinically improved today as compared to yesterday. His right leg is stronger. Right hand is slightly improved. Still no movement proximally in the right upper extremity. * MRI of the brain revealed acute infarct involving the left basal ganglia and adjacent periventricular white matter * CTA of head and neck did not show any significant intracranial or extracranial stenosis. No LVO. * 2-D echo revealed normal left ventricular systolic function. Left atrial size is normal. No evidence for an atrial septal defect. EF is normal 55-60%. Small left ventricular cavity. * Fasting lipid panel with cholesterol 215, LDL 152, HDL 47 triglycerides 77. C ontinue Lipitor 80 mg daily. * Hemoglobin A1c 5.8 on 11/08/2021. * Continue aspirin 81 mg daily and Brilinta 90 mg twice a day. * Permissive hypertension another 24 hours. Treat if blood pressure > 180/110. * DVT prophylaxis: Patient on Lovenox 40 mg subcu daily. Patient also on Protonix for gastric ulcer prophylaxis. * PT OT, speech therapy following. * Appreciate PMNR input. Patient to be transferred to inpatient rehab soon.
--- NOTE | 2022-08-08 14:28 | P.PN ---
Progress Note - Text Progress Note Date: 08/08/22 Chief Complaint: Found on the floor This is a pleasant 82-year-old patient follows with visiting physicians Dr. Tejada. Chronic stable medical conditions include COPD, hypertension, hyperlipidemia, PAD prior strokes and infarcts, cognitive impairment, smoker, lives in assisted living. Accompanied by son and daughter in the ICU today.. Patient lives of [facility]. EMS arrived to find the patient in the hallway supine on the floor, just outside his door residence. Patient's son who arrived found that the speech was also different. There was some right-sided facial droop noted. Along with drooling. In the ER stroke scale with EMS was negative. Patient was reported to be normal at 11 AM was about 4 hours and 40 minutes prior to arrival as per the ER notes. Patient bit of the ICU/television actor consulted. In addition to neurologist. This morning patient speech remains slow. Applesauce being tried. Right-sided weakness both the arm and the leg. No change in vision. No headache. 08/07/2022: ICU. No worsening from yesterday neuro symptoms. Speech slurred. On pured diet. Weakness in the right arm greater than right leg. Seen by speech. Stroke confirmed left basal ganglia area. no code. Spoke to patient's other son at the bedside. Looking at rehab. July: Oral fluid ICU. Some improvement in weakness in the right leg. Modified barium swallow today. Change to ground diet. Lopressor held because of blood pressure control without the same. Spoke to the son at the bedside. Looking at inpatient rehab tomorrow. Speech still slurred speech. Oral intake fair. Active Medications Acetaminophen (Acetaminophen Tab 325 Mg Tab) 650 mg PO Q6HR PRN PRN Reason: Mild Pain or Fever > 100.5 Albuterol/Ipratropium (Ipratropium-Albuterol 3 Ml Neb) 3 ml INHALATION RT-TID [facility] Last Admin: 08/08/22 11:31 Dose: Not Given Aspirin (Aspirin 81 Mg) 81 mg PO DAILY [facility] Last Admin: 08/08/22 08:26 Dose: 81 mg Atorvastatin Calcium (Atorvastatin 80 Mg Tab) 80 mg PO HS [facility] Last Admin: 08/07/22 21:31 Dose: 80 mg Calcium Carbonate/Glycine (Calcium Carbonate 500 Mg Chewable) 1,000 mg PO Q4HR PRN PRN Reason: Dyspepsia Enoxaparin Sodium (Enoxaparin 40 Mg/0.4 Ml Syringe) 40 mg SQ DAILY [facility] Last Admin: 08/08/22 08:26 Dose: 40 mg Sodium Chloride (Saline 0.9%) 1,000 mls @ 10 mls/hr IV .Q24H [facility] Last Admin: 08/08/22 09:18 Dose: Not Given Lactulose (Lactulose 20 Gm/30 Ml Cup) 20 gm PO DAILY PRN PRN Reason: Constipation Lorazepam (Lorazepam 0.5 Mg Tab) 0.5 mg PO Q6HR PRN PRN Reason: Anxiety Melatonin (Melatonin 3 Mg Tablet) 3 mg PO HS PRN PRN Reason: Insomnia Miscellaneous Information (Potassium Replacement Protocol 1 Each Misc) 1 each MISCELLANE DAILY PRN; Protocol PRN Reason: Per Protocol Naloxone HCl (Naloxone 0.4 Mg/Ml 1 Ml Vial) 0.2 mg IV Q2M PRN PRN Reason: Opioid Reversal Nicotine (Nicotine 21mg/24hr Patch) 1 patch TRANSDERM DAILY [facility] Last Admin: 08/08/22 08:26 Dose: 1 patch Ondansetron HCl (Ondansetron 4 Mg/2 Ml Vial) 4 mg IVP Q8HR PRN PRN Reason: Nausea And Vomiting Pantoprazole Sodium (Pantoprazole 40 Mg Tablet) 40 mg PO AC-BRKFST [facility] Last Admin: 08/08/22 08:26 Dose: 40 mg Ticagrelor (Ticagrelor 90 Mg Tab) 90 mg PO BID [facility] Last Admin: 08/08/22 08:26 Dose: 90 mg Past medical history to include: COPD, hypertension, hyperlipidemia, PAD, prior CVA including the left parietal lobe and other lacunar infarcts including the left thalamus and internal capsule. Social history: Patient supposed use a walker but does not use one. Lives of [employer]. Smoking a pack a day for close to 70 years. Alcohol occasionally. Physical examination: VITAL SIGNS: 97.5, 66, 16, 1 39 x 56, 97% on 2 L GENERAL: Reclining in bed, comfortable EYES: Pupils equal. Conjunctiva normal. HEENT: External appearance of nose and ears normal, oral cavity grossly normal. NECK: JVD not raised; masses not palpable. HEART: First and second heart sounds are normal; no edema. LUNGS:[ Respiratory rate increased, diminished breath sounds. ABDOMEN: Soft, nontender, liver spleen not palpable, no masses palpable. PSYCH: Patient able to answer simple questions, mood affect anxiousl. MUSCULOSKELETAL:No Clubbing/cyanosis;muscles-grossly intact evidence of OA NEUROLOGICAL: mouth pulled to the left, with speech slurred, power in the right arm 1/5, power in the right leg 3/5. Reflexes increased on the right side. Upgoing Babinski on the right side. INVESTIGATIONS, reviewed in the clinical context: July: WBC 10.5 globin 13.5 platelets 340 potassium 3.7 creatinine 1.23 Urine drug screen: Negative 2-D echocardiogram: EF 55-60%. MRI brain: Left basal ganglia infarct. WBC 8.3 hemoglobin 13 platelets 315 progression 3.9 creatinine 0.98 Troponin I 0.[address] brain: Old left-sided infarct. Cerebral atrophy. No change from before CT angiogram head and neck: Mild plate formation of the carotid artery bifurcation. Not otherwise. EKG tracing personally reviewed by me-normal sinus rhythm Chest x-ray film personally reviewed by me-possible chronic changes Assessment and plan: -Acute stroke in the left basal ganglia, affecting speech and right arm right leg . Aspirin, Brillinta, Lipitor. PTOT. 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 -COPD, in a current smoker DuoNeb 3 times a day -Essential hypertension Lopressor 25 mg twice a day -Hyperlipidemia Lipitor -Chronic nicotine dependence, cigarette smoker Nicotine patch 21 -Acute dysarthria secondary to stroke Speech therapy. -PAD Aspirin, Lipitor -Pharyngeal dysphagia. , Secondary to stroke Seen by speech therapy. Ground diet with nectar thick liquids. One is to 1 assist. Medications crushed.. -DO NOT RESUSCITATE Continue current treatment plan. Discussed with the patient's son at the [facility]. Looking to go to rehab tomorrow.
--- NOTE | 2022-08-08 15:24 | CDI ---
Documentation Clarification Form Date: 08/08/2022 03:10:30 PM From: Marisa Sanchez RN CCDS Admit Date: 08/05/2022 07:41:00 PM Patient Name: Ernie Leonard Visit Number: [id number] Discharge Date: ATTENTION: The Clinical Documentation Specialists (CDI) and [facility] Coding Staff appreciate your assistance in clarifying documentation. Please respond to the clarification below the line at the bottom and electronically sign. The CDI & [facility] Coding staff will review the response and follow-up if needed. Please note: Queries are made part of the Legal Health Record. If you have any questions, please contact the author of this message via ITS. Dr. Aram Duran The Registered Dietitian assessment on 08/07 indicates this patient meets criteria for Severe malnutrition. Based on this information and the findings below, is there an additional diagnosis that is clinically appropriate for this patient? History/Risk Factors: 82-year-old male presents to the ED via EMS after being found on the floor at the assisted living. The patient has right sided facial droop noted with drooling. Medical History: prior strokes, COPD, HTN, cognitive impairment and smoker. 08/06, H&P. Clinical Indicators: RD Consult Assessment: Severe malnutrition see below Current BMI: 19.4kg; weight by bed scale 48.2kg Hght 5ft 2in Calculated ideal body weight 53.524kg Estimated needs in Kcal 1036; Estimated Needs in protein 64 grams/day Nutritional Diagnosis: Severe malnutrition Related to: likely weight loss of UBW > 1year 2/2 catabolic disease As evidenced by: Severe fat and muscle depletion. Buccal fat pads, temporalis muscle and interosseous muscle. : Treatment: Texture modified diet, monitor po, Monitor NPO status and tolerance to diet advancement. Dietary Consult: see above Lab monitoring: Chemistry Is there an additional diagnosis that is clinically appropriate for this patient? [ ] Severe Protein-Calorie Malnutrition [ ] Other condition, please specify [ ] Unable to Determine (Template Last Revised: November 2020) Severe protein calorie malnutrition MTDD
[2022-08-08] MEDS: ATORVASTATIN 80 MG TAB PO SCH (21:09)
[2022-08-09] MEDS: PANTOPRAZOLE 40 MG TABLET PO SCH (07:05)
[2022-08-09] MEDS: IPRATROPIUM-ALBUTEROL 3 ML NEB INHALATION SCH ×3 (08:29→20:27)
[2022-08-09] MEDS: ASPIRIN 81 MG PO SCH (09:44)
[2022-08-09] MEDS: TICAGRELOR 90 MG TAB PO SCH ×2 (09:45→21:32)
[2022-08-09] MEDS: ENOXAPARIN 40 MG/0.4 ML SYRINGE SQ SCH (09:45)
[2022-08-09] MEDS: NICOTINE 21MG/24HR PATCH TRANSDERM SCH (09:45)
--- NOTE | 2022-08-09 11:42 | P.PN ---
Subjective Progress Note Date: 08/09/22 Principal diagnosis: Acute CVA Male patient with known history of COPD, hypertension, hyperlipidemia, peripheral vascular disease and previous history of fem-fem bypass surgery and the patient is a chronic smoker who lives in an assisted living. The patient has a previous history of CVA also. 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 He was treated and he was discharged to subacute rehabilitation at [facility] and following that to assisted living. He was taking Plavix 75 mg by mouth daily on outpatient basis. The patient came into the hospital yesterday and he was found down in the hallway of his long term home. When he arrived to our ED, the patient had a right facial droop and right-sided weakness involving the right upper and right lower extremity. He was confused and aphasic. The patient was unable to provide any history in the emergency department. He was last seen normal at around 11 AM and he was outside the window for thrombolytics. Based on that, no thrombus 6 was done and the patient was admitted to the hospital. The cardiac rhythm is sinus. He is hemodynamically stable. His initial CAT scan of the brain that was done in the emergency department showed old left-sided infarct and cerebral atrophy. The patient also had an old lacunar infarct. This involved the left thalamus and old infarct in the internal capsule. There was also an old frontoparietal infarct. The CT angiogram was also done in the same setting and the patient was found to have mild plaque formation of the carotids and there was no evidence of any intracerebral artery stenosis. As such, the patient was not given any thrombolytics. He was admitted to the intensive care unit. His chest x-ray showed no acute abnormalities. He is white cell cause of 8.3 with a hemoglobin of 15. Rest of the blood work and electrodes are normal. Troponins at 0.03 and a proBNP level is not elevated and the morning blood sugars at 83. D-dimer was at 1.16 6. He is currently resting comfortably in bed. No further neurologic decompensation since yesterday. Reevaluated today on 08/07/22, patient remains in the ICU, he has significant aphasia and he has right-sided weakness, however patient is not in any form of pulmonary distress. Patient is on 2 L, FiO2 is 96%. Again the patient does not seem to be in any distress. His WBC count is 10.5 hemoglobin is 13.7. Electrolytes are normal renal profile showed a pO2 of 60 and creatinine 1.23. Patient was seen by neurology yesterday. [place] that the patient had an acute ischemic stroke, did not feel that the patient was a candidate for TPA. And the recommendation is to have MRI which was done, and the findings were noted by the neurologist. The recommendation is to continue permissive hypertension. And PTT prophylaxis, continue Lovenox, continue Protonix, continue PTOT and speech therapy, Reevaluated today on 08/08/22, patient remains in the ICU as an overflow, he is on 2 L nasal cannula, O2 sat is 97%, patient was seen by Dr. Lin, and he is be ing considered for rehab. Overall clinically the patient is about the same, not much of a change since the last 24 hours CBC is relatively normal elect lites are normal renal profile is abnormal with a creatinine 1.23 these labs were actually from yesterday Reevaluated today on , patient is doing well, no major change control coordinator the last 24 hours, patient is being considered for discharge planning/rehab facility. No active pulmonary issues, patient is on 2 L nasal cannula, no fever no chills no hemoptysis no chest pain. O2 saturation is 98% on 2 L. Labs from today are basically unremarkable. Objective - Vital Signs Vital signs: Vital Signs Temp 97.4 F L 08/09/22 08:00 Pulse 95 08/09/22 08:40 Resp 18 08/09/22 08:00 BP 139/63 08/09/22 08:00 Pulse Ox 98 08/09/22 08:00 FiO2 70 08/06/22 17:33 Intake & Output 08/08/22 08/09/22 08/09/22 18:59 06:59 18:59 Intake Total 110 Output Total 300 Balance -190 Weight 45.5 kg Intake: IV 110 Sodium Chloride 0.9% 1, 110 000 ml @ 10 mls/hr IV . Q24H [facility] Rx#:[id number] Output: Urine 300 Straight 300 Other: Voiding Method Urinal Urinal Urinal # Voids 1 - Exam GENERAL EXAM: Alert, very pleasant, on 2 L nasal cannula, O2 saturations 98% HEAD: Normocephalic/atraumatic. HEENT: PERRLA, EOMI, anicteric, patient has aphasic CHEST: No chest wall deformity. Symmetrical expansion. LUNGS: Equal air entry with basilar crackles, no wheeze, rhonchi or dullness. CVS: Regular rate and rhythm, normal S1 and S2, no gallops, no murmurs, no rubs ABDOMEN: Soft, nontender. No hepatosplenomegaly, normal bowel sounds, no guarding or rigidity. EXTREMITIES: No clubbing, no edema, no cyanosis, 2+ pulses and upper and lower extremities. MUSCULOSKELETAL: Muscle strength and tone normal. SKIN: No rashes CENTRAL NERVOUS SYSTEM: Evidence of aphasia and right-sided weakness - Labs CBC & Chem 7: 08/07/22 03:57 08/07/22 03:57 Assessment and Plan Assessment: Impression: Acute CVA with aphasia and right-sided weakness Bilaterally nonocclusive coronary artery disease History of previous CVA COPD, presently inactive. Failed swallow evaluation [id number] smoking history Severe peripheral vessel occlusive disease Hypertension Dyslipidemia Recommendation: Agree with rehab referral. Continue GI and DVT prophylaxis Patient will need physical therapy, occupational therapy Will follow as needed Time with Patient: Less than 30
[2022-08-09] MEDS: SODIUM CHLORIDE 0.9% 1,000 ML IV SCH (12:25)
[2022-08-09] MEDS ORDERED: TAMSULOSIN 0.4 MG CAP.ER.24H PO STA (12:56)
--- NOTE | 2022-08-09 14:31 | P.PN ---
Progress Note - Text Progress Note Date: 08/09/22 Chief Complaint: Found on the floor This is a pleasant 82-year-old patient follows with visiting physicians Dr. Tejada. Chronic stable medical conditions include COPD, hypertension, hyperlipidemia, PAD prior strokes and infarcts, cognitive impairment, smoker, lives in assisted living. Accompanied by son and daughter in the ICU today.. Patient lives of [facility]. EMS arrived to find the patient in the hallway supine on the floor, just outside his door residence. Patient's son who arrived found that the speech was also different. There was some right-sided facial droop noted. Along with drooling. In the ER stroke scale with EMS was negative. Patient was reported to be normal at 11 AM was about 4 hours and 40 minutes prior to arrival as per the ER notes. Patient bit of the ICU/immunopathologist consulted. In addition to neurologist. This morning patient speech remains slow. Applesauce being tried. Right-sided weakness both the arm and the leg. No change in vision. No headache. 08/07/2022: ICU. No worsening from yesterday neuro symptoms. Speech slurred. On pured diet. Weakness in the right arm greater than right leg. Seen by speech. Stroke confirmed left basal ganglia area. no code. Spoke to patient's other son at the bedside. Looking at rehab. July: Oral fluid ICU. Some improvement in weakness in the right leg. Modified barium swallow today. Change to ground diet. Lopressor held because of blood pressure control without the same. Spoke to the son at the bedside. Looking at inpatient rehab tomorrow. Speech still slurred speech. Oral intake fair. July: Overflow into ICU. Tolerating diet. Clinical status unchanged. Discussed with pillowcase maker. Stable for DC. Pending rehab either at [facility] or [facility]. manager of clinical is working on the same. Discussed with son at the bedside. Discussed with the patient. Add Lopressor 12.5 by mouth twice a day for blood pressure. Active Medications Acetaminophen (Acetaminophen Tab 325 Mg Tab) 650 mg PO Q6HR PRN PRN Reason: Mild Pain or Fever > 100.5 Albuterol/Ipratropium (Ipratropium-Albuterol 3 Ml Neb) 3 ml INHALATION RT-TID [facility] Last Admin: 08/09/22 11:41 Dose: Not Given Aspirin (Aspirin 81 Mg) 81 mg PO DAILY [facility] Last Admin: 08/09/22 09:44 Dose: 81 mg Atorvastatin Calcium (Atorvastatin 80 Mg Tab) 80 mg PO HS [facility] Last Admin: 08/08/22 21:09 Dose: 80 mg Calcium Carbonate/Glycine (Calcium Carbonate 500 Mg Chewable) 1,000 mg PO Q4HR PRN PRN Reason: Dyspepsia Enoxaparin Sodium (Enoxaparin 40 Mg/0.4 Ml Syringe) 40 mg SQ DAILY [facility] Last Admin: 08/09/22 09:45 Dose: 40 mg Sodium Chloride (Saline 0.9%) 1,000 mls @ 10 mls/hr IV .Q24H [facility] Last Admin: 08/09/22 12:25 Dose: Not Given Lactulose (Lactulose 20 Gm/30 Ml Cup) 20 gm PO DAILY PRN PRN Reason: Constipation Lorazepam (Lorazepam 0.5 Mg Tab) 0.5 mg PO Q6HR PRN PRN Reason: Anxiety Melatonin (Melatonin 3 Mg Tablet) 3 mg PO HS PRN PRN Reason: Insomnia Miscellaneous Information (Potassium Replacement Protocol 1 Each Misc) 1 each MISCELLANE DAILY PRN; Protocol PRN Reason: Per Protocol Naloxone HCl (Naloxone 0.4 Mg/Ml 1 Ml Vial) 0.2 mg IV Q2M PRN PRN Reason: Opioid Reversal Nicotine (Nicotine 21mg/24hr Patch) 1 patch TRANSDERM DAILY [facility] Last Admin: 08/09/22 09:45 Dose: 1 patch Ondansetron HCl (Ondansetron 4 Mg/2 Ml Vial) 4 mg IVP Q8HR PRN PRN Reason: Nausea And Vomiting Pantoprazole Sodium (Pantoprazole 40 Mg Tablet) 40 mg PO AC-BRKFST [facility] Last Admin: 08/09/22 07:05 Dose: 40 mg Ticagrelor (Ticagrelor 90 Mg Tab) 90 mg PO BID [facility] Last Admin: 08/09/22 09:45 Dose: 90 mg Past medical history to include: COPD, hypertension, hyperlipidemia, PAD, prior CVA including the left parietal lobe and other lacunar infarcts including the left thalamus and internal capsule. Social history: Patient supposed use a walker but does not use one. Lives of [facility]. Smoking a pack a day for close to 70 years. Alcohol occasionally. Physical examination: VITAL SIGNS: 97.6, 95, 18, 160/75, 97% on 2 L GENERAL: Reclining in bed, comfortable EYES: Pupils equal. Conjunctiva normal. HEENT: External appearance of nose and ears normal, oral cavity grossly normal. NECK: JVD not raised; masses not palpable. HEART: First and second heart sounds are normal; no edema. LUNGS:[ Respiratory rate increased, diminished breath sounds. ABDOMEN: Soft, nontender, liver spleen not palpable, no masses palpable. PSYCH: Patient able to answer simple questions, mood affect anxiousl. MUSCULOSKELETAL:No Clubbing/cyanosis;muscles-grossly intact evidence of OA NEUROLOGICAL: mouth pulled to the left, with speech slurred, power in the right arm 1/5, power in the right leg 3/5. Reflexes increased on the right side. Upgoing Babinski on the right side. INVESTIGATIONS, reviewed in the clinical context: COVID 19: Not detected July: WBC 10.5 globin 13.5 platelets 340 potassium 3.7 creatinine 1.23 Urine drug screen: Negative 2-D echocardiogram: EF 55-60%. MRI brain: Left basal ganglia infarct. WBC 8.3 hemoglobin 13 platelets 315 progression 3.9 creatinine 0.98 Troponin I 0.[address] brain: Old left-sided infarct. Cerebral atrophy. No change from before CT angiogram head and neck: Mild plate formation of the carotid artery bifurcation. Not otherwise. EKG tracing personally reviewed by me-normal sinus rhythm Chest x-ray film personally reviewed by me-possible chronic changes Assessment and plan: -Acute stroke in the left basal ganglia, affecting speech and right arm right leg . Aspirin, Brillinta, Lipitor. PTOT. 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 -COPD, in a current smoker DuoNeb 3 times a day -Essential hypertension Lopressor 12.5 mg twice a day -Hyperlipidemia Lipitor -Chronic nicotine dependence, cigarette smoker Nicotine patch 21 -Acute dysarthria secondary to stroke Speech therapy. -PAD Aspirin, Lipitor -Pharyngeal dysphagia. , Secondary to stroke Seen by speech therapy. Ground diet with nectar thick liquids. One is to 1 assist. Medications crushed.. -DO NOT RESUSCITATE Stable. Continue current treatment plan. Pending discharge to rehab. manager of clinical working with the patient..
[2022-08-09] MEDS: ATORVASTATIN 80 MG TAB PO SCH (21:32)
[2022-08-09] MEDS: METOPROLOL TARTRATE 12.5 MG TAB PO SCH (21:32)
[2022-08-10] MEDS: IPRATROPIUM-ALBUTEROL 3 ML NEB INHALATION SCH ×2 (07:54→15:39)
[2022-08-10] MEDS: NICOTINE 21MG/24HR PATCH TRANSDERM SCH (08:46)
[2022-08-10] MEDS: METOPROLOL TARTRATE 12.5 MG TAB PO SCH (08:47)
[2022-08-10] MEDS: ENOXAPARIN 40 MG/0.4 ML SYRINGE SQ SCH (08:47)
[2022-08-10] MEDS: TICAGRELOR 90 MG TAB PO SCH (08:47)
[2022-08-10] MEDS: PANTOPRAZOLE 40 MG TABLET PO SCH (08:47)
[2022-08-10] MEDS: ASPIRIN 81 MG PO SCH (08:47)
[2022-08-10 09:09] VITALS: BMI 19.1
[2022-08-10 11:12] VITALS: TEMP 97.9
--- NOTE | 2022-08-10 11:18 | P.PN ---
Subjective Progress Note Date: 08/09/22 Patient was seen for a follow-up. Patient is laying in the bed. Offers no new complaints. Patient's family members were not present today either. Patient is definitely improved today. His speech continues to be quite dysarthric. Patient's right leg has improved. Able to move his right hand a little. Patient denies any headache, no dizziness. No new symptoms. Objective - Vital Signs Vital signs: Vital Signs Temp 97.9 F 08/10/22 08:00 Pulse 91 08/10/22 08:06 Resp 18 08/10/22 08:00 BP 116/72 08/10/22 08:00 Pulse Ox 96 08/10/22 08:00 FiO2 70 08/06/22 17:33 Intake & Output 08/09/22 08/10/22 08/10/22 18:59 06:59 18:59 Intake Total 120 Output Total 370 225 Balance -370 -105 Weight 47.5 kg 47.5 kg Intake: IV 120 Sodium Chloride 0.9% 1, 120 000 ml @ 10 mls/hr IV . Q24H [facility] Rx#:[id number] Output: Urine 370 225 Other: Voiding Method Urinal Indwelling Catheter Indwelling Catheter - Exam Patient is alert and awake in no distress. Speech is at least moderate to severely dysarthric. Patient can name and repeat objects. Language functions are intact, although he has significant expressive dysphasia. Patient has right facial weakness, central type, moderate. Visual vazquez are full with no neglect. Extraocular muscles are intact. Tongue deviates slightly to the right. Muscle strength is normal in the left arm and left leg. On the right side, patient has 2+3 at the staff accountant. No movement proximally. Patient able to hold his right leg off the bed, and hip flexion is 4+, ankle dorsiflexion 5. Sensory to touch is decreased in the right arm as compared to the left. Cannot check [id number] testing or [id number] on the right. Tone is decreased in the right upper limb and bulk of muscles normal. - Labs CBC & Chem 7: 08/07/22 03:57 08/07/22 03:57 Assessment and Plan Assessment: * Acute ischemic stroke, with right hemiparesis. MRI revealed acute infarct involving the left basal ganglia and adjacent periventricular white matter. Patient did not receive TPA. No LVO noted on CTA of head and neck. * Dysphagia, due to above * Hypertension * Hyperlipidemia * Chronic heavy tobacco use * History of subacute stroke in November 2021. * Noncompliant with medication Plan: * Patient is clinically improved today as compared to yesterday. His right leg is stronger. Right hand is slightly improved. Still no movement proximally in the right upper extremity. * MRI of the brain revealed acute infarct involving the left basal ganglia and adjacent periventricular white matter * CTA of head and neck did not show any significant intracranial or extracranial stenosis. No LVO. * 2-D echo revealed normal left ventricular systolic function. Left atrial size is normal. No evidence for an atrial septal defect. EF is normal 55-60%. Small left ventricular cavity. * Fasting lipid panel with cholesterol 215, LDL 152, HDL 47 triglycerides 77. Continue Lipitor 80 mg daily. * Hemoglobin A1c 5.8 on 11/08/2021. * Continue aspirin 81 mg daily and Brilinta 90 mg twice a day. * Slowly optimize control of blood pressure to target <130/90 * DVT prophylaxis: Patient on Lovenox 40 mg subcu daily. Patient also on Protonix for gastric ulcer prophylaxis. * PT OT, speech therapy following. * Appreciate PMNR input. Patient to be transferred to inpatient rehab soon.
--- NOTE | 2022-08-10 12:25 | P.DS ---
Providers Date of admission: 08/05/22 19:41 Expected date of discharge: 08/10/22 Attending physician: Aram Duran Consults: 08/05/22 19:41 Consult Physician Routine Consulting Provider: Star Mera Consult Reason/Comments: CVA Do you want consulting provider notified?: Yes, Notify in am Consult Physician Stat Consulting Provider: Britton Blanca Consult Reason/Comments: CVA with deficits Do you want consulting provider notified?: Already Contacted 08/07/22 12:41 Consult Physician Routine Consulting Provider: Derrick Irwin Consult Reason/Comments: rehab Do you want consulting provider notified?: Yes Primary care physician: El Barajas MD Procedures: Chief Complaint: Found on the floor This is a pleasant 82-year-old patient follows with visiting physicians Dr. Tejada. Chronic stable medical conditions include COPD, hypertension, hyperlipidemia, PAD prior strokes and infarcts, cognitive impairment, smoker, lives in assisted living. Accompanied by son and daughter in the ICU today.. Patient lives of [facility]. EMS arrived to find the patient in the hallway supine on the floor, just outside his door residence. Patient's son who arrived found that the speech was also different. There was some right-sided facial droop noted. Along with drooling. In the ER stroke scale with EMS was negative. Patient was reported to be normal at 11 AM was about 4 hours and 40 minutes prior to arrival as per the ER notes. Patient bit of the ICU/zoology professor consulted. In addition to neurologist. This morning patient speech remains slow. Applesauce being tried. Right-sided weakness both the arm and the leg. No change in vision. No headache. 08/07/2022: ICU. No worsening from yesterday neuro symptoms. Speech slurred. On pured diet. Weakness in the right arm greater than right leg. Seen by speech. Stroke confirmed left basal ganglia area. no code. Spoke to patient's other son at the bedside. Looking at rehab. July: Oral fluid ICU. Some improvement in weakness in the right leg. Modified barium swallow today. Change to ground diet. Lopressor held because of blood pressure control without the same. Spoke to the son at the bedside. Looking at inpatient rehab tomorrow. Speech still slurred speech. Oral intake fair. July: Overflow into ICU. Tolerating diet. Clinical status unchanged. Discussed with outpatient case manager. Stable for DC. Pending rehab either at [facility] or [facility]. manager solar is working on the same. Discussed with son at the bedside. Discussed with the patient. Add Lopressor 12.5 by mouth twice a day for blood pressure. 08/10/2022: Comfortable. Laying in bed. No change in neurological status. Discussed with the patient. Discussed with the son at the bedside. And outpatient case manager. Going to rehab. Discussion and discharge planning more than 35 minutes Past medical history to include: COPD, hypertension, hyperlipidemia, PAD, prior CVA including the left parietal lobe and other lacunar infarcts including the left thalamus and internal capsule. Social history: Patient supposed use a walker but does not use one. Lives of [employer]. Smoking a pack a day for close to 70 years. Alcohol occasionally. Physical examination: VITAL SIGNS: 97.9, 88, 18, 1 with 6/72, 96% on 2 L GENERAL: Reclining in bed, comfortable EYES: Pupils equal. Conjunctiva normal. HEENT: External appearance of nose and ears normal, oral cavity grossly normal. NECK: JVD not raised; masses not palpable. HEART: First and second heart sounds are normal; no edema. LUNGS:[ Respiratory rate increased, diminished breath sounds. ABDOMEN: Soft, nontender, liver spleen not palpable, no masses palpable. PSYCH: Patient able to answer simple questions, mood affect anxiousl. MUSCULOSKELETAL:No Clubbing/cyanosis;muscles-grossly intact evidence of OA NEUROLOGICAL: mouth pulled to the left, speech slurred, power in the right arm 1/5, power in the right leg 3/5. Reflexes increased on the right side. Upgoing Babinski on the right side. INVESTIGATIONS, reviewed in the clinical context: COVID 19: Not detected July: WBC 10.5 globin 13.5 platelets 340 potassium 3.7 creatinine 1.23 Urine drug screen: Negative 2-D echocardiogram: EF 55-60%. MRI brain: Left basal ganglia infarct. WBC 8.3 hemoglobin 13 platelets 315 progression 3.9 creatinine 0.98 Troponin I 0.[address] brain: Old left-sided infarct. Cerebral atrophy. No change from before CT angiogram head and neck: Mild plate formation of the carotid artery bifurcation. Not otherwise. EKG tracing personally reviewed by me-normal sinus rhythm Chest x-ray film personally reviewed by me-possible chronic changes Assessment and plan: -Acute stroke in the left basal ganglia, affecting speech and right arm right leg . Aspirin, Brillinta, Lipitor. PTOT. 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 -COPD, in a current smoker DuoNeb 3 times a day -Essential hypertension Lopressor 12.5 mg twice a day -Hyperlipidemia Lipitor -Chronic nicotine dependence, cigarette smoker Nicotine patch 21 -Acute dysarthria secondary to stroke Speech therapy. -PAD Aspirin, Lipitor -Pharyngeal dysphagia. , Secondary to stroke Seen by speech therapy. Ground diet with nectar thick liquids. 1: 1 assist. Medications crushed.. -DO NOT RESUSCITATE Disposition: [facility], inpatient rehab Patient Condition at Discharge: Critical Plan - Discharge Summary New Discharge Prescriptions: New Ticagrelor [Brilinta] 90 mg PO BID tab Nicotine 21Mg/24Hr Patch [Habitrol] 1 patch TRANSDERM DAILY #14 patch Melatonin 3 mg PO HS PRN tab PRN Reason: Insomnia Acetaminophen Tab [Tylenol] 650 mg PO Q6HR PRN tab PRN Reason: Mild Pain Or Fever > 100.5 Aspirin 81 mg PO DAILY tab Ipratropium-Albuterol Nebulize [Duoneb 0.5 mg-3 mg/3 ml Soln] 3 ml INHALATION RT-TID each Atorvastatin [Lipitor] 80 mg PO HS tab Pantoprazole [Protonix] 40 mg PO AC-BRKFST tab Metoprolol Tartrate [Lopressor] 12.5 mg PO BID tab Discharge Medication List Acetaminophen Tab [Tylenol] 650 mg PO Q6HR PRN tab 08/09/22 [Rx] Aspirin 81 mg PO DAILY tab 08/09/22 [Rx] Atorvastatin [Lipitor] 80 mg PO HS tab 08/09/22 [Rx] Ipratropium-Albuterol Nebulize [Duoneb 0.5 mg-3 mg/3 ml Soln] 3 ml INHALATION RT-TID each 08/09/22 [Rx] Melatonin 3 mg PO HS PRN tab 08/09/22 [Rx] Nicotine 21Mg/24Hr Patch [Habitrol] 1 patch TRANSDERM DAILY #14 patch 08/09/22 [Rx] Pantoprazole [Protonix] 40 mg PO AC-BRKFST tab 08/09/22 [Rx] Ticagrelor [Brilinta] 90 mg PO BID tab 08/09/22 [Rx] Metoprolol Tartrate [Lopressor] 12.5 mg PO BID tab 08/10/22 [Rx] Follow up Appointment(s)/Referral(s): El Barajas MD [Primary Care Provider] - 1-2 days Diana Khalil MD [Medical Doctor] - 10 Days
[2022-08-10 14:30] VITALS: BP 124/56; PULSE 68; RESP 15
== END 2022-08-10 15:40 | disposition still patient (30) | DRG 64 ==
LOC: EC 15:03 → 2SICU 19:41
PROVIDERS: ADMIT Hospitalist; ATTEND Hospitalist
DX: I63.89 Other cerebral infarction (principal); E43 Unspecified severe protein-calorie malnutrition; N17.9 Acute kidney failure, unspecified; G81.91 Hemiplegia, unspecified affecting right dominant side; F02.818 Dementia in other diseases classified elsewhere, unspecified severity, with other behavioral disturbance; J44.1 Chronic obstructive pulmonary disease with (acute) exacerbation; Z68.1 Body mass index [BMI] 19.9 or less, adult; I08.2 Rheumatic disorders of both aortic and tricuspid valves; G93.89 Other specified disorders of brain; I10 Essential (primary) hypertension; I73.9 Peripheral vascular disease, unspecified; I65.23 Occlusion and stenosis of bilateral carotid arteries; Z95.820 Peripheral vascular angioplasty status with implants and grafts; R13.13 Dysphagia, pharyngeal phase; R47.01 Aphasia; Z99.81 Dependence on supplemental oxygen; E86.0 Dehydration; R29.810 Facial weakness; I25.10 Atherosclerotic heart disease of native coronary artery without angina pectoris; E78.5 Hyperlipidemia, unspecified; E87.5 Hyperkalemia; Z66 Do not resuscitate; T50.916A Underdosing of multiple unspecified drugs, medicaments and biological substances, initial encounter; D18.00 Hemangioma unspecified site; R41.89 Other symptoms and signs involving cognitive functions and awareness; F17.210 Nicotine dependence, cigarettes, uncomplicated; R47.1 Dysarthria and anarthria; R73.9 Hyperglycemia, unspecified; I49.8 Other specified cardiac arrhythmias; R29.709 NIHSS score 9; R26.9 Unspecified abnormalities of gait and mobility; R47.02 Dysphasia; Z20.822 Contact with and (suspected) exposure to COVID-19; R29.704 NIHSS score 4; R29.707 NIHSS score 7; Z79.899 Other long term (current) drug therapy; Z79.82 Long term (current) use of aspirin; Z79.02 Long term (current) use of antithrombotics/antiplatelets; Z91.14 Patient's other noncompliance with medication regimen; Z82.3 Family history of stroke; I69.30 Unspecified sequelae of cerebral infarction
CPT/HCPCS: 36415; 70450; 70496; 70498; 70553; 71046; 74230; 80053; 80061; 80306; 81001; 83690; 83880; 84484; 85025; 85379; 87635; 93005; 93306; 94640; 99291

== ENCOUNTER 2022-09-10 23:13 | Emergency (ER) | payer MEDICARE, OTHER ==
--- NOTE | 2022-09-10 23:17 | ED ---
Fall HPI - General Stated Complaint: Fall Time Seen by Provider: 09/10/22 23:16 Source: RN notes reviewed, old records reviewed, Caregiver Mode of arrival: EMS Limitations: altered mental status, physical limitation - History of Present Illness Initial Comments: This is an 82-year-old male presenting at baseline. Patient has fall unsure of time prior to arrival. Patient is on blood thinners concern for fall on blood thinners. Patient had no obvious injuries noted here patient had no significant complaints, patient here for evaluation regarding fall MD Complaint: fall -: unknown Fall From: standing When Fall Occurred: 1-3 hours [facility] Fall Witnessed: yes, by bystander, yes, by living facility staff Place Fall Occurred: home Loss of Consciousness: none Prolonged Down Time?: no Symptoms Prior to Fall: none Severity: mild Severity scale (1-10): 1 Context: tripped/slipped Associated Symptoms: denies - Related Data Previous Rx's Medication Instructions Recorded Acetaminophen Tab [Tylenol] 650 mg PO Q6HR PRN tab 08/09/22 Aspirin 81 mg PO DAILY tab 08/09/22 Atorvastatin [Lipitor] 80 mg PO HS tab 08/09/22 Ipratropium-Albuterol Nebulize 3 ml INHALATION RT-TID each 08/09/22 [Duoneb 0.5 mg-3 mg/3 ml Soln] Melatonin 3 mg PO HS PRN tab 08/09/22 Nicotine 21Mg/24Hr Patch [Habitrol] 1 patch TRANSDERM DAILY #14 patch 08/09/22 Pantoprazole [Protonix] 40 mg PO AC-BRKFST tab 08/09/22 Ticagrelor [Brilinta] 90 mg PO BID tab 08/09/22 Metoprolol Tartrate [Lopressor] 12.5 mg PO BID tab 08/10/22 Allergies Allergy/AdvReac Type Severity Reaction Status Date / Time No Known Allergies Allergy Verified 08/05/22 16:05 Review of Systems ROS Statement: Those systems with pertinent positive or pertinent negative responses have been documented in the HPI. ROS Other: All systems not noted in ROS Statement are negative. 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 History of Any Multi-Drug Resistant Organisms: None Reported Past Surgical History: No Surgical Hx Reported Additional Past Surgical History / Comment(s): Fem-fem bypass at [facility] Past Anesthesia/Blood Transfusion Reactions: No Reported Reaction Past Psychological History: No Psychological Hx Reported Smoking Status: Current every day smoker Past Alcohol Use History: None Reported Past Drug Use History: None Reported - Past Family History Father History Unknown: Yes Additional Family Medical History / Comment(s): Father at age 93 from old age. Mother Family Medical History: CVA/TIA Additional Family Medical History / Comment(s): Mother in her 70s. Unknown cause. Sister(s) Additional Family Medical History / Comment(s): Patient has 4 sisters and 2 from motor vehicle accident. Patient has one son that suffers from alcohol abuse. Patient has 2 daughters and one has from a brain aneurysm. Course Vital Signs 09/10/22 09/11/22 23:19 00:35 Temperature 97.5 F L Pulse Rate 70 77 Respiratory 18 18 Rate Blood Pressure 139/60 144/69 O2 Sat by Pulse 97 98 Oximetry - Reevaluation(s) Reevaluation #1: 09/10/22 Medical record is reviewed Reevaluation #2: 09/10/22 Patient symptoms unchanged here in the ER Reevaluation #3: 09/10/22 Patient informed results and questions are answered Reevaluation #4: 09/10/22 23:17 Differential Weakness: Hypoglycemia, shock, sepsis, hyponatremia, anemia, infection, ME, ETOH, adverse medicine reaction, overdose, stroke, this is not meant to be an all-inclusive list. Reevaluation #5: 09/10/22 23:17 Was pt. sent in by a medical professional or institution? @ -yes Did you speak to anyone other than the patient for history? @ -EMS Did you review nursing and triage notes? @ -agree Were old charts reviewed? @ -no Differential Diagnosis? @ -prior EKG interpreted by me (3pts min.)? @ -[none] X-rays interpreted by me (1pt min.)? @ -[yes ] CT interpreted by me (1pt min.)? @ -[none] U/S interpreted by me (1pt. min.)? @ -[none] What testing was considered but not performed? (CT, X-rays, U/S, labs)? Why? @ no What meds were considered but not given? Why? @ -[none]n Did you discuss the management of the patient with other professionals? @ no] Did you reconcile home meds? @ -no Was smoking cessation discussed for >3mins.? @ -[none] Was critical care preformed (if so, how long)? @ -[none] Were there social determinants of health that impacted care today? How? (Homelessness, low income, unemployed, alcoholism, drug addiction, transportation, low edu. Level, literacy, decrease access to med. care, halfway, rehab)? @ -no Was there de-escalation of care discussed even if they declined? (Discuss DNR or withdrawal of care, Hospice)? @ -no What co-morbidities impacted this encounter? (DM, HTN, Smoking, COPD, CAD, Cancer, CVA, Hep., AIDS, mental health diagnosis, sleep apnea, morbid obesity)? @ -no Was patient admitted / discharged? @ -DC Undiagnosed new problem with uncertain prognosis? @ -[none] Drug Therapy requiring intensive monitoring for toxicity (Heparin, Nitro, Insulin, Cardizem)? @ -[none] Were any procedures done? @ -[none] Diagnosis/symptom? @ -[default] Acute, or Chronic, or Acute on Chronic? @ -[default] Uncomplicated (without systemic symptoms) or Complicated (systemic symptoms)? @ -[default] Side effects of treatment? @ -[none] Exacerbation, Progression, or Severe Exacerbation] @ -[no] Poses a threat to life or bodily function? @ -[no] 09/20/22 01:14 Medical Decision Making - Medical Decision Making 82 female that mechanical trip and fall at this point patient is in no distress no injury from the fall patient can be discharged home - EKG Data -: EKG Interpreted by Me (EKG sinus 70. I 128 QRS 76 QTC 395) - Radiology Data Radiology results: report reviewed (CT brain C-spine chest and pelvis x-ray are negative for traumatic injury), image reviewed Disposition Clinical Impression: Fall Disposition: HOME SELF-CARE Condition: Good Instructions (If sedation given, give patient instructions): Fall Prevention for Older Adults (ED) Is patient prescribed a controlled substance at d/c from ED?: No Referrals: Julio Dixon MD [Primary Care Provider] - 1-2 days Time of Disposition: 00:05
[2022-09-10 23:25] VITALS: RESP 18; TEMP 97.5
--- NOTE | 2022-09-10 23:50 | CT ---
EXAMINATION TYPE: CT brain darryl pardo con DATE OF EXAM: 09/10/2022 COMPARISON: CT 08/05/2022 HISTORY: Fall CT DLP: 1273.3 mGycm Automated exposure control for dose reduction was used. Images of the brain and cervical spine obtained with no contrast. There is cerebral cortical atrophy. There is no mass effect or midline shift. No sign of intracranial hemorrhage. There is patchy hypodensity in the white matter of the left parietal and posterior tempo ral lobe and consistent with chronic small vessel ischemia. The calvarium is intact. The skull base i s intact. There is normal aeration of the mastoid sinuses. The cervical vertebra show fairly normal alignment. There is degenerative disc space narrowing at C5- 6 and C6-7 with mild spurring of the endplates. There is hypertrophic multilevel cervical facet arthr opathy. No compression fracture. No subluxation. IMPRESSION: Cerebral atrophy and chronic small vessel ischemia. Brain unchanged compared to old exam. Old left parietal infarct. Spondylotic changes in the lower cervical spine. No fracture. No change.
--- NOTE | 2022-09-10 23:54 | XR ---
EXAMINATION TYPE: XR chest 1V DATE OF EXAM: 09/10/2022 COMPARISON: 08/05/2022 HISTORY: Fall. Pain TECHNIQUE: FINDINGS: Heart is normal. Lungs are clear of infiltrate. The thoracic aorta is atheromatous. No pleu ral effusion. There are chest leads. IMPRESSION: No active cardiopulmonary disease. Normal heart. No change.
--- NOTE | 2022-09-10 23:56 | XR ---
EXAMINATION TYPE: XR pelvis AP view DATE OF EXAM: 09/10/2022 COMPARISON: NONE HISTORY: Fall. Pain TECHNIQUE: Single view FINDINGS: There is osteopenia. The pelvic ring is intact. There are bilateral iliac stents. The proxi mal femurs are intact. Acetabula are intact. No fracture seen. IMPRESSION: No acute abnormality of the pelvis. No fracture.
[2022-09-11 00:36] VITALS: BP 144/69; PULSE 77
== END 2022-09-11 01:00 | disposition home or self-care (01) ==
LOC: EC 23:13
DX: S09.90XA Unspecified injury of head, initial encounter (principal); I10 Essential (primary) hypertension; J44.9 Chronic obstructive pulmonary disease, unspecified; E78.5 Hyperlipidemia, unspecified; F17.200 Nicotine dependence, unspecified, uncomplicated; Z79.82 Long term (current) use of aspirin; Z79.899 Other long term (current) drug therapy; W18.30XA Fall on same level, unspecified, initial encounter; Y92.098 Other place in other non-institutional residence as the place of occurrence of the external cause
CPT/HCPCS: 70450; 71045; 72125; 72170; 99285